=== PATIENT | female | born 1955 | race Two or more races ===

== ENCOUNTER 2024-06-25 09:08 | Inpatient (IN) | payer OTHER, MEDICAID ==
[~2024-06-25] VITALS: Ht 157.5 cm; Wt 42.2 kg
--- NOTE | 2024-06-25 09:42 | ED.PDOC ---
GI ASSESSMENT HPI Comments 69 year old female presents to the ED with chief complaint of diarrhea and blood in stool. Patient reports that she has been experiencing diarrhea with noted blood present in her stools and associated abdominal cramping for the past 5 days. Patient relays that she has been drinking 2 beers a day up until last week. Patient states she is currently on Baclofen for chronic body pains. Patient denies any N/V, hematemesis, fever, chills, dysuria, hematuria, or dizziness. Chief Complaint: Diarrhea Time Seen by MD: 09:39 Reviewed Notes: Nurses Notes, Medications, Allergies Allergies: Coded Allergies: NO KNOWN ALLERGIES (Unverified , 06/25/24) Information Source: Patient Mode of Arrival: Ambulatory Timing: Days Duration: Since onset Prehospital treatment: None Quality: Cramping Vomitus: None Stool: Blood Streaked, Loose Severity: Moderate Recent: None Recent Hx of: None Pain Location: Periumbilical Modifying Factors: Nothing Associated sign and symptoms: Diarrhea, Abdominal Pain, Blood in Stool Past Medical History PAST MEDICAL HISTORY: Arthritis, PUD, Seizures Surgical History: Denies all surgeries 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: 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 all 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 Hx Family History Family History: Reviewed,noncontributory to illness Social History Smoker: Non-Smoker Alcohol: Heavy Drugs: Marijuana Lives In: Home Constitutional: denies: chills, diaphoresis, fatigue, fever, malaise, sweats, weakness, others EENTM: denies: blurred vision, double vision, ear bleeding, ear discharge, ear drainage, ear pain, ear ringing, eye pain, eye redness, hearing loss, mouth pain, mouth swelling, nasal discharge, nose bleeding, nose congestion, nose pain, photophobia, tearing, throat pain, throat swelling, voice changes, others Respiratory: denies: cough, hemoptysis, orthopnea, SOB at rest, shortness of breath, SOB with excertion, stridor, wheezing, others Cardiovascular: denies: chest pain, dizzy spells, diaphoresis, Dyspnea on exertion, edema, irregular heart beat, left arm pain, lightheadedness, palpitations, PND, syncope, others Gastrointestinal: reports: abdominal pain, blood streaked bowels, diarrhea; denies: abdomen distended, constipated, dysphagia, difficulty swallowing, hematemesis, melena, nausea, poor appetite, poor fluid intake, rectal bleeding, rectal pain, vomiting, others Genitourinary: denies: abnormal vagina bleeding, burning, dyspareunia, dysuria, flank pain, frequency, hematuria, incontinence, pain, , vagina discharge, urgency, others Neurological: denies: dizziness, fainting, headache, left sided numbness, left sided weakness, numbness, paresthesia, pre-existing deficit, right sided numbness, right sided weakness, seizure, speech problems, tingling, tremors, weakness, others Musculoskeletal: denies: back pain, gout, joint pain, joint swelling, muscle pain, muscle stiffness, neck pain, others Integumetry: denies: bruises, change in color, change in hair/nails, dryness, laceration, lesions, lumps, rash, wounds, others Allergic/Immunocompromised: denies: Difficulty Healing, Frequent Infections, Hives, Itching, others Hematologic/Lymphatic: denies: anemia, blood clots, easy bleeding, easy bruising, swollen glands, others Endocrine: denies: excessive hunger, excessive sweating, excessive thirst, excessive urination, flushing, intolerance to cold, intolerance to heat, unexplained weight gain, unexplained weight loss, others Psychiatric: denies: anxiety, bipolar disorder, depression, hopeless, panic disorder, schizophrenia, sleepless, suicidal, others All Other Systems: Reviewed and Negative Physical Exam General Appearance: No Apparent Distress, Normal HEENT: Normal ENT Inspection, PERRL/EOMI Neck: Full Range of Motion, Non-Tender, Normal, Normal Inspection Respiratory: Chest Non-Tender, Lungs Clear, No Accessory Muscle Use, No Respiratory Distress, Normal Breath Sounds Cardiovascular: No Edema, No JVD, No Murmur, No Gallop, Normal Peripheral Pulses, Regular Rate/Rhythm Breast Exam: Deferred Gastrointestinal: No Organomegaly, No Pulsatile Mass, Normal Bowel Sounds, Soft, Tenderness, Other (Diarrhea for five days with a bleeding) Genitalia: Deferred Pelvic: Deferred Rectal: Deferred Extremities: No calf tenderness, Normal capillary refill, Normal inspection, Normal range of motion, Non-tender, No pedal edema Musculoskeletal : Apperance: Normal Neurologic: Alert, international controller II-XII nml as Tested, No Motor Deficits, Normal Affect, Normal Mood, No Sensory Deficits Cerebellar Function: Normal Reflexes: Normal Skin: Dry, Normal Color, Warm Peripheral Pulses: 1+ carotid (R), 1+ carotid (L) Lymphatic: No Adenopathy Was a procedure done? Was a procedure done?: No GI differential Dx Differential Diagnosis: Diverticular disease, Gastritis/PUD, Gastroenteritis, GI hemorrhage, Inflammatory BD, UTI, Dehydration, Diabetes/ DKA, Drug toxicity, Electrolyte Imbalance, Food Poisoning, Hypovolemia, Ischemic Bowel, Mass, Anemia X-Ray, Labs, Meds, VS Vital Signs Date Time Temp Pulse Resp B/P (MAP) Pulse Ox O2 Delivery O2 Flow Rate FiO2 06/25/24 10:09 97.8 96 18 139/92 (108) 98 97.8 06/25/24 10:09 96 18 98 Room Air 06/25/24 09:27 98.2 117 18 154/116 (129) 96 98.2 Lab Test 06/25/24 09:45 06/25/24 09:37 Range/Units White Blood Count 10.1 4.4-10.8 10^3/uL Red Blood Count 4.65 4.0-5.20 10^6/uL Hemoglobin 14.4 12.2-16.2 g/dL Hematocrit 43.4 36.0-46.0 % Mean Corpuscular Volume 93.4 80.0-100.0 fL Mean Corpuscular Hemoglobin 31.0 28.0-32.0 pg Mean Corpuscular Hemoglobin Concent 33.3 32.0-36.0 g/dL Red Cell Distribution Width 14.0 11.8-14.3 % Platelet Count 255 140-450 10^3/uL Mean Platelet Volume 9.6 6.9-10.8 fL Neutrophils (%) (Auto) 72.1 37.0-80.0 % Lymphocytes (%) (Auto) 20.6 10.0-50.0 % Monocytes (%) (Auto) 5.0 0.0-12.0 % Eosinophils (%) (Auto) 1.8 0.0-7.0 % Basophils (%) (Auto) 0.5 0.0-2.0 % Neutrophils # (Auto) 7.3 1.6-8.6 10 ^3/uL Lymphocytes # (Auto) 2.1 0.4-5.4 10 ^3/uL Monocytes # (Auto) 0.5 0-1.3 10 ^3/uL Eosinophils # (Auto) 0.2 0-0.8 10 ^3/uL Basophils # (Auto) 0 0-0.2 10 ^3/uL Nucleated Red Blood Cells 0.0 % Prothrombin Time 10.3 9.3-11.8 sec Prothrombin Time INR 0.97 0.9-1.15 Activated Partial Thromboplast Time 25.3 24.5-34.5 SEC Sodium Level 145 136-145 mmol/L Potassium Level 5.0 3.5-5.1 mmol/L Chloride Level 110 H 98-107 mmol/L Carbon Dioxide Level 26 20-31 mmol/L Anion Gap 9 5-15 Blood Urea Nitrogen 18 9-23 mg/dL Creatinine 0.80 0.550-1.02 mg/dL Glomerular Filtration Rate Calc 80 >90 mL/min BUN/Creatinine Ratio 22.5 H 10.0-20.0 Serum Glucose 111 H 74-106 mg/dL Calcium Level 10.3 8.7-10.4 mg/dL Magnesium Level 1.8 1.6-2.6 mg/dL Total Bilirubin 0.5 0.2-1.0 mg/dL Aspartate Amino Transferase (AST) 22 13-40 U/L Alanine Aminotransferase (ALT) 20 7-40 U/L Alkaline Phosphatase 77 46-116 U/L Total Protein 7.7 5.7-8.2 g/dL Albumin 4.9 H 3.2-4.8 g/dL Lipase 56 H 12-53 U/L Urine Color Yellow Yellow Urine Clarity Clear Clear Urine pH 5.5 5.0-9.0 Urine Specific [place] 1.023 1.001-1.035 Urine Protein Trace H Negative Urine Ketones Negative Negative Urine Blood Negative Negative /uL Urine Nitrite Negative Negative Urine Bilirubin Negative Negative Urine Urobilinogen Normal Negative mg/dL Urine Leukocyte Esterase Negative Negative /uL Urine RBC 1 0 - 4 /hpf Urine Microscopic WBC 2 0-5 /HPF Urine Squamous Epithelial Cells Few <5 /hpf Urine Bacteria None seen None Seen /hpf Urine Mucus Few None Seen Urine Glucose Normal Normal mg/dL Current Medications Medications (Trade) Dose Ordered Sig/Sean Route Start Time Stop Time Status Last Admin Sodium Chloride 1,000 ml @ 1,000 mls/hr Q1H ONCE IVB 06/25/24 09:45 06/25/24 10:44 DC 06/25/24 10:20 CT Abd/Pel: FINDINGS: The lung bases demonstrate atelectasis. Right adrenal gland unremarkable. Left adrenal gland and left kidney are removed. Small, pancreas unremarkable. No enhancing hepatic lesion. Cholecystectomy. Right kidney demonstrates no hydronephrosis. Stomach is partially distended. There is a large mass in the ascending colon measuring 7.7 x 4.3 cm which results in luminal narrowing. There also may be a segment of small bowel intussusception into this segment of the colonic mass. Normal appendix. Abdominal aortic atherosclerotic disease. Bladder partially distended. Large heterogeneously enhancing mass in the uterus measuring 8.5 x 6.8 cm. No free pelvic fluid. Bladder partially distended. No inguinal lymphadenopathy. No aggressive osseous process. IMPRESSION: 1. Large colonic mass within the ascending colon measuring 7.7 x 4.3 cm with luminal narrowing, most consistent with colonic neoplasm. Recommend GI and oncology consultation. 2. There may be a segment of the terminal ileum intussusception into the colonic mass/neoplasm 3. Large heterogeneously enhancing mass in the uterus measuring 8.5 x 6.8 cm, possible uterine leiomyoma but other etiologies including leiomyosarcoma can not be excluded. 4. Left nephrectomy/ adrenalectomy. 5. Other findings as described. X-Ray, Labs, Meds, VS Comment Course in the emergency department eventful patient came in complaining of persistent diarrhea bloody Chest x-ray shows COPD CBC normal Urine negative INR 0.97 CMP normal Lipase [address] of the abdomen and pelvis shows a large mass in the ascending colon with the terminal ileum into Ceftin into the colonic mass This also large mass in the uterus Patient has no pain except for the cramps from the diarrhea Patient will be admitted for further care Time of 1ST Reevaluation: 10:39 Reevaluation 1ST: Unchanged Time of 2ND Reevaluation: 12:23 Reevaluation 2ND: Unchanged Patient Education/Counseling: Diagnosis, Treatment, Prognosis Family Education/Counseling: Diagnosis, Treatment, Prognosis, No Family Present Departure 1 Departure Time of Disposition: 12:19 Impression: Primary Impression: Gastroenteritis Additional Impressions: Colonic neoplasm Uterine mass Rectal bleeding History of nephrectomy COPD (chronic obstructive pulmonary disease) Disposition: ADMITTED INPATIENT Admit to: Tele Condition: Guarded Critical Care Note Critical Care Time?: No Stability Stability form required: Yes Unstable for transfer: Telemetry monitoring (Telemetry monitoring required), Requires medication (Requires Med for stabilization) Heart Score Heart Score: Heart Score Response (Comments) Value History Slightly Suspicious 0 EKG N/A 0 Age >65 2 Risk Factors 1 or 2 risk factors 1 Troponin N/A 0 Total 3 I personally scribed for RUTH KUHN MD ([email or web address]) on 06/25/24 at 09:42. Electronically submitted by Phill Alexander ([email or web address]). I personally scribed for RUTH KUHN MD ([email or web address]) on 06/25/24 at 11:38. Electronically submitted by Phill Alexander ([email or web address]). RUTH KUHN MD Jun 25, 2024 09:42
[2024-06-25 09:57] LABS: Urine Bacteria None Seen /hpf (None Seen)
[2024-06-25 10:12] LABS: Basophils # (auto) 0 10 ^3/uL (0-0.2); Basophils % (auto) 0.5 % (0.0-2.0); Eosinophils # (auto) 0.2 10 ^3/uL (0-0.8); Eosinophils % (auto) 1.8 % (0.0-7.0); Hematocrit 43.4 % (36.0-46.0); Hemoglobin 14.4 g/dL (12.2-16.2); Lymphocytes # (auto) 2.1 10 ^3/uL (0.4-5.4); Lymphocytes % (auto) 20.6 % (10.0-50.0); Mean Corpuscular Hgb Conc. 33.3 g/dL (32.0-36.0); Mean Corpuscular Volume 93.4 fL (80.0-100.0); Monocytes # (auto) 0.5 10 ^3/uL (0-1.3); Neutrophils # (auto) 7.3 10 ^3/uL (1.6-8.6); Neutrophils % (auto) 72.1 % (37.0-80.0); Platelet Count (auto) 255 10^3/uL (140-450); Red Blood Cells 4.65 10^6/uL (4.0-5.20); White Blood Cell 10.1 10^3/uL (4.4-10.8)
[2024-06-25 10:16] LABS: Urine Blood Negative /uL (Negative); Urine Clarity Clear (Clear); Urine Color Yellow (Yellow); Urine Mucus FEW (None Seen); Urine Protein, UAD TRACE (Negative); Urine Specific Gravity 1.023 (1.001-1.035); Urine Squamous Epithelial Cell FEW /hpf (<5); Urine Urobilinogen Normal (Negative); Urine WBC 2 /HPF (0-5); Urine pH 5.5 (5.0-9.0)
[2024-06-25] MEDS: SODIUM CHLORIDE 0.9% 1,000 ML IVB ONE (10:20)
[2024-06-25 10:23] LABS: Alanine Aminotransferase 20 U/L (7-40); Alkaline Phosphatase 77 U/L (46-116); Anion Gap 9 (5-15); Aspartate Aminotransferase 22 U/L (13-40); BUN/Creatinine Ratio 22.5 (10.0-20.0); Bilirubin, Total 0.5 mg/dL (0.2-1.0); Blood Urea Nitrogen 18 mg/dL (9-23); Calcium 10.3 mg/dL (8.7-10.4); Carbon Dioxide 26 mmol/L (20-31); Magnesium 1.8 mg/dL (1.6-2.6); Sodium 145 mmol/L (136-145); Total Protein 7.7 g/dL (5.7-8.2)
[2024-06-25 10:25] LABS: Albumin 4.9 g/dL (3.2-4.8); Chloride 110 mmol/L (98-107); Glucose 111 mg/dL (74-106); Lipase 56 U/L (12-53)
[2024-06-25 10:29] LABS: INR 0.97 (0.9-1.15); Partial Thromboplastin Time 25.3 SEC (24.5-34.5); Prothrombin Time 10.3 sec (9.3-11.8)
[2024-06-25] MEDS: IOHEXOL 300 MG/ML 100ML BOTTLE IJ ONE (10:49)
--- NOTE | 2024-06-25 11:32 | DVH ---
Indication: Abdominal pain rectal bleeding diarrhea Technique: CT axial images of the abdomen and pelvis are obtained with intravenous contrast. Coronal and sagittal reformats were obtained. Radiation Dose Information: CTDI volume is 5.07 mGy. Dose-length product is 215.53 mGy*cm Comparison: None FINDINGS: The lung bases demonstrate atelectasis. Right adrenal gland unremarkable. Left adrenal gland and left kidney are removed. Small, pancreas unremarkable. No enhancing hepatic lesion. Cholecystectomy. Right kidney demonstrates no hydronephrosis. Stomach is partially distended. There is a large mass in the ascending colon measuring 7.7 x 4.3 cm which results in luminal narrowin g. There also may be a segment of small bowel intussusception into this segment of the colonic mass. Normal appendix. Abdominal aortic atherosclerotic disease. Bladder partially distended. Large heterogeneously enhancing mass in the uterus measuring 8.5 x 6.8 cm. No free pelvic fluid. Danie dder partially distended. No inguinal lymphadenopathy. No aggressive osseous process. IMPRESSION: 1. Large colonic mass within the ascending colon measuring 7.7 x 4.3 cm with luminal narrowing, most consistent with colonic neoplasm. Recommend GI and oncology consultation. 2. There may be a segment of the terminal ileum intussusception into the colonic mass/neoplasm 3. Large heterogeneously enhancing mass in the uterus measuring 8.5 x 6.8 cm, possible uterine leiomy rajan but other etiologies including leiomyosarcoma can not be excluded. 4. Left nephrectomy/ adrenalectomy. 5. Other findings as described.
--- NOTE | 2024-06-25 11:50 | DVH ---
Procedure: XY CHEST TWO VIEWS ROUTINE 06/25/2024 10:35 AM Indication: COPD Comparison: None TECHNIQUE: XY CHEST TWO VIEWS ROUTINE FINDINGS: Medical devices: None. Cardiomediastinal: The heart is normal in size. Pulmonary vasculature is within normal limits. Athero sclerotic calcification of the aortic arch noted. Lungs: Hyperaerated lungs. No focal pulmonary opacity is seen. The costophrenic angles are clear. N o pneumothorax. Bones/soft tissues: No acute abnormality is noted. IMPRESSION: 1. No acute cardiopulmonary disease. Changes of COPD.
[2024-06-25] MEDS ORDERED: ACETAMINOPHEN 325 MG TAB PO PRN (12:45)
[2024-06-25 13:00] VITALS: PULSE 80; RESP 14; O2SAT 98
[2024-06-25] MEDS ORDERED: DULO1CAP5 PO (13:12)
[2024-06-25] MEDS ORDERED: GABA800T97 PO (13:12)
[2024-06-25] MEDS ORDERED: LEVE500T3 PO (13:12)
[2024-06-25] MEDS: SODIUM CHLORIDE 0.9% 1,000 ML IV SCH (13:30)
--- NOTE | 2024-06-25 13:35 | DVHHP2 ---
History of Present Illness Reason for Visit: Bloody diarrhea History of Present Illness QuigleyNoris alvarez is a 69-year-old female with past medical history of arthritis, PUD, epilepsy, and left nephrectomy who presents to the ED with bloody diarrhea and cramps with the abdominal pain x5 days. Patient reports that she has been h olding this off for some time but she knows that she gets bloody diarrhea constantly because of her peptic ulcer disease. Patient states that the pain is 5/10 intermittent and crampy like. Patient denies any chest pain, shortness of breath, fever, chills, recent trauma or injury, recent ingestion of spoiled food, recent sick contacts, lightheadedness, weakness, dizziness, nausea, or vomiting. Upon examination when given information about the CT abdominal pelvis results patient became very emotional and is unaware of any abnormalities or other diagnoses. MAILROOM PERSONNEL: Other (Epilepsy) Past Medical History Peptic ulcer disease Arthritis Past Surgical History: Other (Left nephrectomy) Family History: None, Other (Both ) Smoke: Quit ALCOHOL: heavy Drugs: Marijuana Lives: with Family Domestic Violence: Neg Review of Systems Gastrointestinal: Abdominal Pain, Diarrhea, Hematochezia Allergies: Coded Allergies: NO KNOWN ALLERGIES (Unverified , 06/25/24) Medications Current Medications Medications Dose Ordered Sig/Sean Route Start Time Stop Time Status Last Admin Dose Admin Sodium Chloride 1,000 ml @ 70 mls/hr [id number] IV 06/25/24 12:45 UNV Acetaminophen/ Hydrocodone Bitart 1 tab Q4HP PRN PO 06/25/24 12:45 UNV Ondansetron HCl 4 mg Q4HP PRN IV 06/25/24 12:45 UNV Acetaminophen 650 mg Q6HP PRN PO 06/25/24 12:45 UNV Morphine Sulfate 2 mg Q4HPRN PRN IV 06/25/24 12:45 UNV Duloxetine HCl 30 mg BID PO 06/25/24 22:00 UNV Levetiracetam 500 mg BID PO 06/25/24 22:00 UNV Patient Own Medication 1 tab TID PO 06/25/24 14:00 UNV Exam Vital Signs Vital Signs Date Time Temp Pulse Resp B/P (MAP) Pulse Ox O2 Delivery O2 Flow Rate FiO2 06/25/24 12:16 98.0 82 16 157/98 (117) 98 98.0 06/25/24 10:09 Room Air General Appearance: Alert, Oriented X3, Cooperative, No acute distress HEENT: Atraumatic, PERRLA, EOMI, Mucous membr. moist/pink Respiratory: Normal air movement Cardiovascular: Normal S1, Normal S2, No murmurs Abdominal: Soft Extremities: No clubbing, No cyanosis, No edema, Normal pulses, No tenderness/swelling Skin: No significant lesion Neuro: Normal speech, Normal tone, Sensation intact Psych/Mental Status: Mental status NL Labs/Xrays Labs Test 06/25/24 09:45 06/25/24 09:37 Range/Units White Blood Count 10.1 4.4-10.8 10^3/uL Red Blood Count 4.65 4.0-5.20 10^6/uL Hemoglobin 14.4 12.2-16.2 g/dL Hematocrit 43.4 36.0-46.0 % Mean Corpuscular Volume 93.4 80.0-100.0 fL Mean Corpuscular Hemoglobin 31.0 28.0-32.0 pg Mean Corpuscular Hemoglobin Concent 33.3 32.0-36.0 g/dL Red Cell Distribution Width 14.0 11.8-14.3 % Platelet Count 255 140-450 10^3/uL Mean Platelet Volume 9.6 6.9-10.8 fL Neutrophils (%) (Auto) 72.1 37.0-80.0 % Lymphocytes (%) (Auto) 20.6 10.0-50.0 % Monocytes (%) (Auto) 5.0 0.0-12.0 % Eosinophils (%) (Auto) 1.8 0.0-7.0 % Basophils (%) (Auto) 0.5 0.0-2.0 % Neutrophils # (Auto) 7.3 1.6-8.6 10 ^3/uL Lymphocytes # (Auto) 2.1 0.4-5.4 10 ^3/uL Monocytes # (Auto) 0.5 0-1.3 10 ^3/uL Eosinophils # (Auto) 0.2 0-0.8 10 ^3/uL Basophils # (Auto) 0 0-0.2 10 ^3/uL Nucleated Red Blood Cells 0.0 % Prothrombin Time 10.3 9.3-11.8 sec Prothrombin Time INR 0.97 0.9-1.15 Activated Partial Thromboplast Time 25.3 24.5-34.5 SEC Sodium Level 145 136-145 mmol/L Potassium Level 5.0 3.5-5.1 mmol/L Chloride Level 110 H 98-107 mmol/L Carbon Dioxide Level 26 20-31 mmol/L Anion Gap 9 5-15 Blood Urea Nitrogen 18 9-23 mg/dL Creatinine 0.80 0.550-1.02 mg/dL Glomerular Filtration Rate Calc 80 >90 mL/min BUN/Creatinine Ratio 22.5 H 10.0-20.0 Serum Glucose 111 H 74-106 mg/dL Calcium Level 10.3 8.7-10.4 mg/dL Magnesium Level 1.8 1.6-2.6 mg/dL Total Bilirubin 0.5 0.2-1.0 mg/dL Aspartate Amino Transferase (AST) 22 13-40 U/L Alanine Aminotransferase (ALT) 20 7-40 U/L Alkaline Phosphatase 77 46-116 U/L Total Protein 7.7 5.7-8.2 g/dL Albumin 4.9 H 3.2-4.8 g/dL Lipase 56 H 12-53 U/L Urine Color Yellow Yellow Urine Clarity Clear Clear Urine pH 5.5 5.0-9.0 Urine Specific [place] 1.023 1.001-1.035 Urine Protein Trace H Negative Urine Ketones Negative Negative Urine Blood Negative Negative /uL Urine Nitrite Negative Negative Urine Bilirubin Negative Negative Urine Urobilinogen Normal Negative mg/dL Urine Leukocyte Esterase Negative Negative /uL Urine RBC 1 0 - 4 /hpf Urine Microscopic WBC 2 0-5 /HPF Urine Squamous Epithelial Cells Few <5 /hpf Urine Bacteria None seen None Seen /hpf Urine Mucus Few None Seen Urine Glucose Normal Normal mg/dL ORDERING PHYSICIAN: RUTH KUHN MD PROCEDURE(s): CXR2 - CHEST TWO VIEWS ROUTINE REASON: COPD ORDER NUMBER(s): [id number], ACCESSION NUMBER(s): [id number] Procedure: XY CHEST TWO VIEWS ROUTINE 06/25/2024 10:35 AM Indication: COPD Comparison: None TECHNIQUE: XY CHEST TWO VIEWS ROUTINE FINDINGS: Medical devices: None. Cardiomediastinal: The heart is normal in size. Pulmonary vasculature is within normal limits. Atherosclerotic calcification of the aortic arch noted. Lungs: Hyperaerated lungs. No focal pulmonary opacity is seen. The costophrenic angles are clear. No pneumothorax. Bones/soft tissues: No acute abnormality is noted. IMPRESSION: 1. No acute cardiopulmonary disease. Changes of COPD. Indication: Abdominal pain rectal bleeding diarrhea Technique: CT axial images of the abdomen and pelvis are obtained with intr avenous contrast. Coronal and sagittal reformats were obtained. Radiation Dose Information: CTDI volume is 5.07 mGy. Dose-length product is 215.53 mGy*cm Comparison: None FINDINGS: The lung bases demonstrate atelectasis. Right adrenal gland unremarkable. Left adrenal gland and left kidney are removed. Small, pancreas unremarkable. No enhancing hepatic lesion. Cholecystectomy. Right kidney demonstrates no hydronephrosis. Stomach is partially distended. There is a large mass in the ascending colon measuring 7.7 x 4.3 cm which results in luminal narrowing. There also may be a segment of small bowel intussusception into this segment of the colonic mass. Normal appendix. Abdominal aortic atherosclerotic disease. Bladder partially distended. Large heterogeneously enhancing mass in the uterus measuring 8.5 x 6.8 cm. No free pelvic fluid. Bladder partially distended. No inguinal lymphadenopathy. No aggressive osseous process. IMPRESSION: 1. Large colonic mass within the ascending colon measuring 7.7 x 4.3 cm with luminal narrowing, most consistent with colonic neoplasm. Recommend GI and oncology consultation. 2. There may be a segment of the terminal ileum intussusception into the colonic mass/neoplasm 3. Large heterogeneously enhancing mass in the uterus measuring 8.5 x 6.8 cm, possible uterine leiomyoma but other etiologies including leiomyosarcoma can not be excluded. 4. Left nephrectomy/ adrenalectomy. 5. Other findings as described. Assessment/Plan Assessment/Plan Assessment Intractable abdominal pain rule out GI bleed Large colonic mass within the ascending colon measuring 7.7 x 4.3 cm with luminal narrowing, most consistent with colonic neoplasm Possible terminal ileum intussusception into the colonic mass/neoplasm ETOH abuse Marijuana use History of arthritis History of epilepsy History of PUD History of left nephrectomy Plan Admit to med surge UA NS 1 L Chest x-ray Mag level PT/PTT CT abdomen and pelvis UA Lipase IV fluids NPO PPIs SCDs Stool occult GI consult Oncology consult General surgery consult Home medications reconciled Discussed plan of care with patient and nurse DVT prophylaxis-SCDs PUD prophylaxis-PPIs Counseled patient on cessation of marijuana use Counseled patient on cessation of EtOH abuse Plan discussed with: Patient My Orders Orders - NIDA BELL Procedure Category Date Status Time * Surgical Consult CONS 06/25/24 Transmitted *Consult Dr. Liz Loco CONS 06/25/24 Transmitted 12:45 Admit ADMIT 06/25/24 Transmitted 12:45 Allergies SAM 06/25/24 In Process 12:45 Code Status CODE 06/25/24 Transmitted 12:45 Sodium Chloride 0.9% PHA 06/25/24 Logged 12:45 Hydrocodone-Acet PHA 06/25/24 Logged 5/325mg Tab ([place] 12:45 Ondansetron Hcl PHA 06/25/24 Logged (Zofran) 12:45 Complete Blood Count LAB 06/26/24 Verified 04:00 Comprehensive LAB 06/26/24 Verified Metabolic Panel 04:00 Npo (Nothing By DIET 06/25/24 Transmitted Mouth) Diet Lunch Acetaminophen Tablet PHA 06/25/24 Logged (Tylenol Tablet) 12:45 Morphine Sulfate PHA 06/25/24 Logged Injection 12:45 * Gi [facility] Business Support Administrator CONS 06/25/24 Transmitted 12:45 Sequential SAM 06/25/24 In Process Compression Device 12:45 Duloxetine Hcl PHA 06/25/24 Logged Capsule (Cymbalta 22:00 Levetiracetam Tablet PHA 06/25/24 Logged (Keppra Tablet) 22:00 (Nf) Gabapentin PHA 06/25/24 Logged 14:00 Pantoprazole PHA 06/25/24 Verified (Protonix) 13:15 Date of Service: Jun 25, 2024 Billing Provider: NIDA BELL Common Visit Codes: [id number] INP/OBS CARE (HIGH) NIDA BELL Jun 25, 2024 13:35
[2024-06-25] MEDS: PANTOPRAZOLE 40 MG/10 ML VIAL INJ IV SCH (14:39)
[2024-06-25 17:36] VITALS: BP 148/78; PULSE 82; PULSE 92; RESP 18; TEMP 98.6; O2SAT 97; O2SAT 98
[2024-06-25] MEDS ORDERED: MONT10TA23 PO (18:31)
--- NOTE | 2024-06-25 18:53 | DVHINCON2 ---
Date of service: Jun 25, 2024 Referring Physician Jaiden Foster Reason for Consultation Rectal bleeding and colonic mass History of Present Illness QuigleyNoris is a 69-year-old female with past medical history of arthritis, PUD, epilepsy, and left nephrectomy who presents to the ED with bloody diarrhea and cramps with the abdominal pain 5/10 x5 days. Patient has been having ongoing symptoms for some time but attributed her bloody diarrhea to her history of peptic ulcer disease. Patient reports that she has been holding this off for some time but she knows that she gets bloody diarrhea constantly because of her peptic ulcer disease. 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) Past Medical History Peptic ulcer disease Arthritis Past Surgical History Past Surgical History: Other (Left nephrectomy) Family History: Diabetes mellitus G8 FATHER, Onset:40 - Hypertension G8 MOTHER, Onset:40 - G8 FATHER, Onset: Allergies: Coded Allergies: NO KNOWN ALLERGIES (Unverified , 06/25/24) Home Meds Reported Medications Montelukast Sodium (Singulair) 10 Mg Tab, 10 MG PO DAILY for Asthma for 90 Days, #90 TAB 06/25/24 Levetiracetam (Levetiracetam) 500 Mg Tab, 1 TAB PO BID 06/25/24 Gabapentin (Gabapentin) 800 Mg Tab, 1 TAB PO TID 06/25/24 Duloxetine HCl (Duloxetine HCl) 30 Mg Cap, 1 CAP PO BID 06/25/24 Current Medications Current Medications Medications (Trade) Dose Ordered Sig/Sean Route PRN Reason Start Time Stop Time Status Last Admin Sodium Chloride 1,000 ml @ 70 mls/hr [id number] IV 06/25/24 12:45 06/25/24 13:30 Acetaminophen/ Hydrocodone Bitart ([place] 5/325MG Tab) 1 tab Q4HP PRN PO MODERATE PAIN (4-6 PAIN SCALE) 06/25/24 12:45 Ondansetron HCl (Zofran) 4 mg Q4HP PRN IV NAUSEA / VOMITING 06/25/24 12:45 Acetaminophen (Tylenol Tablet) 650 mg Q6HP PRN PO PAIN SCALE 1-3 OR TEMP>100.4 06/25/24 12:45 Morphine Sulfate 2 mg Q4HPRN PRN IV SEVERE PAIN (7-10 PAIN SCALE) 06/25/24 12:45 Duloxetine HCl (Cymbalta Capsule) 30 mg BID PO 06/25/24 22:00 Levetiracetam (Keppra Tablet) 500 mg BID PO 06/25/24 22:00 Gabapentin (Neurontin Capsule) 800 mg BID PO 06/25/24 22:00 Pantoprazole Sodium (Protonix) 40 mg BID IV 06/25/24 13:15 06/25/24 14:39 Vital Signs Vital Signs Date Time Temp Pulse Resp B/P (MAP) Pulse Ox O2 Delivery O2 Flow Rate FiO2 06/25/24 17:36 98.6 92 18 148/78 (101) 97 98.6 06/25/24 17:36 Room Air* 0 21 Physical Exam Hemodynamically stable Full examination deferred Labs/Diagnostic Data Labs Test 06/25/24 09:45 06/25/24 09:37 Range/Units White Blood Count 10.1 4.4-10.8 10^3/uL Red Blood Count 4.65 4.0-5.20 10^6/uL Hemoglobin 14.4 12.2-16.2 g/dL Hematocrit 43.4 36.0-46.0 % Mean Corpuscular Volume 93.4 80.0-100.0 fL Mean Corpuscular Hemoglobin 31.0 28.0-32.0 pg Mean Corpuscular Hemoglobin Concent 33.3 32.0-36.0 g/dL Red Cell Distribution Width 14.0 11.8-14.3 % Platelet Count 255 140-450 10^3/uL Mean Platelet Volume 9.6 6.9-10.8 fL Neutrophils (%) (Auto) 72.1 37.0-80.0 % Lymphocytes (%) (Auto) 20.6 10.0-50.0 % Monocytes (%) (Auto) 5.0 0.0-12.0 % Eosinophils (%) (Auto) 1.8 0.0-7.0 % Basophils (%) (Auto) 0.5 0.0-2.0 % Neutrophils # (Auto) 7.3 1.6-8.6 10 ^3/uL Lymphocytes # (Auto) 2.1 0.4-5.4 10 ^3/uL Monocytes # (Auto) 0.5 0-1.3 10 ^3/uL Eosinophils # (Auto) 0.2 0-0.8 10 ^3/uL Basophils # (Auto) 0 0-0.2 10 ^3/uL Nucleated Red Blood Cells 0.0 % Prothrombin Time 10.3 9.3-11.8 sec Prothrombin Time INR 0.97 0.9-1.15 Activated Partial Thromboplast Time 25.3 24.5-34.5 SEC Sodium Level 145 136-145 mmol/L Potassium Level 5.0 3.5-5.1 mmol/L Chloride Level 110 H 98-107 mmol/L Carbon Dioxide Level 26 20-31 mmol/L Anion Gap 9 5-15 Blood Urea Nitrogen 18 9-23 mg/dL Creatinine 0.80 0.550-1.02 mg/dL Glomerular Filtration Rate Calc 80 >90 mL/min BUN/Creatinine Ratio 22.5 H 10.0-20.0 Serum Glucose 111 H 74-106 mg/dL Calcium Level 10.3 8.7-10.4 mg/dL Magnesium Level 1.8 1.6-2.6 mg/dL Total Bilirubin 0.5 0.2-1.0 mg/dL Aspartate Amino Transferase (AST) 22 13-40 U/L Alanine Aminotransferase (ALT) 20 7-40 U/L Alkaline Phosphatase 77 46-116 U/L Total Protein 7.7 5.7-8.2 g/dL Albumin 4.9 H 3.2-4.8 g/dL Lipase 56 H 12-53 U/L Urine Color Yellow Yellow Urine Clarity Clear Clear Urine pH 5.5 5.0-9.0 Urine Specific [place] 1.023 1.001-1.035 Urine Protein Trace H Negative Urine Ketones Negative Negative Urine Blood Negative Negative /uL Urine Nitrite Negative Negative Urine Bilirubin Negative Negative Urine Urobilinogen Normal Negative mg/dL Urine Leukocyte Esterase Negative Negative /uL Urine RBC 1 0 - 4 /hpf Urine Microscopic WBC 2 0-5 /HPF Urine Squamous Epithelial Cells Few <5 /hpf Urine Bacteria None seen None Seen /hpf Urine Mucus Few None Seen Urine Glucose Normal Normal mg/dL CT SCAN ABD PELVIS IMPRESSION: 1. Large colonic mass within the ascending colon measuring 7.7 x 4.3 cm with luminal narrowing, most consistent with colonic neoplasm. Recommend GI and oncology consultation. 2. There may be a segment of the terminal ileum intussusception into the colonic mass/neoplasm 3. Large heterogeneously enhancing mass in the uterus measuring 8.5 x 6.8 cm, possible uterine leiomyoma but other etiologies including leiomyosarcoma can not be excluded. 4. Left nephrectomy/ adrenalectomy. 5. Other findings as described. Problems(with codes): (1) Uterine mass (2) Colonic neoplasm (3) Rectal bleeding Plan/Recommendation Plan Ice chips and clear liquids IV fluid hydration IV antibiotics Check CEA level Surgical consult to decide if a preop colonoscopy is required I will arrange colonoscopy once the patient has been stabilized in the next 48- 72 hours if she is able to tolerate a bowel prep Plan discussed with: Other (Dr Nancy David) JAKOB DAVID MD Jun 25, 2024 18:53
[2024-06-25 20:00] VITALS: RESP 18
[2024-06-25 20:43] VITALS: BP 153/96; PULSE 85; RESP 16; TEMP 98.2; O2SAT 96
--- NOTE | 2024-06-25 21:12 | DVHINCON2 ---
Date of service: Jun 25, 2024 Family History: Diabetes mellitus G8 FATHER, Onset:40s - Hypertension G8 MOTHER, Onset:40s - 50 G8 FATHER, Onset:40s - 50 Allergies: Coded Allergies: NO KNOWN ALLERGIES (Unverified , 06/25/24) Home Meds Reported Medications Montelukast Sodium (Singulair) 10 Mg Tab, 10 MG PO DAILY for Asthma for 90 Days, #90 TAB 06/25/24 Levetiracetam (Levetiracetam) 500 Mg Tab, 1 TAB PO BID 06/25/24 Gabapentin (Gabapentin) 800 Mg Tab, 1 TAB PO TID 06/25/24 Duloxetine HCl (Duloxetine HCl) 30 Mg Cap, 1 CAP PO BID 06/25/24 Current Medications Current Medications Medications (Trade) Dose Ordered Sig/Sean Route PRN Reason Start Time Stop Time Status Last Admin Sodium Chloride 1,000 ml @ 70 mls/hr [id number] IV 06/25/24 12:45 06/25/24 13:30 Acetaminophen/ Hydrocodone Bitart ([place] 5/325MG Tab) 1 tab Q4HP PRN PO MODERATE PAIN (4-6 PAIN SCALE) 06/25/24 12:45 Ondansetron HCl (Zofran) 4 mg Q4HP PRN IV NAUSEA / VOMITING 06/25/24 12:45 Acetaminophen (Tylenol Tablet) 650 mg Q6HP PRN PO PAIN SCALE 1-3 OR TEMP>100.4 06/25/24 12:45 Morphine Sulfate 2 mg Q4HPRN PRN IV SEVERE PAIN (7-10 PAIN SCALE) 06/25/24 12:45 Duloxetine HCl (Cymbalta Capsule) 30 mg BID PO 06/25/24 22:00 Levetiracetam (Keppra Tablet) 500 mg BID PO 06/25/24 22:00 Gabapentin (Neurontin Capsule) 800 mg BID PO 06/25/24 22:00 Pantoprazole Sodium (Protonix) 40 mg BID IV 06/25/24 13:15 06/25/24 14:39 Vital Signs Vital Signs Date Time Temp Pulse Resp B/P (MAP) Pulse Ox O2 Delivery O2 Flow Rate FiO2 06/25/24 20:43 98.2 85 16 153/96 (115) 96 98.2 06/25/24 17:36 Room Air* 0 21 Labs/Diagnostic Data Labs Test 06/25/24 09:45 06/25/24 09:37 Range/Units White Blood Count 10.1 4.4-10.8 10^3/uL Red Blood Count 4.65 4.0-5.20 10^6/uL Hemoglobin 14.4 12.2-16.2 g/dL Hematocrit 43.4 36.0-46.0 % Mean Corpuscular Volume 93.4 80.0-100.0 fL Mean Corpuscular Hemoglobin 31.0 28.0-32.0 pg Mean Corpuscular Hemoglobin Concent 33.3 32.0-36.0 g/dL Red Cell Distribution Width 14.0 11.8-14.3 % Platelet Count 255 140-450 10^3/uL Mean Platelet Volume 9.6 6.9-10.8 fL Neutrophils (%) (Auto) 72.1 37.0-80.0 % Lymphocytes (%) (Auto) 20.6 10.0-50.0 % Monocytes (%) (Auto) 5.0 0.0-12.0 % Eosinophils (%) (Auto) 1.8 0.0-7.0 % Basophils (%) (Auto) 0.5 0.0-2.0 % Neutrophils # (Auto) 7.3 1.6-8.6 10 ^3/uL Lymphocytes # (Auto) 2.1 0.4-5.4 10 ^3/uL Monocytes # (Auto) 0.5 0-1.3 10 ^3/uL Eosinophils # (Auto) 0.2 0-0.8 10 ^3/uL Basophils # (Auto) 0 0-0.2 10 ^3/uL Nucleated Red Blood Cells 0.0 % Prothrombin Time 10.3 9.3-11.8 sec Prothrombin Time INR 0.97 0.9-1.15 Activated Partial Thromboplast Time 25.3 24.5-34.5 SEC Sodium Level 145 136-145 mmol/L Potassium Level 5.0 3.5-5.1 mmol/L Chloride Level 110 H 98-107 mmol/L Carbon Dioxide Level 26 20-31 mmol/L Anion Gap 9 5-15 Blood Urea Nitrogen 18 9-23 mg/dL Creatinine 0.80 0.550-1.02 mg/dL Glomerular Filtration Rate Calc 80 >90 mL/min BUN/Creatinine Ratio 22.5 H 10.0-20.0 Serum Glucose 111 H 74-106 mg/dL Calcium Level 10.3 8.7-10.4 mg/dL Magnesium Level 1.8 1.6-2.6 mg/dL Total Bilirubin 0.5 0.2-1.0 mg/dL Aspartate Amino Transferase (AST) 22 13-40 U/L Alanine Aminotransferase (ALT) 20 7-40 U/L Alkaline Phosphatase 77 46-116 U/L Total Protein 7.7 5.7-8.2 g/dL Albumin 4.9 H 3.2-4.8 g/dL Lipase 56 H 12-53 U/L Urine Color Yellow Yellow Urine Clarity Clear Clear Urine pH 5.5 5.0-9.0 Urine Specific [place] 1.023 1.001-1.035 Urine Protein Trace H Negative Urine Ketones Negative Negative Urine Blood Negative Negative /uL Urine Nitrite Negative Negative Urine Bilirubin Negative Negative Urine Urobilinogen Normal Negative mg/dL Urine Leukocyte Esterase Negative Negative /uL Urine RBC 1 0 - 4 /hpf Urine Microscopic WBC 2 0-5 /HPF Urine Squamous Epithelial Cells Few <5 /hpf Urine Bacteria None seen None Seen /hpf Urine Mucus Few None Seen Urine Glucose Normal Normal mg/dL Assessment [id number] LOWER GI BLEED AFEBRILE VSS ABD SOFT MILD TENDER LOWER ABD CT SCAN R COLON MASS GI EVAL ONGOING AWAIT ONCOLOGY EVAL CONSIDER EMERGENT SURGERY BASED ON ONGOING EVAL Plan discussed with: Patient VILMA STRANGE MD Jun 25, 2024 21:12
--- NOTE | 2024-06-25 21:22 | DVHINCON2 ---
DATE OF CONSULTATION: 06/25/2024 HISTORY OF PRESENT ILLNESS: This patient is 69 years old, coming in with mild abdominal pain and bloody diarrhea with cramps as well for about 5 to 10 days, some nausea, but no vomiting. No hematemesis, melena. No bleeding. She did have a bleed as I mentioned from her rectum and sometimes it is dark blood, sometimes it is fresh blood and she thinks it is related to peptic ulcer disease. PAST MEDICAL HISTORY: Peptic ulcer disease. PAST SURGICAL HISTORY: Left nephrectomy, details of that are not clear. PHYSICAL EXAMINATION: VITAL SIGNS: She is afebrile with stable signs. HEENT: No evidence of pallor, cyanosis, or jaundice. NECK: Supple, nontender with no thyromegaly, lymphadenopathy. CHEST AND LUNGS: Clear. HEART: Within normal limits. ABDOMEN: Soft. She is tender in the lower abdomen. No rebound. EXTREMITIES: Unremarkable. NEUROLOGIC: She is intact. DIAGNOSTIC DATA: White cell count is 10.1. Hemoglobin is 14.4. Liver enzymes are within normal limits. Lipase is 56, is mildly high. The CT scan is suggesting a large mass in the ascending colon. Rule out colonic neoplasm. PLAN: Will be to consider a GI evaluation, is ongoing with oncology consultation as well and then the plan will be to consider surgery based upon ongoing evaluation. MD JENAE Meza/PAULINO TID: [id number] RECEIPT: [id number] cc: Tika Foster
[2024-06-25] MEDS: GABAPENTIN 400 MG CAP PO SCH (22:19)
[2024-06-25] MEDS: levETIRAcetam 500 MG TAB PO SCH (22:19)
[2024-06-25] MEDS: HYDROcodone-ACET 5/325MG TAB PO PRN (22:20)
[2024-06-25] MEDS: DULoxetine HCL 30 MG CAP PO SCH (22:20)
[2024-06-26] VITALS (9 sets, daily range): BP systolic 131–182; BP diastolic 77–105; PULSE 71–81; RESP 17–18; TEMP 97.4–98.2; O2SAT 95–98
[2024-06-26] MEDS: cloNIDine HCL 0.1 MG TAB PO ONE (03:35)
[2024-06-26 06:08] LABS: Basophils # (auto) 0 10 ^3/uL (0-0.2); Basophils % (auto) 0.5 % (0.0-2.0); Eosinophils # (auto) 0.2 10 ^3/uL (0-0.8); Eosinophils % (auto) 2.6 % (0.0-7.0); Hematocrit 38.5 % (36.0-46.0); Hemoglobin 13.4 g/dL (12.2-16.2); Lymphocytes % (auto) 21.1 % (10.0-50.0); Mean Corpuscular Hemoglobin 31.6 pg (28.0-32.0); Mean Corpuscular Hgb Conc. 34.8 g/dL (32.0-36.0); Mean Corpuscular Volume 90.8 fL (80.0-100.0); Monocytes # (auto) 0.6 10 ^3/uL (0-1.3); Monocytes % (auto) 6.1 % (0.0-12.0); Neutrophils # (auto) 6.6 10 ^3/uL (1.6-8.6); Neutrophils % (auto) 69.7 % (37.0-80.0); Nucleated Red Blood Cells % 0.1 %; Platelet Count (auto) 201 10^3/uL (140-450); Red Blood Cells 4.24 10^6/uL (4.0-5.20); Red Cell Distribution Width 13.4 % (11.8-14.3); White Blood Cell 9.4 10^3/uL (4.4-10.8)
[2024-06-26 06:17] LABS: Alanine Aminotransferase 19 U/L (7-40); Alkaline Phosphatase 68 U/L (46-116); Anion Gap 9 (5-15); Aspartate Aminotransferase 20 U/L (13-40); Blood Urea Nitrogen 11 mg/dL (9-23); Calcium 9.6 mg/dL (8.7-10.4); Carbon Dioxide 23 mmol/L (20-31); Glucose 96 mg/dL (74-106); Sodium 140 mmol/L (136-145)
[2024-06-26 06:18] LABS: Albumin 4.3 g/dL (3.2-4.8); Bilirubin, Total 0.8 mg/dL (0.2-1.0)
[2024-06-26 06:43] LABS: Chloride 108 mmol/L (98-107)
--- NOTE | 2024-06-26 11:52 | DVHPN2 ---
Reviewed: Care Plan, H&P, Labs, Medications, Previous Orders, Radiology Changes from previous H/P or p: No Changes Gastrointestinal: Abdominal Pain, Diarrhea, Hematochezia Objective Vitals Vital Signs Date Time Temp Pulse Resp B/P (MAP) Pulse Ox O2 Delivery O2 Flow Rate FiO2 06/26/24 09:00 97.4 71 17 143/92 (109) 98 97.4 06/26/24 08:00 Room Air* 0 21 Intake/Output Intake and Output 06/26/24 07:00 Intake Total 0 ml Balance 0 ml Intake Oral 0 ml # Voids 3 Medications Current Medications Medications Dose Ordered Sig/Sean Route Start Time Stop Time Status Last Admin Dose Admin Sodium Chloride 1,000 ml @ 70 mls/hr [id number] IV 06/25/24 12:45 06/25/24 13:30 70 MLS/HR Acetaminophen/ Hydrocodone Bitart 1 tab Q4HP PRN PO 06/25/24 12:45 06/26/24 09:10 1 TAB Ondansetron HCl 4 mg Q4HP PRN IV 06/25/24 12:45 Acetaminophen 650 mg Q6HP PRN PO 06/25/24 12:45 Morphine Sulfate 2 mg Q4HPRN PRN IV 06/25/24 12:45 Duloxetine HCl 30 mg BID PO 06/25/24 22:00 06/26/24 09:10 30 MG Levetiracetam 500 mg BID PO 06/25/24 22:00 06/26/24 09:11 500 MG Gabapentin 800 mg BID PO 06/25/24 22:00 06/25/24 22:19 800 MG Pantoprazole Sodium 40 mg BID IV 06/25/24 13:15 06/26/24 09:12 40 MG Lorazepam 0.25 mg Q6HP PRN IV 06/25/24 22:15 Laboratory Results Laboratory Tests 06/26/24 05:06 Chemistry Test 06/26/24 05:06 Albumin 4.3 g/dL (3.2-4.8) Calcium Level 9.6 mg/dL (8.7-10.4) Total Protein 7.0 g/dL (5.7-8.2) LFT Test 06/26/24 05:06 Alanine Aminotransferase (ALT) 19 U/L (7-40) Alkaline Phosphatase 68 U/L (46-116) Aspartate Amino Transferase (AST) 20 U/L (13-40) Total Bilirubin 0.8 mg/dL (0.2-1.0) Urinalysis Test 06/25/24 09:37 Urine Color Yellow (Yellow) Urine Clarity Clear (Clear) Urine pH 5.5 (5.0-9.0) Urine Specific [place] 1.023 (1.001-1.035) Urine Protein Trace (Negative) H Urine Ketones Negative (Negative) Urine Blood Negative /uL (Negative) Urine Nitrite Negative (Negative) Urine Bilirubin Negative (Negative) Urine Urobilinogen Normal mg/dL (Negative) Urine Leukocyte Esterase Negative /uL (Negative) Urine RBC 1 /hpf (0 - 4) Urine Microscopic WBC 2 /HPF (0-5) Urine Squamous Epithelial Cells Few /hpf (<5) Urine Bacteria None seen /hpf (None Seen) Urine Mucus Few (None Seen) Urine Glucose Normal mg/dL (Normal) Labs and/or images reviewed: Labs reviewed by me, Image(s) reviewed by me Assessment/Plan Assessment/Plan Rectal bleeding 7.7 x 4.3 large ascending colon mass consistent with neoplasm consult for Dr. Loco, GI consult by Dr. Carla David appreciated, surgical consult by Dr. Nancy David appreciated. Surgeon planning for surgery Uterine mass Peptic ulcer disease History of epilepsy History of left nephrectomy Plan discussed with: Patient Date of Service: Jun 26, 2024 Billing Provider: ADA WADE MD Common Visit Codes: [id number] INP/OBS CARE(HIGH) ADA WADE MD Jun 26, 2024 11:52
[2024-06-26] MEDS: D5W/SOD CHL 0.45% 1,000 ML IV SCH (12:39)
--- NOTE | 2024-06-26 13:54 | DVHINCON2 ---
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 Family History: Diabetes mellitus G8 FATHER, Onset:40's - 50 Hypertension G8 MOTHER, Onset:40s - 50 G8 FATHER, Onset:40 - Allergies: Coded Allergies: NO KNOWN ALLERGIES (Unverified , 06/25/24) Home Meds Reported Medications Montelukast Sodium (Singulair) 10 Mg Tab, 10 MG PO DAILY for Asthma for 90 Days, #90 TAB 06/25/24 Levetiracetam (Levetiracetam) 500 Mg Tab, 1 TAB PO BID 06/25/24 Gabapentin (Gabapentin) 800 Mg Tab, 1 TAB PO TID 06/25/24 Duloxetine HCl (Duloxetine HCl) 30 Mg Cap, 1 CAP PO BID 06/25/24 Current Medications Current Medications Medications (Trade) Dose Ordered Sig/Sean Route PRN Reason Start Time Stop Time Status Last Admin Duloxetine HCl (Cymbalta Capsule) 30 mg BID PO 06/25/24 22:00 06/26/24 09:10 Levetiracetam (Keppra Tablet) 500 mg BID PO 06/25/24 22:00 06/26/24 09:11 Gabapentin (Neurontin Capsule) 800 mg BID PO 06/25/24 22:00 06/25/24 22:19 Lorazepam (Ativan Inj) 0.25 mg Q6HP PRN IV ANXIETY 06/25/24 22:15 Dextrose/Sodium Chloride 1,000 ml @ 150 mls/hr Q6H40M IV 06/26/24 12:30 06/26/24 12:39 Review of Systems Constitutional: no fever, chill, weight loss HEENT: no eye pain, no hearing loss, no oral lesion, no scleral icterus Heart: no chest pain, no chest pressure Lung: no cough, no dyspnea with exertion Abdomen: see HPI : no pain with urination, normal appearing urine Musculoskeletal: no joint pain, no muscle pain Neurological: no seizure, no loss of sensation, no weakness in extremities Pysch: no depression, no anxiety Derm: no rash, no jaundice Vital Signs Vital Signs Date Time Temp Pulse Resp B/P (MAP) Pulse Ox O2 Delivery O2 Flow Rate FiO2 06/26/24 09:00 97.4 71 17 143/92 (109) 98 97.4 06/26/24 08:00 Room Air* 0 21 Physical Exam SKIN: [PALE HEENT: NL NECK: [NL CARDIAC: RRR PULMONARY: CTA ABDOMEN: SOFT,NT PELVIC- NO VAG BLEEDING,CX GROSSLY NL ,UTERUS 8WKS SIZZE,NT ,NO ADENXAL TENDERNESS Labs/Diagnostic Data Labs Test 06/26/24 05:06 06/25/24 09:45 06/25/24 09:37 Range/Units White Blood Count 9.4 4.4-10.8 10^3/uL Red Blood Count 4.24 4.0-5.20 10^6/uL Hemoglobin 13.4 12.2-16.2 g/dL Hematocrit 38.5 # 36.0-46.0 % Mean Corpuscular Volume 90.8 80.0-100.0 fL Mean Corpuscular Hemoglobin 31.6 28.0-32.0 pg Mean Corpuscular Hemoglobin Concent 34.8 32.0-36.0 g/dL Red Cell Distribution Width 13.4 11.8-14.3 % Platelet Count 201 140-450 10^3/uL Mean Platelet Volume 9.7 6.9-10.8 fL Neutrophils (%) (Auto) 69.7 37.0-80.0 % Lymphocytes (%) (Auto) 21.1 10.0-50.0 % Monocytes (%) (Auto) 6.1 0.0-12.0 % Eosinophils (%) (Auto) 2.6 0.0-7.0 % Basophils (%) (Auto) 0.5 0.0-2.0 % Neutrophils # (Auto) 6.6 1.6-8.6 10 ^3/uL Lymphocytes # (Auto) 2.0 0.4-5.4 10 ^3/uL Monocytes # (Auto) 0.6 0-1.3 10 ^3/uL Eosinophils # (Auto) 0.2 0-0.8 10 ^3/uL Basophils # (Auto) 0 0-0.2 10 ^3/uL Nucleated Red Blood Cells 0.1 % Sodium Level 140 # 136-145 mmol/L Potassium Level 4.0 3.5-5.1 mmol/L Chloride Level 108 H 98-107 mmol/L Carbon Dioxide Level 23 20-31 mmol/L Anion Gap 9 5-15 Blood Urea Nitrogen 11 9-23 mg/dL Creatinine 0.61 0.550-1.02 mg/dL Glomerular Filtration Rate Calc 97 >90 mL/min BUN/Creatinine Ratio 18.0 10.0-20.0 Serum Glucose 96 74-106 mg/dL Calcium Level 9.6 8.7-10.4 mg/dL Total Bilirubin 0.8 0.2-1.0 mg/dL Aspartate Amino Transferase (AST) 20 13-40 U/L Alanine Aminotransferase (ALT) 19 7-40 U/L Alkaline Phosphatase 68 46-116 U/L Total Protein 7.0 5.7-8.2 g/dL Albumin 4.3 3.2-4.8 g/dL Prothrombin Time 10.3 9.3-11.8 sec Prothrombin Time INR 0.97 0.9-1.15 Activated Partial Thromboplast Time 25.3 24.5-34.5 SEC Magnesium Level 1.8 1.6-2.6 mg/dL Lipase 56 H 12-53 U/L Urine Color Yellow Yellow Urine Clarity Clear Clear Urine pH 5.5 5.0-9.0 Urine Specific [place] 1.023 1.001-1.035 Urine Protein Trace H Negative Urine Ketones Negative Negative Urine Blood Negative Negative /uL Urine Nitrite Negative Negative Urine Bilirubin Negative Negative Urine Urobilinogen Normal Negative mg/dL Urine Leukocyte Esterase Negative Negative /uL Urine RBC 1 0 - 4 /hpf Urine Microscopic WBC 2 0-5 /HPF Urine Squamous Epithelial Cells Few <5 /hpf Urine Bacteria None seen None Seen /hpf Urine Mucus Few None Seen Urine Glucose Normal Normal mg/dL Primary Diagnosis GI BLEED UTERINE MASS SUSPECT FIBROID UTERUS POSTMENOPAUSL /ATROPHIC VAGINITIS 2' Diagnosis/Comorbidities ARTHRITIS,COPD Plan PELVIC US NEEDS TO FU OUTPT FOR PAP Plan discussed with: Patient Visit Coding OBGYN Date of Service: Jun 26, 2024 Billing Provider: MARILIN SNIDER DO 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
[2024-06-26] MEDS: ONDANSETRON HCL 4 MG/2 ML VIAL IV PRN (14:24)
--- NOTE | 2024-06-26 14:47 | DVHPN2 ---
Progress Note - Dictate Date Seen: Jun 26, 2024 Medical Necessity Reason Pt with a Central, PICC or Fol: No Subjective Patient is complaining of nausea She appears to have underlying anxiety she has not had any prior colonoscopy Patient is moving her bowels vital signs Vital Sign Date Time Temp Pulse Resp B/P (MAP) Pulse Ox O2 Delivery O2 Flow Rate FiO2 06/26/24 13:00 97.7 81 17 132/88 (103) 97 97.7 06/26/24 08:00 Room Air* 0 21 Total Intake and Output 06/25/24 06/25/24 06/26/24 15:00 23:00 07:00 Intake Total 0 ml Balance 0 ml medications Current Medications Medications Dose Ordered Sig/Sean Route Start Time Stop Time Status Last Admin Dose Admin Acetaminophen/ Hydrocodone Bitart 1 tab Q4HP PRN PO 06/25/24 12:45 06/26/24 09:10 1 TAB Ondansetron HCl 4 mg Q4HP PRN IV 06/25/24 12:45 06/26/24 14:24 4 MG Acetaminophen 650 mg Q6HP PRN PO 06/25/24 12:45 Morphine Sulfate 2 mg Q4HPRN PRN IV 06/25/24 12:45 Duloxetine HCl 30 mg BID PO 06/25/24 22:00 06/26/24 09:10 30 MG Levetiracetam 500 mg BID PO 06/25/24 22:00 06/26/24 09:11 500 MG Gabapentin 800 mg BID PO 06/25/24 22:00 06/25/24 22:19 800 MG Pantoprazole Sodium 40 mg BID IV 06/25/24 13:15 06/26/24 09:12 40 MG Lorazepam 0.25 mg Q6HP PRN IV 06/25/24 22:15 Dextrose/Sodium Chloride 1,000 ml @ 150 mls/hr Q6H40M IV 06/26/24 12:30 06/26/24 12:39 150 MLS/HR objective General Appearance: Alert, Oriented X3, Cooperative, No acute distress HEENT: Atraumatic, PERRLA, EOMI, Mucous membr. moist/pink Respiratory: Normal air movement Cardiovascular: Normal S1, Normal S2, No murmurs Abdominal: Soft Extremities: No clubbing, No cyanosis, No edema, Normal pulses, No tenderness/swelling Skin: No significant lesion Neuro: Normal speech, Normal tone, Sensation intact Psych/Mental Status: Mental status NL laboratory and microbiology Laboratory Tests 06/26/24 05:06 Test 06/26/24 05:06 Range/Units Serum Glucose 96 74-106 mg/dL Problems(with codes): (1) Uterine mass (2) Colonic neoplasm (3) Rectal bleeding (4) COPD (chronic obstructive pulmonary disease) (5) Anxiety (6) Nausea (7) History of nephrectomy Prognosis Plan Zofran 4 mg IV Q 4 hours as needed for nausea Protonix 40 mg IV daily Clear liquid diet If the patient is able to tolerate a clear liquid diet then I will give her a bowel prep and then subsequently scheduled for a colonoscopy in 1-2 days Monitor labs and check CEA level awaiting oncology consult Plan discussed with: Patient, Other (Nurse) JAKOB STRANGE MD Jun 26, 2024 14:47
--- NOTE | 2024-06-26 15:00 | DVH ---
INDICATION: R/O Uterine fibroids TECHNIQUE: Multiple real-time grayscale transabdominal sonographic images along with color and duplex Doppler of the uterus and ovaries were obtained. COMPARISON: None FINDINGS: The uterus measures 11.6 x 6.7 x 5.8 cm. cm. The endometrial stripe measures not visualized . cm. There is a heterogeneous intramural mass measuring 4.5 3.7 x 3.8 cm suggesting a fibroid. The right ovary nonvisualized. The left ovary nonvisualized IMPRESSION: 1. Uterus appears enlarged and contains a heterogeneous hypoechoic fibroid in the body of the uterus. 2. Right and left ovaries not visible. HS:Y
--- NOTE | 2024-06-26 19:55 | DVHPN2 ---
Progress Note Date Seen: Jun 26, 2024 Medical Necessity Reason Pt with a Central, PICC or Fol: No Objective vital signs Vital Sign Date Time Temp Pulse Resp B/P (MAP) Pulse Ox O2 Delivery O2 Flow Rate FiO2 06/26/24 17:00 97.5 78 17 139/77 (97) 96 97.5 06/26/24 08:00 Room Air* 0 21 Total Intake and Output 06/25/24 06/25/24 06/26/24 15:00 23:00 07:00 Intake Total 0 ml Balance 0 ml medications Current Medications Medications Dose Ordered Sig/Sean Route Start Time Stop Time Status Last Admin Dose Admin Acetaminophen/ Hydrocodone Bitart 1 tab Q4HP PRN PO 06/25/24 12:45 06/26/24 09:10 1 TAB Ondansetron HCl 4 mg Q4HP PRN IV 06/25/24 12:45 06/26/24 14:24 4 MG Acetaminophen 650 mg Q6HP PRN PO 06/25/24 12:45 Morphine Sulfate 2 mg Q4HPRN PRN IV 06/25/24 12:45 Duloxetine HCl 30 mg BID PO 06/25/24 22:00 06/26/24 09:10 30 MG Levetiracetam 500 mg BID PO 06/25/24 22:00 06/26/24 09:11 500 MG Pantoprazole Sodium 40 mg BID IV 06/25/24 13:15 06/26/24 09:12 40 MG Lorazepam 0.25 mg Q6HP PRN IV 06/25/24 22:15 Dextrose/Sodium Chloride 1,000 ml @ 150 mls/hr Q6H40M IV 06/26/24 12:30 06/26/24 12:39 150 MLS/HR Gabapentin 300 mg TID PO 06/26/24 22:00 laboratory and microbiology Laboratory Tests 06/26/24 05:06 Test 06/26/24 05:06 Range/Units Serum Glucose 96 74-106 mg/dL Problem List/Assessment/Plan Problem List/Assessment/Plan AFEBRILE VSS ABD SOFT BM + ONGOING GI AND ONCOLOGY EVAL CONSIDER SURGERY BASED ON ONGOING EVAL Plan discussed with: Other VILMA STRANGE MD Jun 26, 2024 19:55
[2024-06-26] MEDS: GABAPENTIN 300 MG CAP PO SCH (21:23)
[2024-06-27 05:00] VITALS: BP 152/88; PULSE 67; RESP 17; TEMP 98.1; O2SAT 96
[2024-06-27 09:00] VITALS: BP 146/91; PULSE 70; RESP 16; TEMP 98.6; O2SAT 94
[2024-06-27 13:00] VITALS: BP 132/89; PULSE 83; RESP 15; TEMP 98.2; O2SAT 93
--- NOTE | 2024-06-27 14:54 | DVHPN2 ---
Subjective Continues to report having bloody stools. Reviewed: Care Plan, H&P, Labs, Medications, Previous Orders, Radiology Changes from previous H/P or p: No Changes General: Per HPI Gastrointestinal: Abdominal Pain, Diarrhea, Hematochezia Objective Vitals Vital Signs Date Time Temp Pulse Resp B/P (MAP) Pulse Ox O2 Delivery O2 Flow Rate FiO2 06/27/24 13:00 98.2 83 15 132/89 (103) 93 98.2 06/27/24 08:00 Room Air* 0 21 Intake/Output Intake and Output 06/27/24 07:00 Intake Total 1450 ml Balance 1450 ml Intake Oral 450 ml IV Total 1000 ml # Voids 6 # Bowel Movements 2 General Appearance: Alert, Oriented X3, Cooperative, No acute distress HEENT: Atraumatic, PERRLA Lungs: Clear to auscultation, Normal air movement Cardiovascular: Normal S1, Normal S2 Abdomen: Normal bowel sounds, Soft, No tenderness, No hepatospenomegaly, No masses Genitourinary: No Apparent Abnormalities Musculoskeletal: Normal sensory function, Normal motor function Skin: Dry, Intact Psych/Mental Status: Mental status NL, Mood NL Medications Current Medications Medications Dose Ordered Sig/Sean Route Start Time Stop Time Status Last Admin Dose Admin Acetaminophen/ Hydrocodone Bitart 1 tab Q4HP PRN PO 06/25/24 12:45 06/27/24 10:16 1 TAB Ondansetron HCl 4 mg Q4HP PRN IV 06/25/24 12:45 06/26/24 14:24 4 MG Acetaminophen 650 mg Q6HP PRN PO 06/25/24 12:45 Morphine Sulfate 2 mg Q4HPRN PRN IV 06/25/24 12:45 Duloxetine HCl 30 mg BID PO 06/25/24 22:00 06/27/24 10:12 30 MG Levetiracetam 500 mg BID PO 06/25/24 22:00 06/27/24 10:12 500 MG Pantoprazole Sodium 40 mg BID IV 06/25/24 13:15 06/27/24 10:11 40 MG Lorazepam 0.25 mg Q6HP PRN IV 06/25/24 22:15 Dextrose/Sodium Chloride 1,000 ml @ 150 mls/hr Q6H40M IV 06/26/24 12:30 06/27/24 10:14 150 MLS/HR Gabapentin 300 mg TID PO 06/26/24 22:00 06/27/24 13:47 300 MG Laboratory Results Laboratory Tests 06/26/24 05:06 Urinalysis Test 06/25/24 09:37 Urine Color Yellow (Yellow) Urine Clarity Clear (Clear) Urine pH 5.5 (5.0-9.0) Urine Specific [place] 1.023 (1.001-1.035) Urine Protein Trace (Negative) H Urine Ketones Negative (Negative) Urine Blood Negative /uL (Negative) Urine Nitrite Negative (Negative) Urine Bilirubin Negative (Negative) Urine Urobilinogen Normal mg/dL (Negative) Urine Leukocyte Esterase Negative /uL (Negative) Urine RBC 1 /hpf (0 - 4) Urine Microscopic WBC 2 /HPF (0-5) Urine Squamous Epithelial Cells Few /hpf (<5) Urine Bacteria None seen /hpf (None Seen) Urine Mucus Few (None Seen) Urine Glucose Normal mg/dL (Normal) Labs and/or images reviewed: Labs reviewed by me, Image(s) reviewed by me Assessment/Plan Assessment/Plan Impression: -ascending colon mass -cachexia -peptic ulcer disease -history of nephrectomy -epilepsy -uterine fibroids Plan: -GI consultation: Plans for colonoscopy -continue clear liquid diet -PPI -pain management -surgical consultation -CEA: Within normal limits -check CA 125 Total time spent with patient discussing and formulating plan of care: 35 minutes. This medical document was created using an electronic medical record system with [employer] dictation system. Although this document has been carefully reviewed, there may still be some phonetic and typographical errors. These areas are purely typographical due to imperfections of the software programs, and do not reflect any compromise in the patient's medical care. Plan discussed with: Patient, Other (RN) My Orders Orders - BOBO JONES NP Procedure Category Date Status Time Ca 125 (Serial) LAB 06/27/24 Logged 12:46 Date of Service: Jun 27, 2024 Billing Provider: BOBO JONES NP Common Visit Codes: [id number] INP/OBS CARE(HIGH) BOBO JONES NP Jun 27, 2024 14:54
[2024-06-27 17:00] VITALS: BP 133/83; PULSE 79; RESP 16; TEMP 98.2; O2SAT 95
[2024-06-27 20:00] VITALS: RESP 18
[2024-06-27 21:00] VITALS: BP 145/87; PULSE 75; RESP 20; TEMP 97.8; O2SAT 99
--- NOTE | 2024-06-27 21:49 | DVHPN2 ---
Progress Note - Dictate Date Seen: Jun 27, 2024 Medical Necessity Reason Pt with a Central, PICC or Fol: No Subjective No new complaints Patient is moving her bowels CEA level is normal vital signs Vital Sign Date Time Temp Pulse Resp B/P (MAP) Pulse Ox O2 Delivery O2 Flow Rate FiO2 06/27/24 21:00 97.8 75 20 145/87 (106) 99 97.8 06/27/24 08:00 Room Air* 0 21 Total Intake and Output 06/26/24 06/26/24 06/27/24 15:00 23:00 07:00 Intake Total 1000 ml 50 ml 400 ml Balance 1000 ml 50 ml 400 ml medications Current Medications Medications Dose Ordered Sig/Sean Route Start Time Stop Time Status Last Admin Dose Admin Acetaminophen/ Hydrocodone Bitart 1 tab Q4HP PRN PO 06/25/24 12:45 06/27/24 19:37 1 TAB Ondansetron HCl 4 mg Q4HP PRN IV 06/25/24 12:45 06/26/24 14:24 4 MG Acetaminophen 650 mg Q6HP PRN PO 06/25/24 12:45 Morphine Sulfate 2 mg Q4HPRN PRN IV 06/25/24 12:45 Duloxetine HCl 30 mg BID PO 06/25/24 22:00 06/27/24 10:12 30 MG Levetiracetam 500 mg BID PO 06/25/24 22:00 06/27/24 10:12 500 MG Pantoprazole Sodium 40 mg BID IV 06/25/24 13:15 06/27/24 10:11 40 MG Lorazepam 0.25 mg Q6HP PRN IV 06/25/24 22:15 Dextrose/Sodium Chloride 1,000 ml @ 150 mls/hr Q6H40M IV 06/26/24 12:30 06/27/24 15:20 150 MLS/HR Gabapentin 300 mg TID PO 06/26/24 22:00 06/27/24 13:47 300 MG objective General Appearance: Alert, Oriented X3, Cooperative, No acute distress HEENT: Atraumatic, PERRLA, EOMI, Mucous membr. moist/pink Respiratory: Normal air movement Cardiovascular: Normal S1, Normal S2, No murmurs Abdominal: Soft Extremities: No clubbing, No cyanosis, No edema, Normal pulses, No tenderness/swelling Skin: No significant lesion Neuro: Normal speech, Normal tone, Sensation intact Psych/Mental Status: Mental status NL laboratory and microbiology Laboratory Tests 06/26/24 05:06 Test 06/26/24 05:06 Range/Units Serum Glucose 96 74-106 mg/dL Problems(with codes): (1) Nausea (2) Anxiety (3) Uterine mass (4) Colonic neoplasm (5) Rectal bleeding Prognosis Plan I will start the bowel prep regimen tonight If the patient is able to get cleaned out by tomorrow I will schedule colonoscopy on 06/28/2024 afternoon If the patient continues to drink more bowel prep then I will scheduled for 06/29/2024 I will follow up patient with you Dietary Evaluation Review Comments: Supplement with Ensure Clear TID when on clear liquid diet. Supplement with Ensure high proterin TID when pt can have a full liquid diet or texture as tolerated regular diet.. Expected Outcomes/Goals: gradual wt gain. avoid wt loss Plan discussed with: Patient JAKOB STRANGE MD Jun 27, 2024 21:49
[2024-06-27] MEDS: GOLYTELY 4L KIT PO ONE (22:49)
[2024-06-28 05:00] VITALS: BP 171/92; PULSE 70; RESP 18; TEMP 97.6; O2SAT 97
[2024-06-28 05:47] LABS: Basophils # (auto) 0 10 ^3/uL (0-0.2); Basophils % (auto) 0.4 % (0.0-2.0); Eosinophils # (auto) 0.3 10 ^3/uL (0-0.8); Eosinophils % (auto) 2.6 % (0.0-7.0); Hematocrit 41.6 % (36.0-46.0); Hemoglobin 14.1 g/dL (12.2-16.2); Lymphocytes # (auto) 2.2 10 ^3/uL (0.4-5.4); Mean Corpuscular Hemoglobin 30.8 pg (28.0-32.0); Mean Corpuscular Hgb Conc. 33.9 g/dL (32.0-36.0); Mean Corpuscular Volume 90.8 fL (80.0-100.0); Monocytes # (auto) 0.7 10 ^3/uL (0-1.3); Monocytes % (auto) 7.5 % (0.0-12.0); Neutrophils # (auto) 6.7 10 ^3/uL (1.6-8.6); Neutrophils % (auto) 67.5 % (37.0-80.0); Nucleated Red Blood Cells % 0.1 %; Platelet Count (auto) 218 10^3/uL (140-450); Red Blood Cells 4.58 10^6/uL (4.0-5.20); Red Cell Distribution Width 13.2 % (11.8-14.3); White Blood Cell 9.9 10^3/uL (4.4-10.8)
[2024-06-28 05:57] LABS: INR 1.03 (0.9-1.15); Partial Thromboplastin Time 25.6 SEC (24.5-34.5); Prothrombin Time 10.9 sec (9.3-11.8)
[2024-06-28] MEDS: GOLYTELY 4L KIT PO ONE (06:00)
[2024-06-28 06:01] LABS: Alanine Aminotransferase 19 U/L (7-40); Albumin 4.4 g/dL (3.2-4.8); Alkaline Phosphatase 74 U/L (46-116); Anion Gap 5 (5-15); Aspartate Aminotransferase 19 U/L (13-40); BUN/Creatinine Ratio 7.1 (10.0-20.0); Blood Urea Nitrogen 5 mg/dL (9-23); Calcium 9.5 mg/dL (8.7-10.4); Carbon Dioxide 29 mmol/L (20-31); Chloride 105 mmol/L (98-107); Glucose 153 mg/dL (74-106); Potassium 3.8 mmol/L (3.5-5.1); Sodium 139 mmol/L (136-145); Total Protein 7.1 g/dL (5.7-8.2)
[2024-06-28 06:02] LABS: Bilirubin, Total 0.8 mg/dL (0.2-1.0)
[2024-06-28] MEDS: MAGNESIUM CITRATE SOLUTION 300 ML BTL PO ONE ×2 (06:43→16:51)
--- NOTE | 2024-06-28 07:58 | ECG ---
[facility] Test Date: 2024-06-28 Test Time: 04:31:26 Pat Name: DAMIAN EDEN Department: Respiratoy Room: 0217 B Gender: F Unitizer: ariadne : [id number] Requested By: BOBO JONES Order Number: [id number] Reading MD: Lon Kurtz Measurements Intervals [place] Rate: 68 P: 67 MA: 141 QRS: 12 QRSD: 90 T: 38 QT: 429 QTc: 457 Interpretive Statements Sinus rhythm Consider left ventricular hypertrophy Anterior ST elevation, probably due to LVH Electronically Signed On 06-29-2024 20:59:16 PDT by oLn Kurtz Please click the below link to view image of tracing.
[2024-06-28] MEDS: LORazepam 2MG/ML-1ML VIAL IV PRN (08:11)
[2024-06-28 09:00] VITALS: BP 204/98; PULSE 65; RESP 20; TEMP 97.8; O2SAT 96
--- NOTE | 2024-06-28 11:03 | DVHPN2 ---
Subjective Denies any symptoms. Reviewed: Care Plan, H&P, Labs, Medications, Previous Orders, Radiology Changes from previous H/P or p: Changes General: Per HPI Gastrointestinal: Abdominal Pain, Diarrhea, Hematochezia Objective Vitals Vital Signs Date Time Temp Pulse Resp B/P (MAP) Pulse Ox O2 Delivery O2 Flow Rate FiO2 06/28/24 09:00 97.8 65 20 204/98 (133) 96 97.8 06/28/24 08:00 Room Air* 0 21 Intake/Output Intake and Output 06/28/24 07:00 Intake Total 3800 ml Balance 3800 ml Intake Oral 2150 ml IV Total 1650 ml # Voids 7 # Bowel Movements 1 General Appearance: Alert, Oriented X3, Cooperative, No acute distress HEENT: Atraumatic, PERRLA Lungs: Clear to auscultation, Normal air movement Cardiovascular: Normal S1, Normal S2 Abdomen: Normal bowel sounds, Soft, No tenderness, No hepatospenomegaly, No masses Genitourinary: No Apparent Abnormalities Musculoskeletal: Normal sensory function, Normal motor function Skin: Dry, Intact Psych/Mental Status: Mental status NL, Mood NL (Withdrawn) Medications Current Medications Medications Dose Ordered Sig/Sean Route Start Time Stop Time Status Last Admin Dose Admin Acetaminophen/ Hydrocodone Bitart 1 tab Q4HP PRN PO 06/25/24 12:45 06/27/24 19:37 1 TAB Ondansetron HCl 4 mg Q4HP PRN IV 06/25/24 12:45 06/28/24 08:00 4 MG Acetaminophen 650 mg Q6HP PRN PO 06/25/24 12:45 Morphine Sulfate 2 mg Q4HPRN PRN IV 06/25/24 12:45 Duloxetine HCl 30 mg BID PO 06/25/24 22:00 06/28/24 09:40 30 MG Levetiracetam 500 mg BID PO 06/25/24 22:00 06/28/24 09:40 500 MG Pantoprazole Sodium 40 mg BID IV 06/25/24 13:15 06/28/24 09:40 40 MG Lorazepam 0.25 mg Q6HP PRN IV 06/25/24 22:15 06/28/24 08:11 0.25 MG Dextrose/Sodium Chloride 1,000 ml @ 150 mls/hr Q6H40M IV 06/26/24 12:30 06/28/24 06:04 150 MLS/HR Gabapentin 300 mg TID PO 06/26/24 22:00 06/28/24 06:16 300 MG Labetalol HCl 10 mg Q2HPRN PRN IV 06/28/24 08:30 Laboratory Results Laboratory Tests 06/28/24 05:15 Chemistry Test 06/28/24 05:15 Albumin 4.4 g/dL (3.2-4.8) Calcium Level 9.5 mg/dL (8.7-10.4) Total Protein 7.1 g/dL (5.7-8.2) Coagulation Test 06/28/24 05:15 Prothrombin Time 10.9 sec (9.3-11.8) Prothrombin Time INR 1.03 (0.9-1.15) Activated Partial Thromboplast Time 25.6 SEC (24.5-34.5) LFT Test 06/28/24 05:15 Alanine Aminotransferase (ALT) 19 U/L (7-40) Alkaline Phosphatase 74 U/L (46-116) Aspartate Amino Transferase (AST) 19 U/L (13-40) Total Bilirubin 0.8 mg/dL (0.2-1.0) Urinalysis Test 06/25/24 09:37 Urine Color Yellow (Yellow) Urine Clarity Clear (Clear) Urine pH 5.5 (5.0-9.0) Urine Specific [place] 1.023 (1.001-1.035) Urine Protein Trace (Negative) H Urine Ketones Negative (Negative) Urine Blood Negative /uL (Negative) Urine Nitrite Negative (Negative) Urine Bilirubin Negative (Negative) Urine Urobilinogen Normal mg/dL (Negative) Urine Leukocyte Esterase Negative /uL (Negative) Urine RBC 1 /hpf (0 - 4) Urine Microscopic WBC 2 /HPF (0-5) Urine Squamous Epithelial Cells Few /hpf (<5) Urine Bacteria None seen /hpf (None Seen) Urine Mucus Few (None Seen) Urine Glucose Normal mg/dL (Normal) Labs and/or images reviewed: Labs reviewed by me, Image(s) reviewed by me Assessment/Plan Assessment/Plan Impression: -ascending colon mass -cachexia -peptic ulcer disease -history of nephrectomy -epilepsy -uterine fibroids Plan: Events: Discussion made with the patient for the need to few weeks performed bowel prep. Apparently refusing to drink GoLYTELY. -GI consultation: Plans for colonoscopy -NPO until after colonoscopy -PPI -pain management -surgical consultation -CA 125 pending -repeat labs in a.m. Total time spent with patient discussing and formulating plan of care: 35 minutes. This medical document was created using an electronic medical record system with [employer] dictation system. Although this document has been carefully reviewed, there may still be some phonetic and typographical errors. These areas are purely typographical due to imperfections of the software programs, and do not reflect any compromise in the patient's medical care. Plan discussed with: Patient, Other (RN) My Orders Orders - BOBO JONES NP Procedure Category Date Status Time Ca 125 (Serial) LAB 06/27/24 In Process 14:42 Type And Screen BBK 06/28/24 In Process 03:59 Labetalol Hcl PHA 06/28/24 In Process (Labetalol Hcl) 08:30 Antibody BBK 06/28/24 In Process Identification 05:15 Date of Service: Jun 28, 2024 Billing Provider: BOBO JONES NP Common Visit Codes: [id number] INP/OBS CARE(HIGH) BOBO JONES NP Jun 28, 2024 11:03
[2024-06-28 13:00] VITALS: BP 113/88; PULSE 90; RESP 20; TEMP 97.9; O2SAT 99
[2024-06-28 17:00] VITALS: BP 168/92; PULSE 84; RESP 20; TEMP 97.5; O2SAT 98
[2024-06-28] MEDS: LABETALOL HCL 20 MG/4 ML VL IV PRN (18:09)
--- NOTE | 2024-06-28 18:14 | DVHPN2 ---
Progress Note - Dictate Date Seen: Jun 28, 2024 Medical Necessity Reason Pt with a Central, PICC or Fol: No Subjective Patient was not able to drink her GoLYTELY She is moving her bowels and she describes them as watery Patient was able to tolerate Mag citrate CEA level is normal vital signs Vital Sign Date Time Temp Pulse Resp B/P (MAP) Pulse Ox O2 Delivery O2 Flow Rate FiO2 06/28/24 18:09 84 168/92 06/28/24 17:00 97.5 20 98 97.5 06/28/24 08:00 Room Air* 0 21 Total Intake and Output 06/27/24 06/27/24 06/28/24 15:00 23:00 07:00 Intake Total 2200 ml 1600 ml Balance 2200 ml 1600 ml medications Current Medications Medications Dose Ordered Sig/Sean Route Start Time Stop Time Status Last Admin Dose Admin Acetaminophen/ Hydrocodone Bitart 1 tab Q4HP PRN PO 06/25/24 12:45 06/28/24 16:27 1 TAB Ondansetron HCl 4 mg Q4HP PRN IV 06/25/24 12:45 06/28/24 08:00 4 MG Acetaminophen 650 mg Q6HP PRN PO 06/25/24 12:45 Morphine Sulfate 2 mg Q4HPRN PRN IV 06/25/24 12:45 Duloxetine HCl 30 mg BID PO 06/25/24 22:00 06/28/24 09:40 30 MG Levetiracetam 500 mg BID PO 06/25/24 22:00 06/28/24 09:40 500 MG Pantoprazole Sodium 40 mg BID IV 06/25/24 13:15 06/28/24 09:40 40 MG Lorazepam 0.25 mg Q6HP PRN IV 06/25/24 22:15 06/28/24 08:11 0.25 MG Dextrose/Sodium Chloride 1,000 ml @ 150 mls/hr Q6H40M IV 06/26/24 12:30 06/28/24 11:10 150 MLS/HR Gabapentin 300 mg TID PO 06/26/24 22:00 06/28/24 16:26 300 MG Labetalol HCl 10 mg Q2HPRN PRN IV 06/28/24 08:30 06/28/24 18:09 10 MG objective General Appearance: Alert, Oriented X3, Cooperative, No acute distress HEENT: Atraumatic, PERRLA, EOMI, Mucous membr. moist/pink Respiratory: Normal air movement Cardiovascular: Normal S1, Normal S2, No murmurs Abdominal: Soft Extremities: No clubbing, No cyanosis, No edema, Normal pulses, No tenderness/swelling Skin: No significant lesion Neuro: Normal speech, Normal tone, Sensation intact Psych/Mental Status: Mental status NL laboratory and microbiology Laboratory Tests 06/28/24 05:15 Test 06/28/24 05:15 Range/Units Serum Glucose 153 H 74-106 mg/dL Problems(with codes): (1) Nausea (2) Uterine mass (3) Colonic neoplasm (4) Rectal bleeding Prognosis Plan Continue clear liquid diet today Patient will be given extra bottle of magnesium citrate Tap water enema in the morning Scheduled for colonoscopy on 06/29/2024 Dietary Evaluation Review Comments: Supplement with Ensure Clear TID when on clear liquid diet. Supplement with Ensure high proterin TID when pt can have a full liquid diet or texture as tolerated regular diet.. Expected Outcomes/Goals: gradual wt gain. avoid wt loss Plan discussed with: Patient, Other (Nurse Sunny and tito díaz) JAKOB STRANGE MD Jun 28, 2024 18:14
[2024-06-28 20:00] VITALS: PULSE 82; RESP 18; O2SAT 98
[2024-06-28 21:00] VITALS: BP 163/96; PULSE 82; RESP 18; TEMP 98.4; O2SAT 98
[2024-06-29] VITALS (11 sets, daily range): BP systolic 127–153; BP diastolic 73–90; PULSE 75–85; RESP 10–20; TEMP 97.3–98.1; O2SAT 90–100
[2024-06-29] MEDS: MAGNESIUM CITRATE SOLUTION 300 ML BTL PO ONE (05:09)
[2024-06-29 08:07] LABS: Cancer Antigen (CA) 125 8.2 U/mL (0.0-38.1)
--- NOTE | 2024-06-29 10:37 | DVHPN2 ---
Subjective Denies any symptoms. Reviewed: Care Plan, H&P, Labs, Medications, Previous Orders, Radiology Changes from previous H/P or p: No Changes General: Per HPI Gastrointestinal: Abdominal Pain, Diarrhea, Hematochezia Objective Vitals Vital Signs Date Time Temp Pulse Resp B/P (MAP) Pulse Ox O2 Delivery O2 Flow Rate FiO2 06/29/24 09:00 97.7 78 16 135/83 (100) 97 97.7 06/29/24 07:55 Room Air* 0 21 Intake/Output Intake and Output 06/29/24 06:59 Intake Total 1160 ml Balance 1160 ml Intake Oral 560 ml IV Total 600 ml # Voids 7 # Bowel Movements 5 General Appearance: Alert, Oriented X3, Cooperative, No acute distress HEENT: Atraumatic, PERRLA Lungs: Clear to auscultation, Normal air movement Cardiovascular: Normal S1, Normal S2 Abdomen: Normal bowel sounds, Soft, No tenderness, No hepatospenomegaly, No masses Genitourinary: No Apparent Abnormalities Musculoskeletal: Normal sensory function, Normal motor function Skin: Dry, Intact Psych/Mental Status: Mental status NL, Mood NL (Withdrawn) Medications Current Medications Medications Dose Ordered Sig/Sean Route Start Time Stop Time Status Last Admin Dose Admin Acetaminophen/ Hydrocodone Bitart 1 tab Q4HP PRN PO 06/25/24 12:45 06/28/24 16:27 1 TAB Ondansetron HCl 4 mg Q4HP PRN IV 06/25/24 12:45 06/28/24 08:00 4 MG Acetaminophen 650 mg Q6HP PRN PO 06/25/24 12:45 Morphine Sulfate 2 mg Q4HPRN PRN IV 06/25/24 12:45 Duloxetine HCl 30 mg BID PO 06/25/24 22:00 06/28/24 21:51 30 MG Levetiracetam 500 mg BID PO 06/25/24 22:00 06/28/24 21:51 500 MG Pantoprazole Sodium 40 mg BID IV 06/25/24 13:15 06/28/24 21:51 40 MG Lorazepam 0.25 mg Q6HP PRN IV 06/25/24 22:15 06/28/24 08:11 0.25 MG Dextrose/Sodium Chloride 1,000 ml @ 150 mls/hr Q6H40M IV 06/26/24 12:30 06/28/24 11:10 150 MLS/HR Gabapentin 300 mg TID PO 06/26/24 22:00 06/28/24 21:51 300 MG Labetalol HCl 10 mg Q2HPRN PRN IV 06/28/24 08:30 06/28/24 18:09 10 MG Laboratory Results Laboratory Tests 06/28/24 05:15 Urinalysis Test 06/25/24 09:37 Urine Color Yellow (Yellow) Urine Clarity Clear (Clear) Urine pH 5.5 (5.0-9.0) Urine Specific [place] 1.023 (1.001-1.035) Urine Protein Trace (Negative) H Urine Ketones Negative (Negative) Urine Blood Negative /uL (Negative) Urine Nitrite Negative (Negative) Urine Bilirubin Negative (Negative) Urine Urobilinogen Normal mg/dL (Negative) Urine Leukocyte Esterase Negative /uL (Negative) Urine RBC 1 /hpf (0 - 4) Urine Microscopic WBC 2 /HPF (0-5) Urine Squamous Epithelial Cells Few /hpf (<5) Urine Bacteria None seen /hpf (None Seen) Urine Mucus Few (None Seen) Urine Glucose Normal mg/dL (Normal) Labs and/or images reviewed: Labs reviewed by me, Image(s) reviewed by me Assessment/Plan Assessment/Plan Impression: -ascending colon mass -cachexia -peptic ulcer disease -history of nephrectomy -epilepsy -uterine fibroids Plan: Events: No events overnight. Still pending colonoscopy for today -GI consultation: Recommendations reviewed -NPO until after colonoscopy -PPI -pain management -surgical consultation -CA 125 pending -repeat labs in a.m. Total time spent with patient discussing and formulating plan of care: 35 minutes. This medical document was created using an electronic medical record system with [employer] dictation system. Although this document has been carefully reviewed, there may still be some phonetic and typographical errors. These areas are purely typographical due to imperfections of the software programs, and do not reflect any compromise in the patient's medical care. Plan discussed with: Patient, Other (RN) Date of Service: Jun 29, 2024 Billing Provider: BOBO JONES NP Common Visit Codes: [id number] INP/OBS CARE(HIGH) BOBO JONES NP Jun 29, 2024 10:37
[2024-06-29] MEDS: D5W/SOD CHL 0.45% 1,000 ML IV SCH (11:31)
[2024-06-29] MEDS ORDERED: LIDOCAINE 1% INJ PF 5ML AMP ONE (12:56)
[2024-06-29] MEDS ORDERED: PROPOFOL 10 MG/ML 20 ML IV ONE ×2 (12:56→13:44)
--- NOTE | 2024-06-29 13:58 | DVHOP2 ---
Operative Report DATE OF OPERATION: 06/29/24 PROCEDURE: Colonoscopy with biopsy. PREOPERATIVE INDICATION: The patient is a 69 -year-old female undergoing colonoscopy for evaluation of abnormal finding GI tract imaging suspicious for ascending colon cancer in history of diarrhea POSTOPERATIVE DIAGNOSES: 1. Patient had a large mass seen in the proximal ascending colon just beyond the hepatic flexure beyond which the colonoscope could not be advanced. 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 Moderate oozing was noted from biopsy sites and also within the large tumor 2. Moderate sigmoid diverticular disease with mild tortuosity of the colon 3. Trace to 1+ internal hemorrhoids otherwise grossly normal examination up to the site of the ascending colon mass PROCEDURE PERFORMED BY: Jakob David M.D. SCOPE: Olympus videocolonoscope. ASA CLASS: 2. PREOPERATIVE MEDICATIONS: Mac Fortino bailey PROCEDURE IN DETAIL: After obtaining an informed consent, the patient was placed on left lateral decubitus position. She was then sedated with the above medications. A rectal examination was performed that was normal. The colonoscope was then passed through the anus into the rectosigmoid and through the descending, transverse, up to and beyond the hepatic flexure. Patient had a large mass seen in the proximal ascending colon that was mobile. The colonoscope could not be advanced beyond this tumor area. Multiple biopsies were obtained Increase oozing was noted from biopsy sites and also within the tumor mass. The distal margin was marked with Molly ink. The colonoscope was then withdrawn. No other polyps or masses were seen. Patient had mild tortuosity of the colon. In the sigmoid colon there was moderate sigmoid diverticular disease. On retroflexion she had trace to 1+ internal hemorrhoids The patient tolerated the procedure well without difficulty. WITHDRAWAL TIME: Not applicable QUALITY OF THE PREP: [place] Bowel Prep score: Not applicable, visualized portion of the colon was well prepped COMPLICATIONS : None SPECIMENS: Ascending colon mass biopsies DISPOSITION: Transfer back to the floor Stable PLAN: 1. Ice chips and clear liquid diet for now, NPO after midnight 2. Discussed with surgical consult, there is a plan for tentative right hemicolectomy on 06/30/2024 3. Start Clinimix and then start TPN 4. Discussed with surgical consult JAKOB Arroyo MD Jun 29, 2024 13:58
--- NOTE | 2024-06-29 14:10 | DVHPN2 ---
Progress Note Date Seen: Jun 29, 2024 Medical Necessity Reason Pt with a Central, PICC or Fol: No Objective vital signs Vital Sign Date Time Temp Pulse Resp B/P (MAP) Pulse Ox O2 Delivery O2 Flow Rate FiO2 06/29/24 13:50 98.1 85 10 148/76 (100) 100 98.1 06/29/24 13:50 Mask 8.0 06/29/24 07:55 21 Total Intake and Output 06/28/24 06/28/24 06/29/24 15:00 23:00 07:00 Intake Total 1160 ml 0 ml Balance 1160 ml 0 ml medications Current Medications Medications Dose Ordered Sig/Sean Route Start Time Stop Time Status Last Admin Dose Admin Acetaminophen/ Hydrocodone Bitart 1 tab Q4HP PRN PO 06/25/24 12:45 06/28/24 16:27 1 TAB Ondansetron HCl 4 mg Q4HP PRN IV 06/25/24 12:45 06/28/24 08:00 4 MG Acetaminophen 650 mg Q6HP PRN PO 06/25/24 12:45 Morphine Sulfate 2 mg Q4HPRN PRN IV 06/25/24 12:45 Duloxetine HCl 30 mg BID PO 06/25/24 22:00 06/28/24 21:51 30 MG Levetiracetam 500 mg BID PO 06/25/24 22:00 06/29/24 11:26 500 MG Pantoprazole Sodium 40 mg BID IV 06/25/24 13:15 06/29/24 11:25 40 MG Lorazepam 0.25 mg Q6HP PRN IV 06/25/24 22:15 06/28/24 08:11 0.25 MG Gabapentin 300 mg TID PO 06/26/24 22:00 06/28/24 21:51 300 MG Labetalol HCl 10 mg Q2HPRN PRN IV 06/28/24 08:30 06/28/24 18:09 10 MG Dextrose/Sodium Chloride 1,000 ml @ 100 mls/hr Q10H IV 06/29/24 10:30 06/29/24 11:31 100 MLS/HR laboratory and microbiology Laboratory Tests 06/28/24 05:15 Test 06/28/24 05:15 Range/Units Serum Glucose 153 H 74-106 mg/dL Problem List/Assessment/Plan Problem List/Assessment/Plan AFEBRILE VSS ABD SOFT BM + ONGOING GI AND ONCOLOGY EVAL COLONOSCOPY R COLON MASS PROCEED WITH LAP/OPEN R COLON RESECTION POSSIBLE COLOSTOMY AM Plan discussed with: Other Dietary Evaluation Review Comments: Supplement with Ensure Clear TID when on clear liquid diet. Supplement with Ensure high proterin TID when pt can have a full liquid diet or texture as tolerated regular diet.. Expected Outcomes/Goals: gradual wt gain. avoid wt loss VILMA STRANGE MD Jun 29, 2024 14:10
[2024-06-29] MEDS ORDERED: CLINIMIX PER PHARMACY 0 ML IV SCH (16:45)
[2024-06-29] MEDS: NEOMYCIN SULFATE 500 MG TAB PO ONE ×3 (21:23→23:26)
[2024-06-29] MEDS ORDERED: DEXTROSE (50%) 50ML SYRG IV SCH (22:00)
[2024-06-29] MEDS: AMINO ACID INFUSION IN D5W 1,000 ML IV SCH (23:25)
[2024-06-30] VITALS (9 sets, daily range): BP systolic 133–182; BP diastolic 57–97; PULSE 73–89; RESP 16–18; TEMP 97.7–98.8; O2SAT 89–98
[2024-06-30] MEDS: InsuLIN REG 1unit/0.01ml Soln (100units/ml) SC SCH
[2024-06-30] MEDS: ACCU-CHEK COMFORT CURVE STRIP VI SCH
[2024-06-30] MEDS: METOCLOPRAMIDE HCL 5MG/ml INJ 2ml VIAL IV ONE (01:20)
[2024-06-30] MEDS: MORPHINE SULFATE INJ 2 MG/ml SYRG IV PRN (04:27)
[2024-06-30 06:40] LABS: Basophils # (auto) 0 10 ^3/uL (0-0.2); Basophils % (auto) 0.3 % (0.0-2.0); Eosinophils # (auto) 0 10 ^3/uL (0-0.8); Hematocrit 43.9 % (36.0-46.0); Hemoglobin 14.7 g/dL (12.2-16.2); Lymphocytes # (auto) 0.7 10 ^3/uL (0.4-5.4); Lymphocytes % (auto) 4.9 % (10.0-50.0); Mean Corpuscular Hemoglobin 30.4 pg (28.0-32.0); Mean Corpuscular Hgb Conc. 33.5 g/dL (32.0-36.0); Mean Corpuscular Volume 90.5 fL (80.0-100.0); Monocytes # (auto) 0.4 10 ^3/uL (0-1.3); Monocytes % (auto) 2.7 % (0.0-12.0); Neutrophils # (auto) 12.6 10 ^3/uL (1.6-8.6); Neutrophils % (auto) 92.1 % (37.0-80.0); Platelet Count (auto) 226 10^3/uL (140-450); Red Blood Cells 4.85 10^6/uL (4.0-5.20); White Blood Cell 13.7 10^3/uL (4.4-10.8)
[2024-06-30 06:51] LABS: Alanine Aminotransferase 21 U/L (7-40); Albumin 4.8 g/dL (3.2-4.8); Alkaline Phosphatase 89 U/L (46-116); Anion Gap 8 (5-15); Aspartate Aminotransferase 22 U/L (13-40); BUN/Creatinine Ratio 12.9 (10.0-20.0); Calcium 9.5 mg/dL (8.7-10.4); Carbon Dioxide 27 mmol/L (20-31); Chloride 99 mmol/L (98-107); Magnesium 1.7 mg/dL (1.6-2.6); Total Protein 7.6 g/dL (5.7-8.2)
[2024-06-30 06:52] LABS: Blood Urea Nitrogen 9 mg/dL (9-23); Glucose 150 mg/dL (74-106); Phosphorus 2.1 mg/dL (2.4-5.1); Potassium 2.8 mmol/L (3.5-5.1); Sodium 134 mmol/L (136-145)
[2024-06-30 06:54] LABS: Bilirubin, Total 0.9 mg/dL (0.2-1.0)
[2024-06-30] MEDS ORDERED: MIDAZOLAM HCL 2MG/2ML 2ml VIAL (1mg/ml) ONE (07:14)
[2024-06-30] MEDS ORDERED: LIDOCAINE HCL 2% TOP JELLY 5ML TOP ONE (07:14)
[2024-06-30] MEDS ORDERED: ONDANSETRON HCL 4 MG/2 ML VIAL ONE (07:14)
[2024-06-30] MEDS ORDERED: LIDOCAINE 1% INJ PF 5ML AMP ONE (07:14)
[2024-06-30] MEDS ORDERED: SODIUM CHLORIDE LOCK 50 ML ONE (07:14)
[2024-06-30] MEDS ORDERED: HYDROmorphone HCL 2 MG/ML VL/or syr ONE (07:14)
[2024-06-30] MEDS ORDERED: ETOMIDATE (2MG/ML) 20ML VIAL IV ONE (07:14)
[2024-06-30] MEDS ORDERED: fentaNYL CITRATE 100 MCG/2 ML VL ONE (07:14)
[2024-06-30] MEDS ORDERED: KETAMINE 50mg/ML 1ml syringe ONE (07:14)
[2024-06-30] MEDS ORDERED: DexAMETHasone SOD PHOS 10MG/1ML VIAL INJ ONE (07:14)
[2024-06-30] MEDS: BUPIVACAINE HCL 50 ML ONE (09:20)
[2024-06-30] MEDS: ROCURONIUM 10MG/ML 10ML VIAL IV ONE (09:20)
[2024-06-30] MEDS: ceFAZolin 2 GM/D5W100ml 100 ML IV ONE (09:20)
[2024-06-30] MEDS: DOXAPRAM HCL 20 MG/ML 20ML VIAL INJ IV ONE (09:20)
[2024-06-30] MEDS: ceFAZolin 1GM VL ONE ×2 (09:20→11:58)
[2024-06-30] MEDS: SUCCINYLCHOLINE CHLORIDE 20 MG/ML 10ML VIAL IV ONE (09:20)
[2024-06-30] MEDS ORDERED: D5W/ SOD CHL 0.9%/KCL 20MEQ 1,000 ML IV SCH (10:00)
--- NOTE | 2024-06-30 10:02 | DVHPN2 ---
Subjective Denies any symptoms. Reviewed: Care Plan, H&P, Labs, Medications, Previous Orders, Radiology Changes from previous H/P or p: No Changes General: Per HPI Gastrointestinal: Abdominal Pain, Diarrhea, Hematochezia Objective Vitals Vital Signs Date Time Temp Pulse Resp B/P (MAP) Pulse Ox O2 Delivery O2 Flow Rate FiO2 06/30/24 04:57 76 19 138/70 06/30/24 04:45 98.0 97 98.0 06/29/24 20:00 Room Air* 0 21 Intake/Output Intake and Output 06/30/24 07:00 Intake Total 1320 ml Output Total 400 ml Balance 920 ml Intake Oral 120 ml IV Total 1200 ml Output Urine Total 400 ml # Voids 9 # Bowel Movements 7 General Appearance: Alert, Oriented X3, Cooperative, No acute distress HEENT: Atraumatic, PERRLA Lungs: Clear to auscultation, Normal air movement Cardiovascular: Normal S1, Normal S2 Abdomen: Normal bowel sounds, Soft, No tenderness, No hepatospenomegaly, No masses Genitourinary: No Apparent Abnormalities Musculoskeletal: Normal sensory function, Normal motor function Skin: Dry, Intact Psych/Mental Status: Mental status NL, Mood NL (Withdrawn) Medications Current Medications Medications Dose Ordered Sig/Sean Route Start Time Stop Time Status Last Admin Dose Admin Ondansetron HCl 4 mg Q4HP PRN IV 06/25/24 12:45 06/30/24 04:15 4 MG Acetaminophen 650 mg Q6HP PRN PO 06/25/24 12:45 Morphine Sulfate 2 mg Q4HPRN PRN IV 06/25/24 12:45 06/30/24 04:27 2 MG Pantoprazole Sodium 40 mg BID IV 06/25/24 13:15 06/29/24 21:33 40 MG Lorazepam 0.25 mg Q6HP PRN IV 06/25/24 22:15 06/28/24 08:11 0.25 MG Gabapentin 300 mg TID PO 06/26/24 22:00 06/29/24 21:33 300 MG Labetalol HCl 10 mg Q2HPRN PRN IV 06/28/24 08:30 06/28/24 18:09 10 MG Amino Acids 0 ml @ 0 mls/hr PER PHARMACY IV 06/29/24 16:45 Amino Acids 1,000 ml @ 41 mls/hr DAILY@2200 IV 06/29/24 22:00 06/29/24 23:25 41 MLS/HR Diagnostic Test (Pha) 1 strip Q6HR 06/30/24 00:00 06/30/24 06:08 1 STRIP Insulin Human Regular FOLLOW SLIDING SCALE Q6HR SC 06/30/24 00:00 06/30/24 06:10 4 UNITS Dextrose 50 ml UD IV 06/29/24 22:00 Potassium Chloride 100 ml @ 50 mls/hr Q1HR IV 06/30/24 09:00 UNV Potassium Chloride/Dextrose/ Sod Cl 1,000 ml @ 100 mls/hr Q10H IV 06/30/24 10:00 UNV Levetiracetam 100 ml @ 400 mls/hr BID IV 06/30/24 10:00 UNV Laboratory Results Laboratory Tests 06/30/24 06:11 Chemistry Test 06/30/24 06:11 Albumin 4.8 g/dL (3.2-4.8) Calcium Level 9.5 mg/dL (8.7-10.4) Magnesium Level 1.7 mg/dL (1.6-2.6) Phosphorus Level 2.1 mg/dL (2.4-5.1) L Total Protein 7.6 g/dL (5.7-8.2) LFT Test 06/30/24 06:11 Alanine Aminotransferase (ALT) 21 U/L (7-40) Alkaline Phosphatase 89 U/L (46-116) Aspartate Amino Transferase (AST) 22 U/L (13-40) Total Bilirubin 0.9 mg/dL (0.2-1.0) Urinalysis Test 06/25/24 09:37 Urine Color Yellow (Yellow) Urine Clarity Clear (Clear) Urine pH 5.5 (5.0-9.0) Urine Specific [place] 1.023 (1.001-1.035) Urine Protein Trace (Negative) H Urine Ketones Negative (Negative) Urine Blood Negative /uL (Negative) Urine Nitrite Negative (Negative) Urine Bilirubin Negative (Negative) Urine Urobilinogen Normal mg/dL (Negative) Urine Leukocyte Esterase Negative /uL (Negative) Urine RBC 1 /hpf (0 - 4) Urine Microscopic WBC 2 /HPF (0-5) Urine Squamous Epithelial Cells Few /hpf (<5) Urine Bacteria None seen /hpf (None Seen) Urine Mucus Few (None Seen) Urine Glucose Normal mg/dL (Normal) Labs and/or images reviewed: Labs reviewed by me, Image(s) reviewed by me Assessment/Plan Assessment/Plan Impression: -ascending colon mass -cachexia -peptic ulcer disease -history of nephrectomy -epilepsy -uterine fibroids -hypokalemia Plan: Events: Patient to OR today for exploratory laparotomy with colectomy. -GI consultation: Recommendations reviewed -continue Clinimix -PPI -pain management -recommendations reviewed -potassium replacement -change IV fluids to D5 NS with 20 mEq potassium chloride -repeat labs in a.m. Total time spent with patient discussing and formulating plan of care: 35 minutes. This medical document was created using an electronic medical record system with [employer] dictation system. Although this document has been carefully reviewed, there may still be some phonetic and typographical errors. These areas are purely typographical due to imperfections of the software programs, and do not reflect any compromise in the patient's medical care. Plan discussed with: Patient, Other (RN) My Orders Orders - BOBO JONES NP Procedure Category Date Status Time D5w/ Sod Chl 0.9%/Kcl PHA 06/30/24 Logged 20meq 10:00 Levetiracetam 500 PHA 06/30/24 Logged Mg/100ml (Levetiraceta 10:00 Comprehensive LAB 07/01/24 Verified Metabolic Panel 04:00 Complete Blood Count LAB 07/01/24 Verified 04:00 Date of Service: Jun 30, 2024 Billing Provider: BOBO JONES NP Common Visit Codes: [id number] INP/OBS CARE(HIGH) BOBO JONES NP Jun 30, 2024 10:02
[2024-06-30] MEDS ORDERED: GLYCOPYRROLATE 0.2 MG/ML 1ML VIAL ONE (10:33)
[2024-06-30] MEDS ORDERED: NEOSTIGMINE 1 MG/ML INJ (10mg/10ML VIAL) ONE (10:33)
--- NOTE | 2024-06-30 11:07 | DVHOP2 ---
Operative Report [id number] R COLON MASS LAP TATO/ OPEN R COLON RESECTION WITH ANASTOMOSIS EBL 25 CC NO DRAINS NO COMPLICATIONS FINDINGS DISCUSSED WITH NURSING STAFF AND FAMILY VILMA STRANGE MD Jun 30, 2024 11:07
[2024-06-30] MEDS: D5W/SOD CHL 0.45% 1,000 ML IV SCH (11:15)
--- NOTE | 2024-06-30 11:22 | DVHOP ---
DATE OF SURGERY: 06/30/2024 PREOPERATIVE DIAGNOSIS: Right colon mass, with a bleed. POSTOPERATIVE DIAGNOSIS: Right colon mass, with a bleed. PROCEDURE: Laparoscopic lysis of adhesions, with open right colon resection, primary anastomosis. SURGEON: Billy David MD RESEARCH CHEMICAL ENGINEER: None. ANESTHESIA: General. BLOOD LOSS: Close to 25 mL. DRAINS: No drains were used. COMPLICATIONS: No complications were encountered. DESCRIPTION OF PROCEDURE: The patient was prepped and draped in the usual sterile fashion in the supine position and a supraumbilical incision was applied, was taken down to the fascia. The Veress needle was introduced and CO2 insufflation was started to a pressure of 15 mmHg. The needle was withdrawn, replaced by the 5 mm trocar and a telescope introduced and adhesions were noted. The bowel was significantly distended as well and some adhesions were taken down, but it was realized that the surgery should be done as an open method. The CO2 insufflation was stopped. The trocar site was withdrawn and an incision was applied in the midline infraumbilically going up to the symphysis pubis to the right of the umbilicus and connecting with the trocar site. The fascia was divided. The abdomen was entered. The CO2 was let out and the trocar was withdrawn and with suitable retraction, the Molly ink carli was noted in the transverse colon and it was divided distal to that using the FITZ stapling device and the mesenteric vessels were taken down using LigaSure device and the right colon was reflected off the paracolic gutter using Harmonic device. The ileocecal junction was identified. Presumably, it was intussuscepted in that location with the appendix also intussuscepted and then a suitable spot was selected in the small bowel close to the ileocecal junction and transected using the FITZ stapling device and the mesenteric vessels were taken down using the LigaSure device. With this being done, the mesenteric vessels also were suture ligated in the main vessel at ileocecal location. The specimen was then delivered out without any problems. The duodenum was kept out of harm's way and a [id number] stapled anastomosis was carried out with proper alignment with the small bowel and the transverse colon, sealing off the final opening with the FITZ stapling device as well. The anastomosis was reinforced with a 3-0 silk sutures at various locations and the mesenteric defect was brought together using Vicryl suture and irrigation was performed. Hemostasis was secured. The bowel was replaced back in its anatomic location. Sponge count, needle count was reported correct and the fascia was brought together using PDS suture in a continuous running fashion. Skin was brought together using a stapling device. Dressing was applied. The patient tolerated the procedure well and was taken back to the recovery room in a stable condition. MD JENAE Meza/YOBANY TID: [id number] RECEIPT: [id number] cc: Singh Larry NP
[2024-06-30] MEDS: POTASSIUM CHL 20MEQ/50ML 50 ML IV ONE (11:58)
[2024-06-30] MEDS: POTASSIUM CHL 20MEQ/50ML 100 ML IV ONE (11:58)
[2024-06-30] MEDS: levETIRAcetam 500 mg/100ml 100 ML IV SCH (12:19)
[2024-06-30] MEDS: POTASSIUM CHL 20MEQ/50ML 50 ML IV SCH (13:15)
[2024-06-30 15:00] LABS: Basophils # (auto) 0 10 ^3/uL (0-0.2); Basophils % (auto) 0.1 % (0.0-2.0); Eosinophils # (auto) 0 10 ^3/uL (0-0.8); Hematocrit 38.6 % (36.0-46.0); Hemoglobin 12.7 g/dL (12.2-16.2); Lymphocytes # (auto) 0.5 10 ^3/uL (0.4-5.4); Lymphocytes % (auto) 3.7 % (10.0-50.0); Mean Corpuscular Hemoglobin 30.1 pg (28.0-32.0); Mean Corpuscular Hgb Conc. 32.8 g/dL (32.0-36.0); Mean Corpuscular Volume 91.5 fL (80.0-100.0); Monocytes # (auto) 0.5 10 ^3/uL (0-1.3); Monocytes % (auto) 3.6 % (0.0-12.0); Neutrophils # (auto) 12.2 10 ^3/uL (1.6-8.6); Neutrophils % (auto) 92.6 % (37.0-80.0); Platelet Count (auto) 193 10^3/uL (140-450); Red Blood Cells 4.22 10^6/uL (4.0-5.20); Red Cell Distribution Width 13.1 % (11.8-14.3); White Blood Cell 13.2 10^3/uL (4.4-10.8)
[2024-06-30 15:17] LABS: Alanine Aminotransferase 23 U/L (7-40); Albumin 3.9 g/dL (3.2-4.8); Alkaline Phosphatase 73 U/L (46-116); Anion Gap 9 (5-15); Aspartate Aminotransferase 27 U/L (13-40); BUN/Creatinine Ratio 11.3 (10.0-20.0); Bilirubin, Total 0.5 mg/dL (0.2-1.0); Carbon Dioxide 23 mmol/L (20-31); Chloride 105 mmol/L (98-107); Potassium 3.5 mmol/L (3.5-5.1); Sodium 137 mmol/L (136-145); Total Protein 6.2 g/dL (5.7-8.2)
[2024-06-30 15:19] LABS: Blood Urea Nitrogen 7 mg/dL (9-23); Calcium 8.6 mg/dL (8.7-10.4); Glucose 200 mg/dL (74-106)
[2024-06-30] MEDS ORDERED: MORPHINE SULF INJ 10 MG/ML 10ML MDV IV ONE (16:20)
--- NOTE | 2024-06-30 17:14 | DVHPN2 ---
Progress Note - Dictate Date Seen: Jun 30, 2024 Medical Necessity Reason Pt with a Central, PICC or Fol: No Subjective Pt S/P open R hemicolectomy today vital signs Vital Sign Date Time Temp Pulse Resp B/P (MAP) Pulse Ox O2 Delivery O2 Flow Rate FiO2 06/30/24 12:50 97.7 79 16 159/74 (102) 94 97.7 06/30/24 11:02 Room Air 98 06/29/24 20:00 0 Total Intake and Output 06/29/24 06/29/24 06/30/24 15:00 23:00 07:00 Intake Total 100 ml 1120 ml 100 ml Output Total 250 ml 150 ml Balance -150 ml 970 ml 100 ml medications Current Medications Medications Dose Ordered Sig/Esan Route Start Time Stop Time Status Last Admin Dose Admin Ondansetron HCl 4 mg Q4HP PRN IV 06/25/24 12:45 06/30/24 04:15 4 MG Acetaminophen 650 mg Q6HP PRN PO 06/25/24 12:45 Morphine Sulfate 2 mg Q4HPRN PRN IV 06/25/24 12:45 06/30/24 04:27 2 MG Pantoprazole Sodium 40 mg BID IV 06/25/24 13:15 06/29/24 21:33 40 MG Lorazepam 0.25 mg Q6HP PRN IV 06/25/24 22:15 06/28/24 08:11 0.25 MG Gabapentin 300 mg TID PO 06/26/24 22:00 06/30/24 13:16 300 MG Labetalol HCl 10 mg Q2HPRN PRN IV 06/28/24 08:30 06/28/24 18:09 10 MG Amino Acids 0 ml @ 0 mls/hr PER PHARMACY IV 06/29/24 16:45 Amino Acids 1,000 ml @ 41 mls/hr DAILY@2200 IV 06/29/24 22:00 06/29/24 23:25 41 MLS/HR Diagnostic Test (Pha) 1 strip Q6HR 06/30/24 00:00 06/30/24 12:18 1 STRIP Insulin Human Regular FOLLOW SLIDING SCALE Q6HR SC 06/30/24 00:00 06/30/24 06:10 4 UNITS Dextrose 50 ml UD IV 06/29/24 22:00 Potassium Chloride 50 ml @ 25 mls/hr Q2H IV 06/30/24 11:15 06/30/24 17:14 06/30/24 15:41 25 MLS/HR Levetiracetam 100 ml @ 400 mls/hr BID IV 06/30/24 10:00 06/30/24 12:19 400 MLS/HR Dextrose/Sodium Chloride 1,000 ml @ 100 mls/hr Q10H IV 06/30/24 11:15 objective General Appearance: Alert, Oriented X3, Cooperative, No acute distress HEENT: Atraumatic, PERRLA, EOMI, Mucous membr. moist/pink Respiratory: Normal air movement Cardiovascular: Normal S1, Normal S2, No murmurs Abdominal: Soft Extremities: No clubbing, No cyanosis, No edema, Normal pulses, No tenderness/swelling Skin: No significant lesion Neuro: Normal speech, Normal tone, Sensation intact Psych/Mental Status: Mental status NL laboratory and microbiology Laboratory Tests 06/30/24 14:10 Test 06/30/24 14:10 Range/Units Serum Glucose 200 H 74-106 mg/dL Problems(with codes): (1) History of nephrectomy (2) Nausea (3) Uterine mass (4) Anxiety (5) Colonic neoplasm (6) Rectal bleeding Prognosis PLAN NPO IVF/IV TPN IV ABX Pain control I will follow Dietary Evaluation Review Comments: Supplement with Ensure Clear TID when on clear liquid diet. Supplement with Ensure high proterin TID when pt can have a full liquid diet or texture as tolerated regular diet.. Expected Outcomes/Goals: gradual wt gain. avoid wt loss Plan discussed with: Patient JAKOB STRANGE MD Jun 30, 2024 17:14
[2024-06-30] MEDS: LIDOCAINE 1% (LOCAL ANESTH.) PF 5ml SDV ID ONE (17:45)
[2024-06-30] MEDS: SODIUM PHOSPHATES 24 MEQ in SODIUM CHL 0.9% 100 ML IV ONE (18:17)
[2024-06-30] MEDS: SODIUM CHLOR 0.9% PF (SALINE LOCK) 10ML VIAL/SYR IV SCH (22:07)
[2024-07-01] VITALS (8 sets, daily range): BP systolic 78–182; BP diastolic 60–128; PULSE 68–93; RESP 16–18; TEMP 97.3–98.4; O2SAT 95–98
[2024-07-01 06:33] LABS: Basophils # (auto) 0.1 10 ^3/uL (0-0.2); Basophils % (auto) 0.6 % (0.0-2.0); Eosinophils # (auto) 0 10 ^3/uL (0-0.8); Hematocrit 33.3 % (36.0-46.0); Hemoglobin 11.3 g/dL (12.2-16.2); Lymphocytes # (auto) 0.8 10 ^3/uL (0.4-5.4); Lymphocytes % (auto) 5.2 % (10.0-50.0); Mean Corpuscular Hemoglobin 30.8 pg (28.0-32.0); Mean Corpuscular Hgb Conc. 33.9 g/dL (32.0-36.0); Mean Corpuscular Volume 90.8 fL (80.0-100.0); Monocytes # (auto) 0.9 10 ^3/uL (0-1.3); Monocytes % (auto) 6.4 % (0.0-12.0); Neutrophils # (auto) 12.6 10 ^3/uL (1.6-8.6); Neutrophils % (auto) 87.8 % (37.0-80.0); Platelet Count (auto) 193 10^3/uL (140-450); Red Blood Cells 3.67 10^6/uL (4.0-5.20); Red Cell Distribution Width 13.2 % (11.8-14.3); White Blood Cell 14.4 10^3/uL (4.4-10.8)
[2024-07-01 06:56] LABS: Alanine Aminotransferase 17 U/L (7-40); Albumin 3.7 g/dL (3.2-4.8); Alkaline Phosphatase 63 U/L (46-116); Anion Gap 8 (5-15); Aspartate Aminotransferase 16 U/L (13-40); BUN/Creatinine Ratio 17.2 (10.0-20.0); Bilirubin, Total 0.5 mg/dL (0.2-1.0); Blood Urea Nitrogen 11 mg/dL (9-23); Calcium 9.2 mg/dL (8.7-10.4); Carbon Dioxide 25 mmol/L (20-31); Chloride 107 mmol/L (98-107); Glucose 144 mg/dL (74-106); Magnesium 1.6 mg/dL (1.6-2.6); Phosphorus 2.9 mg/dL (2.4-5.1); Potassium 3.9 mmol/L (3.5-5.1); Sodium 140 mmol/L (136-145)
[2024-07-01] MEDS: HYDROmorphone HCL 2 MG/ML VL/or syr IV PRN (10:57)
[2024-07-01] MEDS: METOCLOPRAMIDE HCL 5MG/ml INJ 2ml VIAL IV ONE (10:57)
[2024-07-01] MEDS ORDERED: TPN PER PHARMACY 0 ML IV SCH (13:45)
--- NOTE | 2024-07-01 13:45 | DVHPN2 ---
Subjective Denies any symptoms. Reviewed: Care Plan, H&P, Labs, Medications, Previous Orders, Radiology Changes from previous H/P or p: No Changes General: Per HPI Gastrointestinal: Abdominal Pain, Diarrhea, Hematochezia Objective Vitals Vital Signs Date Time Temp Pulse Resp B/P (MAP) Pulse Ox O2 Delivery O2 Flow Rate FiO2 07/01/24 12:45 97.3 68 17 106/60 (75) 98 97.3 07/01/24 08:30 Room Air* 0 21 Intake/Output Intake and Output 07/01/24 07:00 Intake Total 1190 ml Output Total 2650 ml Balance -1460 ml Intake Oral 990 ml IV Total 200 ml Output Urine Total 2650 ml # Bowel Movements 1 General Appearance: Alert, Oriented X3, Cooperative, No acute distress HEENT: Atraumatic, PERRLA Lungs: Clear to auscultation, Normal air movement Cardiovascular: Normal S1, Normal S2 Abdomen: Normal bowel sounds, Soft, No tenderness, No hepatospenomegaly, No masses Genitourinary: No Apparent Abnormalities Musculoskeletal: Normal sensory function, Normal motor function Skin: Dry, Intact Psych/Mental Status: Mental status NL, Mood NL (Withdrawn) Medications Current Medications Medications Dose Ordered Sig/Sean Route Start Time Stop Time Status Last Admin Dose Admin Ondansetron HCl 4 mg Q4HP PRN IV 06/25/24 12:45 07/01/24 08:50 4 MG Acetaminophen 650 mg Q6HP PRN PO 06/25/24 12:45 Morphine Sulfate 2 mg Q4HPRN PRN IV 06/25/24 12:45 07/01/24 08:35 2 MG Pantoprazole Sodium 40 mg BID IV 06/25/24 13:15 07/01/24 08:34 40 MG Lorazepam 0.25 mg Q6HP PRN IV 06/25/24 22:15 06/28/24 08:11 0.25 MG Gabapentin 300 mg TID PO 06/26/24 22:00 07/01/24 05:55 300 MG Labetalol HCl 10 mg Q2HPRN PRN IV 06/28/24 08:30 07/01/24 08:36 10 MG Amino Acids 0 ml @ 0 mls/hr PER PHARMACY IV 06/29/24 16:45 Amino Acids 1,000 ml @ 41 mls/hr DAILY@2200 IV 06/29/24 22:00 06/30/24 22:19 41 MLS/HR Diagnostic Test (Pha) 1 strip Q6HR 06/30/24 00:00 07/01/24 11:46 1 STRIP Insulin Human Regular FOLLOW SLIDING SCALE Q6HR SC 06/30/24 00:00 07/01/24 11:56 8 UNITS Dextrose 50 ml UD IV 06/29/24 22:00 Levetiracetam 100 ml @ 400 mls/hr BID IV 06/30/24 10:00 07/01/24 11:05 400 MLS/HR Dextrose/Sodium Chloride 1,000 ml @ 100 mls/hr Q10H IV 06/30/24 11:15 06/30/24 18:28 100 MLS/HR Sodium Chloride 10 ml QSHIFT@10,22 IV 06/30/24 22:00 07/01/24 08:34 10 ML Hydromorphone HCl 0.5 mg Q4HPRN PRN IV 07/01/24 09:45 07/01/24 10:57 0.5 MG Laboratory Results Laboratory Tests 07/01/24 05:18 Chemistry Test 06/30/24 14:10 07/01/24 05:18 Albumin 3.9 g/dL (3.2-4.8) 3.7 g/dL (3.2-4.8) Calcium Level 8.6 mg/dL (8.7-10.4) L 9.2 mg/dL (8.7-10.4) Total Protein 6.2 g/dL (5.7-8.2) 6.0 g/dL (5.7-8.2) Magnesium Level 1.6 mg/dL (1.6-2.6) Phosphorus Level 2.9 mg/dL (2.4-5.1) LFT Test 06/30/24 14:10 07/01/24 05:18 Alanine Aminotransferase (ALT) 23 U/L (7-40) 17 U/L (7-40) Alkaline Phosphatase 73 U/L (46-116) 63 U/L (46-116) Aspartate Amino Transferase (AST) 27 U/L (13-40) 16 U/L (13-40) Total Bilirubin 0.5 mg/dL (0.2-1.0) 0.5 mg/dL (0.2-1.0) Urinalysis Test 06/25/24 09:37 Urine Color Yellow (Yellow) Urine Clarity Clear (Clear) Urine pH 5.5 (5.0-9.0) Urine Specific [place] 1.023 (1.001-1.035) Urine Protein Trace (Negative) H Urine Ketones Negative (Negative) Urine Blood Negative /uL (Negative) Urine Nitrite Negative (Negative) Urine Bilirubin Negative (Negative) Urine Urobilinogen Normal mg/dL (Negative) Urine Leukocyte Esterase Negative /uL (Negative) Urine RBC 1 /hpf (0 - 4) Urine Microscopic WBC 2 /HPF (0-5) Urine Squamous Epithelial Cells Few /hpf (<5) Urine Bacteria None seen /hpf (None Seen) Urine Mucus Few (None Seen) Urine Glucose Normal mg/dL (Normal) Labs and/or images reviewed: Labs reviewed by me, Image(s) reviewed by me Assessment/Plan Assessment/Plan Impression: -ascending colon mass -cachexia -peptic ulcer disease -history of nephrectomy -epilepsy -uterine fibroids -hypokalemia Plan: Events: Patient postop day one right hemicolectomy. Noted accelerated hypertension. Resolved. -GI consultation: Recommendations reviewed -transitioned from Clinimix to TPN -PPI -pain management -recommendations reviewed -potassium replacement -continue D5 normal saline -repeat labs in a.m. Total time spent with patient discussing and formulating plan of care: 35 minutes. This medical document was created using an electronic medical record system with [employer] dictation system. Although this document has been carefully reviewed, there may still be some phonetic and typographical errors. These areas are purely typographical due to imperfections of the software programs, and do not reflect any compromise in the patient's medical care. Plan discussed with: Patient, Other (RN) My Orders Orders - BOBO JONES DIV[employer] FIELD INSPECTOR Procedure Category Date Status Time Nursing Protocol Picc SAM 06/30/24 In Process 17:42 Change Dressing Prn SAM 06/30/24 In Process 17:42 PICC BD 06/30/24 Transmitted 17:42 Sodium Chloride Lock PHA 06/30/24 In Process (Saline Lock Ns) 22:00 Do Not Use Picc For SAM 06/30/24 In Process Blood Cult 17:42 May Draw Blood From SAM 06/30/24 In Process Picc 17:42 Ok To Use Picc SAM 06/30/24 In Process 17:42 Change Picc Dressing SAM 06/30/24 In Process Q7 Days 17:42 Hydromorphone PHA 07/01/24 In Process Injection (Dilaudid 09:45 Tpn Per Pharmacy [facility] 07/01/24 Verified 13:45 Date of Service: Jul 01, 2024 Billing Provider: BOBO JONES NP Common Visit Codes: [id number] INP/OBS CARE(HIGH) BOBO JONES NP Jul 01, 2024 13:45
--- NOTE | 2024-07-01 16:27 | DVHPN2 ---
Progress Note Date Seen: Jul 01, 2024 Medical Necessity Reason Pt with a Central, PICC or Fol: No Objective vital signs Vital Sign Date Time Temp Pulse Resp B/P (MAP) Pulse Ox O2 Delivery O2 Flow Rate FiO2 07/01/24 12:45 97.3 68 17 106/60 (75) 98 97.3 07/01/24 08:30 Room Air* 0 21 Total Intake and Output 06/30/24 06/30/24 07/01/24 15:00 23:00 07:00 Intake Total 100 ml 1090 ml 0 ml Output Total 1150 ml 1500 ml Balance 100 ml -60 ml -1500 ml medications Current Medications Medications Dose Ordered Sig/Sean Route Start Time Stop Time Status Last Admin Dose Admin Ondansetron HCl 4 mg Q4HP PRN IV 06/25/24 12:45 07/01/24 08:50 4 MG Acetaminophen 650 mg Q6HP PRN PO 06/25/24 12:45 Morphine Sulfate 2 mg Q4HPRN PRN IV 06/25/24 12:45 07/01/24 08:35 2 MG Pantoprazole Sodium 40 mg BID IV 06/25/24 13:15 07/01/24 08:34 40 MG Lorazepam 0.25 mg Q6HP PRN IV 06/25/24 22:15 06/28/24 08:11 0.25 MG Gabapentin 300 mg TID PO 06/26/24 22:00 07/01/24 05:55 300 MG Labetalol HCl 10 mg Q2HPRN PRN IV 06/28/24 08:30 07/01/24 08:36 10 MG Diagnostic Test (Pha) 1 strip Q6HR 06/30/24 00:00 07/01/24 11:46 1 STRIP Insulin Human Regular FOLLOW SLIDING SCALE Q6HR SC 06/30/24 00:00 07/01/24 11:56 8 UNITS Dextrose 50 ml UD IV 06/29/24 22:00 Levetiracetam 100 ml @ 400 mls/hr BID IV 06/30/24 10:00 07/01/24 11:05 400 MLS/HR Dextrose/Sodium Chloride 1,000 ml @ 100 mls/hr Q10H IV 06/30/24 11:15 06/30/24 18:28 100 MLS/HR Sodium Chloride 10 ml QSHIFT@10,22 IV 06/30/24 22:00 07/01/24 08:34 10 ML Hydromorphone HCl 0.5 mg Q4HPRN PRN IV 07/01/24 09:45 07/01/24 10:57 0.5 MG Amino Acids 0 ml @ 0 mls/hr PER PHARMACY IV 07/01/24 13:45 laboratory and microbiology Laboratory Tests 07/01/24 05:18 Test 07/01/24 05:18 Range/Units Serum Glucose 144 H 74-106 mg/dL Problem List/Assessment/Plan Problem List/Assessment/Plan AFEBRILE VSS ABD SOFT BM + S/P R COLON RESECTION WOUND DRESSING IN PLACE NO COMPLICATIONS KEEP NPO CLOSE OBSERVATION Plan discussed with: Patient Dietary Evaluation Review Comments: Supplement with Ensure Clear TID when on clear liquid diet. Supplement with Ensure high proterin TID when pt can have a full liquid diet or texture as tolerated regular diet.. Expected Outcomes/Goals: gradual wt gain. avoid wt loss VILMA STRANGE MD Jul 01, 2024 16:27
--- NOTE | 2024-07-01 16:51 | DVHPN2 ---
Progress Note - Dictate Date Seen: Jul 01, 2024 Medical Necessity Reason Pt with a Central, PICC or Fol: No Subjective POD # 1 Pt S/P open R hemicolectomy One BM reported vital signs Vital Sign Date Time Temp Pulse Resp B/P (MAP) Pulse Ox O2 Delivery O2 Flow Rate FiO2 07/01/24 12:45 97.3 68 17 106/60 (75) 98 97.3 07/01/24 08:30 Room Air* 0 21 Total Intake and Output 06/30/24 06/30/24 07/01/24 15:00 23:00 07:00 Intake Total 100 ml 1090 ml 0 ml Output Total 1150 ml 1500 ml Balance 100 ml -60 ml -1500 ml medications Current Medications Medications Dose Ordered Sig/Sean Route Start Time Stop Time Status Last Admin Dose Admin Ondansetron HCl 4 mg Q4HP PRN IV 06/25/24 12:45 07/01/24 08:50 4 MG Acetaminophen 650 mg Q6HP PRN PO 06/25/24 12:45 Morphine Sulfate 2 mg Q4HPRN PRN IV 06/25/24 12:45 07/01/24 08:35 2 MG Pantoprazole Sodium 40 mg BID IV 06/25/24 13:15 07/01/24 08:34 40 MG Lorazepam 0.25 mg Q6HP PRN IV 06/25/24 22:15 06/28/24 08:11 0.25 MG Gabapentin 300 mg TID PO 06/26/24 22:00 07/01/24 05:55 300 MG Labetalol HCl 10 mg Q2HPRN PRN IV 06/28/24 08:30 07/01/24 08:36 10 MG Diagnostic Test (Pha) 1 strip Q6HR 06/30/24 00:00 07/01/24 11:46 1 STRIP Insulin Human Regular FOLLOW SLIDING SCALE Q6HR SC 06/30/24 00:00 07/01/24 11:56 8 UNITS Dextrose 50 ml UD IV 06/29/24 22:00 Levetiracetam 100 ml @ 400 mls/hr BID IV 06/30/24 10:00 07/01/24 11:05 400 MLS/HR Dextrose/Sodium Chloride 1,000 ml @ 100 mls/hr Q10H IV 06/30/24 11:15 06/30/24 18:28 100 MLS/HR Sodium Chloride 10 ml QSHIFT@10,22 IV 06/30/24 22:00 07/01/24 08:34 10 ML Hydromorphone HCl 0.5 mg Q4HPRN PRN IV 07/01/24 09:45 07/01/24 10:57 0.5 MG Amino Acids 0 ml @ 0 mls/hr PER PHARMACY IV 07/01/24 13:45 objective General Appearance: Alert, Oriented X3, Cooperative, No acute distress HEENT: Atraumatic, PERRLA, EOMI, Mucous membr. moist/pink Respiratory: Normal air movement Cardiovascular: Normal S1, Normal S2, No murmurs Abdominal: Soft Extremities: No clubbing, No cyanosis, No edema, Normal pulses, No tenderness/swelling Skin: No significant lesion Neuro: Normal speech, Normal tone, Sensation intact Psych/Mental Status: Mental status NL laboratory and microbiology Laboratory Tests 07/01/24 05:18 Test 07/01/24 05:18 Range/Units Serum Glucose 144 H 74-106 mg/dL Problems(with codes): (1) Nausea (2) Anxiety (3) Uterine mass (4) Colonic neoplasm (5) Rectal bleeding Prognosis Plan NPO IV fluid hydration IV TPN IV antibiotics Supportive care and wound care Dressing change Dietary Evaluation Review Comments: Supplement with Ensure Clear TID when on clear liquid diet. Supplement with Ensure high proterin TID when pt can have a full liquid diet or texture as tolerated regular diet.. Expected Outcomes/Goals: gradual wt gain. avoid wt loss Plan discussed with: Patient JAKOB STRANGE MD Jul 01, 2024 16:51
[2024-07-01] MEDS: AMINO ACID INFUSION IN D10W 1,000 ML IV ONE (23:03)
[2024-07-02] VITALS (8 sets, daily range): BP systolic 100–163; BP diastolic 58–84; PULSE 43–90; RESP 15–18; TEMP 97.6–98.6; O2SAT 93–98
[2024-07-02 07:22] LABS: Alanine Aminotransferase 14 U/L (7-40); Albumin 3.5 g/dL (3.2-4.8); Alkaline Phosphatase 56 U/L (46-116); Anion Gap 7 (5-15); Aspartate Aminotransferase 13 U/L (13-40); BUN/Creatinine Ratio 17.6 (10.0-20.0); Bilirubin, Total 0.5 mg/dL (0.2-1.0); Blood Urea Nitrogen 12 mg/dL (9-23); Calcium 9.1 mg/dL (8.7-10.4); Carbon Dioxide 28 mmol/L (20-31); Chloride 106 mmol/L (98-107); Sodium 141 mmol/L (136-145); Triglycerides 106 mg/dL (< 150)
[2024-07-02 07:24] LABS: Glucose 127 mg/dL (74-106); Magnesium 1.4 mg/dL (1.6-2.6); Phosphorus 1.9 mg/dL (2.4-5.1); Potassium 3.5 mmol/L (3.5-5.1); Total Protein 5.6 g/dL (5.7-8.2)
--- NOTE | 2024-07-02 09:50 | DVHPN2 ---
Subjective Denies any symptoms. Reviewed: Care Plan, H&P, Labs, Medications, Previous Orders, Radiology Changes from previous H/P or p: No Changes General: Per HPI Gastrointestinal: Abdominal Pain, Diarrhea, Hematochezia Objective Vitals Vital Signs Date Time Temp Pulse Resp B/P (MAP) Pulse Ox O2 Delivery O2 Flow Rate FiO2 07/02/24 08:36 98.6 90 16 163/84 (110) 94 98.6 07/02/24 08:00 Room Air* 0 21 Intake/Output Intake and Output 07/02/24 07:00 Intake Total 892 ml Output Total 2900 ml Balance -2008 ml Intake Oral 0 ml IV Total 892 ml Output Urine Total 2900 ml General Appearance: Alert, Oriented X3, Cooperative, No acute distress HEENT: Atraumatic, PERRLA Lungs: Clear to auscultation, Normal air movement Cardiovascular: Normal S1, Normal S2 Abdomen: Normal bowel sounds, Soft, No tenderness, No hepatospenomegaly, No masses Genitourinary: No Apparent Abnormalities Musculoskeletal: Normal sensory function, Normal motor function Skin: Dry, Intact Psych/Mental Status: Mental status NL, Mood NL (Withdrawn) Medications Current Medications Medications Dose Ordered Sig/Sean Route Start Time Stop Time Status Last Admin Dose Admin Ondansetron HCl 4 mg Q4HP PRN IV 06/25/24 12:45 07/01/24 08:50 4 MG Acetaminophen 650 mg Q6HP PRN PO 06/25/24 12:45 Morphine Sulfate 2 mg Q4HPRN PRN IV 06/25/24 12:45 07/01/24 08:35 2 MG Lorazepam 0.25 mg Q6HP PRN IV 06/25/24 22:15 06/28/24 08:11 0.25 MG Gabapentin 300 mg TID PO 06/26/24 22:00 07/02/24 05:15 300 MG Labetalol HCl 10 mg Q2HPRN PRN IV 06/28/24 08:30 07/02/24 08:15 10 MG Diagnostic Test (Pha) 1 strip Q6HR 06/30/24 00:00 07/02/24 05:20 1 STRIP Insulin Human Regular FOLLOW SLIDING SCALE Q6HR SC 06/30/24 00:00 07/02/24 05:22 2 UNITS Dextrose 50 ml UD IV 06/29/24 22:00 Levetiracetam 100 ml @ 400 mls/hr BID IV 06/30/24 10:00 07/01/24 23:01 400 MLS/HR Dextrose/Sodium Chloride 1,000 ml @ 100 mls/hr Q10H IV 06/30/24 11:15 07/02/24 03:54 100 MLS/HR Sodium Chloride 10 ml QSHIFT@10,22 IV 06/30/24 22:00 07/01/24 23:02 10 ML Hydromorphone HCl 0.5 mg Q4HPRN PRN IV 07/01/24 09:45 07/01/24 20:35 0.5 MG Amino Acids 0 ml @ 0 mls/hr PER PHARMACY IV 07/01/24 13:45 Pantoprazole Sodium 40 mg DAILY IV 07/02/24 10:00 UNV Magnesium Sulfate/ Dextrose 100 ml @ 100 mls/hr Q1HR IV 07/02/24 10:00 07/02/24 11:59 UNV Enoxaparin Sodium 40 mg DAILY SC 07/02/24 10:00 UNV Laboratory Results Laboratory Tests 07/01/24 05:18 07/02/24 05:34 Chemistry Test 07/02/24 05:34 Albumin 3.5 g/dL (3.2-4.8) Calcium Level 9.1 mg/dL (8.7-10.4) Magnesium Level 1.4 mg/dL (1.6-2.6) L Phosphorus Level 1.9 mg/dL (2.4-5.1) L Total Protein 5.6 g/dL (5.7-8.2) L Lipid panel Test 07/02/24 05:34 Triglycerides Level 106 mg/dL (< 150) LFT Test 07/02/24 05:34 Alanine Aminotransferase (ALT) 14 U/L (7-40) Alkaline Phosphatase 56 U/L (46-116) Aspartate Amino Transferase (AST) 13 U/L (13-40) Total Bilirubin 0.5 mg/dL (0.2-1.0) Urinalysis Test 06/25/24 09:37 Urine Color Yellow (Yellow) Urine Clarity Clear (Clear) Urine pH 5.5 (5.0-9.0) Urine Specific [place] 1.023 (1.001-1.035) Urine Protein Trace (Negative) H Urine Ketones Negative (Negative) Urine Blood Negative /uL (Negative) Urine Nitrite Negative (Negative) Urine Bilirubin Negative (Negative) Urine Urobilinogen Normal mg/dL (Negative) Urine Leukocyte Esterase Negative /uL (Negative) Urine RBC 1 /hpf (0 - 4) Urine Microscopic WBC 2 /HPF (0-5) Urine Squamous Epithelial Cells Few /hpf (<5) Urine Bacteria None seen /hpf (None Seen) Urine Mucus Few (None Seen) Urine Glucose Normal mg/dL (Normal) Labs and/or images reviewed: Labs reviewed by me, Image(s) reviewed by me Assessment/Plan Assessment/Plan Impression: -ascending colon mass -cachexia -peptic ulcer disease -history of nephrectomy -epilepsy -uterine fibroids -hypokalemia Plan: Events: Postop day two. Still without bowel sounds. -K, Mag, phos replete -incentive spirometer -out of bed as tolerated. Physical therapy -GI consultation: Recommendations reviewed -continue TPN -PPI -pain management -recommendations reviewed -potassium replacement -continue D5 normal saline -repeat labs in a.m. Total time spent with patient discussing and formulating plan of care: 35 minutes. This medical document was created using an electronic medical record system with [employer] dictation system. Although this document has been carefully reviewed, there may still be some phonetic and typographical errors. These areas are purely typographical due to imperfections of the software programs, and do not reflect any compromise in the patient's medical care. Plan discussed with: Patient, Other (RN) My Orders Orders - BOBO JONES NP Procedure Category Date Status Time Tpn Per Pharmacy PHA 07/01/24 In Process 13:45 Amino Acid Infusion PHA 07/01/24 In Process In D10w ([facility] 4. 22:00 Tpn Per Pharmacy SAM 07/01/24 In Process 22:00 Complete Blood Count LAB 07/03/24 Verified 04:00 Comprehensive LAB 07/03/24 Verified Metabolic Panel 04:00 Pantoprazole PHA 07/02/24 Logged (Protonix) 10:00 Pt Request For Service PT 07/02/24 Logged 09:46 Magnesium Sulfate PHA 07/02/24 Logged 1gm/100ml 10:00 Potassium Phosphate PHA 07/02/24 Logged 10:00 Enoxaparin Sodium PHA 07/02/24 Logged (Lovenox) 10:00 Date of Service: Jul 02, 2024 Billing Provider: BOBO JONES NP Common Visit Codes: [id number] INP/OBS CARE(HIGH) BOBO JONES NP Jul 02, 2024 09:50
[2024-07-02] MEDS: PANTOPRAZOLE 40 MG/10 ML VIAL INJ IV SCH (10:16)
[2024-07-02] MEDS: MAGNESIUM SULFATE 1GM/100ML 100 ML IV SCH (10:25)
[2024-07-02] MEDS: ENOXAPARIN SOD 40 MG/0.4 ML SYRINGE SC SCH (10:25)
[2024-07-02] MEDS ORDERED: AMINO ACID INFUSION IN D10W 1,000 ML IV NR (12:30)
[2024-07-02] MEDS: POTASSIUM PHOSPHATE 22 MEQ in SODIUM CHL 0.9% 100 ML IV ONE (13:00)
--- NOTE | 2024-07-02 13:42 | DVHPN2 ---
Progress Note Date Seen: Jul 02, 2024 Medical Necessity Reason Pt with a Central, PICC or Fol: No Objective vital signs Vital Sign Date Time Temp Pulse Resp B/P (MAP) Pulse Ox O2 Delivery O2 Flow Rate FiO2 07/02/24 12:56 98.4 83 17 148/83 (104) 97 98.4 07/02/24 08:00 Room Air* 0 21 Total Intake and Output 07/01/24 07/01/24 07/02/24 15:00 23:00 07:00 Intake Total 100 ml 0 ml 792 ml Output Total 1650 ml 1250 ml Balance 100 ml -1650 ml -458 ml medications Current Medications Medications Dose Ordered Sig/Sean Route Start Time Stop Time Status Last Admin Dose Admin Ondansetron HCl 4 mg Q4HP PRN IV 06/25/24 12:45 07/01/24 08:50 4 MG Acetaminophen 650 mg Q6HP PRN PO 06/25/24 12:45 Morphine Sulfate 2 mg Q4HPRN PRN IV 06/25/24 12:45 07/02/24 09:52 2 MG Lorazepam 0.25 mg Q6HP PRN IV 06/25/24 22:15 06/28/24 08:11 0.25 MG Gabapentin 300 mg TID PO 06/26/24 22:00 07/02/24 13:13 300 MG Labetalol HCl 10 mg Q2HPRN PRN IV 06/28/24 08:30 07/02/24 08:15 10 MG Diagnostic Test (Pha) 1 strip Q6HR 06/30/24 00:00 07/02/24 11:08 1 STRIP Insulin Human Regular FOLLOW SLIDING SCALE Q6HR SC 06/30/24 00:00 07/02/24 12:06 2 UNITS Dextrose 50 ml UD IV 06/29/24 22:00 Levetiracetam 100 ml @ 400 mls/hr BID IV 06/30/24 10:00 07/02/24 09:48 400 MLS/HR Dextrose/Sodium Chloride 1,000 ml @ 100 mls/hr Q10H IV 06/30/24 11:15 07/02/24 03:54 100 MLS/HR Sodium Chloride 10 ml QSHIFT@10,22 IV 06/30/24 22:00 07/02/24 09:53 10 ML Hydromorphone HCl 0.5 mg Q4HPRN PRN IV 07/01/24 09:45 07/01/24 20:35 0.5 MG Amino Acids 0 ml @ 0 mls/hr PER PHARMACY IV 07/01/24 13:45 Pantoprazole Sodium 40 mg DAILY IV 07/02/24 10:00 07/02/24 10:16 40 MG Enoxaparin Sodium 40 mg DAILY SC 07/02/24 10:00 07/02/24 10:25 40 MG Fat Emulsion Intravenous 50 ml/ Potassium Phosphate 22 meq/ Magnesium Sulfate 8 meq/ Multivitamins 10 ml/Chromium/ Copper/Manganese/ Zinc 1 ml/Amino Acids/Dextrose/ Purified Water 1,068 ml @ 44 mls/hr [id number] IV 07/02/24 22:00 07/03/24 21:59 Amino Acids/ Electrolytes/ Dextrose 1,000 ml @ 41 mls/hr ONCE IV 07/02/24 12:30 07/02/24 21:59 laboratory and microbiology Laboratory Tests 07/02/24 05:34 07/01/24 05:18 Test 07/02/24 05:34 Range/Units Serum Glucose 127 H 74-106 mg/dL Problem List/Assessment/Plan Problem List/Assessment/Plan AFEBRILE VSS ABD SOFT BM + S/P R COLON RESECTION WOUND DRESSING IN PLACE NO COMPLICATIONS ALLOW SIPS OF WATER, CLEAR LIQUIDS CLOSE OBSERVATION Plan discussed with: Patient Dietary Evaluation Review Comments: Supplement with Ensure Clear TID when on clear liquid diet. Supplement with Ensure high proterin TID when pt can have a full liquid diet or texture as tolerated regular diet.. Expected Outcomes/Goals: gradual wt gain. avoid wt loss VILMA STRANGE MD Jul 02, 2024 13:42
[2024-07-02] MEDS: TPN PER PHARMACY IV NR (21:37)
[2024-07-03] VITALS (56 sets, daily range): BP systolic 91–249; BP diastolic 51–139; PULSE 59–115; RESP 8–21; TEMP 97.6–98.3; O2SAT 91–100
[2024-07-03 06:14] LABS: Basophils # (auto) 0 10 ^3/uL (0-0.2); Basophils % (auto) 0.3 % (0.0-2.0); Eosinophils # (auto) 0.4 10 ^3/uL (0-0.8); Eosinophils % (auto) 4.6 % (0.0-7.0); Hematocrit 32.5 % (36.0-46.0); Hemoglobin 10.9 g/dL (12.2-16.2); Lymphocytes # (auto) 2.1 10 ^3/uL (0.4-5.4); Lymphocytes % (auto) 23.5 % (10.0-50.0); Mean Corpuscular Hemoglobin 30.4 pg (28.0-32.0); Mean Corpuscular Hgb Conc. 33.6 g/dL (32.0-36.0); Mean Corpuscular Volume 90.4 fL (80.0-100.0); Monocytes # (auto) 0.6 10 ^3/uL (0-1.3); Monocytes % (auto) 6.9 % (0.0-12.0); Neutrophils # (auto) 5.8 10 ^3/uL (1.6-8.6); Neutrophils % (auto) 64.7 % (37.0-80.0); Nucleated Red Blood Cells % 0.1 %; Platelet Count (auto) 194 10^3/uL (140-450); Red Blood Cells 3.59 10^6/uL (4.0-5.20); Red Cell Distribution Width 13.1 % (11.8-14.3)
[2024-07-03 06:34] LABS: Albumin 3.5 g/dL (3.2-4.8); Alkaline Phosphatase 63 U/L (46-116); Anion Gap 9 (5-15); BUN/Creatinine Ratio 14.5 (10.0-20.0); Calcium 8.7 mg/dL (8.7-10.4); Carbon Dioxide 30 mmol/L (20-31); Chloride 104 mmol/L (98-107); Magnesium 1.7 mg/dL (1.6-2.6); Sodium 143 mmol/L (136-145)
[2024-07-03 06:35] LABS: Bilirubin, Total 0.5 mg/dL (0.2-1.0); Phosphorus 3.6 mg/dL (2.4-5.1)
[2024-07-03 06:39] LABS: Alanine Aminotransferase 59 U/L (7-40); Aspartate Aminotransferase 51 U/L (13-40); Blood Urea Nitrogen 8 mg/dL (9-23); Glucose 144 mg/dL (74-106); Total Protein 5.7 g/dL (5.7-8.2)
[2024-07-03] MEDS: SODIUM CHL 0.9% 100 ML IV ONE (09:45)
--- NOTE | 2024-07-03 10:03 | DVHPN2 ---
Subjective Patient reports having "impending doom." Reviewed: Care Plan, H&P, Labs, Medications, Previous Orders, Radiology Changes from previous H/P or p: No Changes General: Per HPI Gastrointestinal: Abdominal Pain, Diarrhea, Hematochezia Objective Vitals Vital Signs Date Time Temp Pulse Resp B/P (MAP) Pulse Ox O2 Delivery O2 Flow Rate FiO2 07/03/24 09:20 61 219/101 07/03/24 09:07 16 07/03/24 08:50 98.2 98 98.2 07/02/24 20:00 Room Air* 0 21 Intake/Output Intake and Output 07/03/24 07:00 Intake Total 1905 ml Output Total 3700 ml Balance -1795 ml Intake Oral 400 ml IV Total 1505 ml Output Urine Total 3700 ml # Bowel Movements 2 General Appearance: Alert, Oriented X3, Cooperative, No acute distress HEENT: Atraumatic, PERRLA Lungs: Clear to auscultation, Normal air movement Cardiovascular: Normal S1, Normal S2 Abdomen: Normal bowel sounds, Soft, No tenderness, No hepatospenomegaly, No masses Genitourinary: No Apparent Abnormalities Musculoskeletal: Normal sensory function, Normal motor function Neuro: Cranial nerves 3-12 NL Skin: Dry, Intact Psych/Mental Status: Mental status NL, Mood NL (Patient anxious) Medications Current Medications Medications Dose Ordered Sig/Sean Route Start Time Stop Time Status Last Admin Dose Admin Ondansetron HCl 4 mg Q4HP PRN IV 06/25/24 12:45 07/03/24 08:44 4 MG Acetaminophen 650 mg Q6HP PRN PO 06/25/24 12:45 Morphine Sulfate 2 mg Q4HPRN PRN IV 06/25/24 12:45 07/03/24 08:36 2 MG Lorazepam 0.25 mg Q6HP PRN IV 06/25/24 22:15 07/03/24 09:32 0.25 MG Gabapentin 300 mg TID PO 06/26/24 22:00 07/03/24 05:23 300 MG Labetalol HCl 10 mg Q2HPRN PRN IV 06/28/24 08:30 07/03/24 08:37 10 MG Diagnostic Test (Pha) 1 strip Q6HR 06/30/24 00:00 07/03/24 05:40 1 STRIP Insulin Human Regular FOLLOW SLIDING SCALE Q6HR SC 06/30/24 00:00 07/02/24 23:48 4 UNITS Dextrose 50 ml UD IV 06/29/24 22:00 Levetiracetam 100 ml @ 400 mls/hr BID IV 06/30/24 10:00 07/02/24 21:30 400 MLS/HR Dextrose/Sodium Chloride 1,000 ml @ 100 mls/hr Q10H IV 06/30/24 11:15 07/03/24 09:42 100 MLS/HR Sodium Chloride 10 ml QSHIFT@10,22 IV 06/30/24 22:00 07/02/24 21:47 10 ML Hydromorphone HCl 0.5 mg Q4HPRN PRN IV 07/01/24 09:45 07/01/24 20:35 0.5 MG Amino Acids 0 ml @ 0 mls/hr PER PHARMACY IV 07/01/24 13:45 Pantoprazole Sodium 40 mg DAILY IV 07/02/24 10:00 07/02/24 10:16 40 MG Enoxaparin Sodium 40 mg DAILY SC 07/02/24 10:00 07/02/24 10:25 40 MG Fat Emulsion Intravenous 50 ml/ Potassium Phosphate 22 meq/ Magnesium Sulfate 8 meq/ Multivitamins 10 ml/Chromium/ Copper/Manganese/ Zinc 1 ml/Amino Acids/Dextrose/ Purified Water 1,068 ml @ 44 mls/hr [id number] IV 07/02/24 22:00 07/03/24 21:59 07/02/24 21:37 44 MLS/HR Potassium Chloride 50 ml @ 25 mls/hr Q2H IV 07/03/24 09:45 07/03/24 13:44 Nitroglycerin 250 ml @ 1.5 mls/hr Q24H IV 07/03/24 09:30 Laboratory Results Laboratory Tests 07/03/24 05:17 Chemistry Test 07/03/24 05:17 Albumin 3.5 g/dL (3.2-4.8) Calcium Level 8.7 mg/dL (8.7-10.4) Magnesium Level 1.7 mg/dL (1.6-2.6) Phosphorus Level 3.6 mg/dL (2.4-5.1) Total Protein 5.7 g/dL (5.7-8.2) LFT Test 07/03/24 05:17 Alanine Aminotransferase (ALT) 59 U/L (7-40) H Alkaline Phosphatase 63 U/L (46-116) Aspartate Amino Transferase (AST) 51 U/L (13-40) H Total Bilirubin 0.5 mg/dL (0.2-1.0) Urinalysis Test 06/25/24 09:37 Urine Color Yellow (Yellow) Urine Clarity Clear (Clear) Urine pH 5.5 (5.0-9.0) Urine Specific [place] 1.023 (1.001-1.035) Urine Protein Trace (Negative) H Urine Ketones Negative (Negative) Urine Blood Negative /uL (Negative) Urine Nitrite Negative (Negative) Urine Bilirubin Negative (Negative) Urine Urobilinogen Normal mg/dL (Negative) Urine Leukocyte Esterase Negative /uL (Negative) Urine RBC 1 /hpf (0 - 4) Urine Microscopic WBC 2 /HPF (0-5) Urine Squamous Epithelial Cells Few /hpf (<5) Urine Bacteria None seen /hpf (None Seen) Urine Mucus Few (None Seen) Urine Glucose Normal mg/dL (Normal) Labs and/or images reviewed: Labs reviewed by me, Image(s) reviewed by me Assessment/Plan Assessment/Plan Impression: -ascending colon mass -cachexia -peptic ulcer disease -history of nephrectomy -epilepsy -uterine fibroids -hypokalemia Plan: Events: Postop day two. Still without bowel sounds. -K, Mag, phos replete -incentive spirometer -out of bed as tolerated. Physical therapy -GI consultation: Recommendations reviewed -continue TPN -PPI -pain management -recommendations reviewed -potassium replacement -continue D5 normal saline -repeat labs in a.m. Total time spent with patient discussing and formulating plan of care: 35 minutes. This medical document was created using an electronic medical record system with [employer] dictation system. Although this document has been carefully reviewed, there may still be some phonetic and typographical errors. These areas are purely typographical due to imperfections of the software programs, and do not reflect any compromise in the patient's medical care. Plan discussed with: Patient, Spouse My Orders Orders - BOBO JONES NP Procedure Category Date Status Time Amino Acid PHA 07/02/24 In Process Infusion... W/Fat 22:00 Tpn Per Pharmacy SAM 07/02/24 In Process 22:00 Potassium Chl PHA 07/03/24 In Process 20meq/50ml (Potassium 09:45 Comprehensive LAB 07/04/24 Verified Metabolic Panel 04:00 Complete Blood Count LAB 07/04/24 Verified 04:00 Transfer Orders XFER 07/03/24 Transmitted 09:29 Nitroglycerin PHA 07/03/24 In Process 50mg/250ml (Tridil) 09:30 Electrocardigram EKG 07/03/24 Logged 09:31 Sodium Chl 0.9% PHA 07/03/24 In Process (Sodium Chloride) 09:45 Date of Service: Jul 03, 2024 Billing Provider: BOBO JONES NP Common Visit Codes: [id number] CARE 30-74 MIN BOBO JONES NP Jul 03, 2024 10:03
--- NOTE | 2024-07-03 10:06 | DVHPN2 ---
Subjective Patient reports having "impending doom. Reviewed: Care Plan, H&P, Labs, Medications, Previous Orders, Radiology Changes from previous H/P or p: No Changes General: Per HPI Gastrointestinal: Abdominal Pain, Diarrhea, Hematochezia Objective Vitals Vital Signs Date Time Temp Pulse Resp B/P (MAP) Pulse Ox O2 Delivery O2 Flow Rate FiO2 07/03/24 09:20 61 219/101 07/03/24 09:07 16 07/03/24 08:50 98.2 98 98.2 07/02/24 20:00 Room Air* 0 21 Intake/Output Intake and Output 07/03/24 07:00 Intake Total 1905 ml Output Total 3700 ml Balance -1795 ml Intake Oral 400 ml IV Total 1505 ml Output Urine Total 3700 ml # Bowel Movements 2 General Appearance: Alert, Oriented X3, Cooperative, No acute distress HEENT: Atraumatic, PERRLA Lungs: Clear to auscultation, Normal air movement Cardiovascular: Normal S1, Normal S2 Abdomen: Normal bowel sounds, Soft, No tenderness, No hepatospenomegaly, No masses Genitourinary: No Apparent Abnormalities Musculoskeletal: Normal sensory function, Normal motor function Neuro: Cranial nerves 3-12 NL Skin: Dry, Intact Psych/Mental Status: Mental status NL, Mood NL (Patient anxious) Medications Current Medications Medications Dose Ordered Sig/Sean Route Start Time Stop Time Status Last Admin Dose Admin Ondansetron HCl 4 mg Q4HP PRN IV 06/25/24 12:45 07/03/24 08:44 4 MG Acetaminophen 650 mg Q6HP PRN PO 06/25/24 12:45 Morphine Sulfate 2 mg Q4HPRN PRN IV 06/25/24 12:45 07/03/24 08:36 2 MG Lorazepam 0.25 mg Q6HP PRN IV 06/25/24 22:15 07/03/24 09:32 0.25 MG Gabapentin 300 mg TID PO 06/26/24 22:00 07/03/24 05:23 300 MG Labetalol HCl 10 mg Q2HPRN PRN IV 06/28/24 08:30 07/03/24 08:37 10 MG Diagnostic Test (Pha) 1 strip Q6HR 06/30/24 00:00 07/03/24 05:40 1 STRIP Insulin Human Regular FOLLOW SLIDING SCALE Q6HR SC 06/30/24 00:00 07/02/24 23:48 4 UNITS Dextrose 50 ml UD IV 06/29/24 22:00 Levetiracetam 100 ml @ 400 mls/hr BID IV 06/30/24 10:00 07/02/24 21:30 400 MLS/HR Dextrose/Sodium Chloride 1,000 ml @ 100 mls/hr Q10H IV 06/30/24 11:15 07/03/24 09:42 100 MLS/HR Sodium Chloride 10 ml QSHIFT@10,22 IV 06/30/24 22:00 07/02/24 21:47 10 ML Hydromorphone HCl 0.5 mg Q4HPRN PRN IV 07/01/24 09:45 07/01/24 20:35 0.5 MG Amino Acids 0 ml @ 0 mls/hr PER PHARMACY IV 07/01/24 13:45 Pantoprazole Sodium 40 mg DAILY IV 07/02/24 10:00 07/02/24 10:16 40 MG Enoxaparin Sodium 40 mg DAILY SC 07/02/24 10:00 07/02/24 10:25 40 MG Fat Emulsion Intravenous 50 ml/ Potassium Phosphate 22 meq/ Magnesium Sulfate 8 meq/ Multivitamins 10 ml/Chromium/ Copper/Manganese/ Zinc 1 ml/Amino Acids/Dextrose/ Purified Water 1,068 ml @ 44 mls/hr [id number] IV 07/02/24 22:00 07/03/24 21:59 07/02/24 21:37 44 MLS/HR Potassium Chloride 50 ml @ 25 mls/hr Q2H IV 07/03/24 09:45 07/03/24 13:44 Nitroglycerin 250 ml @ 1.5 mls/hr Q24H IV 07/03/24 09:30 Laboratory Results Laboratory Tests 07/03/24 05:17 Chemistry Test 07/03/24 05:17 Albumin 3.5 g/dL (3.2-4.8) Calcium Level 8.7 mg/dL (8.7-10.4) Magnesium Level 1.7 mg/dL (1.6-2.6) Phosphorus Level 3.6 mg/dL (2.4-5.1) Total Protein 5.7 g/dL (5.7-8.2) LFT Test 07/03/24 05:17 Alanine Aminotransferase (ALT) 59 U/L (7-40) H Alkaline Phosphatase 63 U/L (46-116) Aspartate Amino Transferase (AST) 51 U/L (13-40) H Total Bilirubin 0.5 mg/dL (0.2-1.0) Urinalysis Test 06/25/24 09:37 Urine Color Yellow (Yellow) Urine Clarity Clear (Clear) Urine pH 5.5 (5.0-9.0) Urine Specific [place] 1.023 (1.001-1.035) Urine Protein Trace (Negative) H Urine Ketones Negative (Negative) Urine Blood Negative /uL (Negative) Urine Nitrite Negative (Negative) Urine Bilirubin Negative (Negative) Urine Urobilinogen Normal mg/dL (Negative) Urine Leukocyte Esterase Negative /uL (Negative) Urine RBC 1 /hpf (0 - 4) Urine Microscopic WBC 2 /HPF (0-5) Urine Squamous Epithelial Cells Few /hpf (<5) Urine Bacteria None seen /hpf (None Seen) Urine Mucus Few (None Seen) Urine Glucose Normal mg/dL (Normal) Labs and/or images reviewed: Labs reviewed by me, Image(s) reviewed by me Assessment/Plan Assessment/Plan Impression: -ascending colon mass -cachexia -peptic ulcer disease -history of nephrectomy -epilepsy -uterine fibroids -hypokalemia Plan: Events: Patient now reporting having impending doom. Extremely hypertensive that was refractory to several doses of IV labetalol. -check troponin level. Check VBG -transfer to ICU for Tridil drip -K replete -incentive spirometer -out of bed as tolerated. Physical therapy -GI consultation: Recommendations reviewed -continue TPN -PPI -pain management -recommendations reviewed -potassium replacement -continue D5 normal saline -repeat labs in a.m. Total time spent with patient discussing and formulating plan of care: 35 minutes. This medical document was created using an electronic medical record system with [employer] dictation system. Although this document has been carefully reviewed, there may still be some phonetic and typographical errors. These areas are purely typographical due to imperfections of the software programs, and do not reflect any compromise in the patient's medical care. Plan discussed with: Patient, Other (RN) My Orders Orders - BOBO JONES NP Procedure Category Date Status Time Amino Acid PHA 07/02/24 In Process Infusion... W/Fat 22:00 Tpn Per Pharmacy SAM 07/02/24 In Process 22:00 Potassium Chl PHA 07/03/24 In Process 20meq/50ml (Potassium 09:45 Comprehensive LAB 07/04/24 Verified Metabolic Panel 04:00 Complete Blood Count LAB 07/04/24 Verified 04:00 Transfer Orders XFER 07/03/24 Transmitted 09:29 Nitroglycerin PHA 07/03/24 In Process 50mg/250ml (Tridil) 09:30 Electrocardigram EKG 07/03/24 Logged 09:31 Sodium Chl 0.9% PHA 07/03/24 In Process (Sodium Chloride) 09:45 Date of Service: Jul 03, 2024 Billing Provider: BOBO JONES NP Common Visit Codes: [id number] CARE 30-74 MIN BOBO JONES NP Jul 03, 2024 10:06
[2024-07-03] MEDS: POTASSIUM CHL 20MEQ/50ML 50 ML IV SCH (11:08)
[2024-07-03] MEDS: NITROGLYCERIN 50MG/250ML 250 ML IV SCH (11:19)
[2024-07-03] MEDS: LORazepam 2MG/ML-1ML VIAL IV ONE (13:21)
--- NOTE | 2024-07-03 13:33 | DVHPN2 ---
Progress Note Date Seen: Jul 03, 2024 Medical Necessity Reason Pt with a Central, PICC or Fol: No Objective vital signs Vital Sign Date Time Temp Pulse Resp B/P (MAP) Pulse Ox O2 Delivery O2 Flow Rate FiO2 07/03/24 12:45 64 11 163/86 (111) 94 07/03/24 12:00 Room Air* 0 95 21 07/03/24 11:00 97.6 97.6 Total Intake and Output 07/02/24 07/02/24 07/03/24 15:00 23:00 07:00 Intake Total 300 ml 1205 ml 400 ml Output Total 1900 ml 1800 ml Balance 300 ml -695 ml -1400 ml medications Current Medications Medications Dose Ordered Sig/Sean Route Start Time Stop Time Status Last Admin Dose Admin Ondansetron HCl 4 mg Q4HP PRN IV 06/25/24 12:45 07/03/24 12:43 4 MG Acetaminophen 650 mg Q6HP PRN PO 06/25/24 12:45 Morphine Sulfate 2 mg Q4HPRN PRN IV 06/25/24 12:45 07/03/24 08:36 2 MG Lorazepam 0.25 mg Q6HP PRN IV 06/25/24 22:15 07/03/24 09:32 0.25 MG Gabapentin 300 mg TID PO 06/26/24 22:00 07/03/24 05:23 300 MG Labetalol HCl 10 mg Q2HPRN PRN IV 06/28/24 08:30 07/03/24 08:37 10 MG Diagnostic Test (Pha) 1 strip Q6HR 06/30/24 00:00 07/03/24 12:19 1 STRIP Insulin Human Regular FOLLOW SLIDING SCALE Q6HR SC 06/30/24 00:00 07/03/24 12:38 8 UNITS Dextrose 50 ml UD IV 06/29/24 22:00 Levetiracetam 100 ml @ 400 mls/hr BID IV 06/30/24 10:00 07/03/24 11:00 400 MLS/HR Dextrose/Sodium Chloride 1,000 ml @ 100 mls/hr Q10H IV 06/30/24 11:15 07/03/24 09:42 100 MLS/HR Sodium Chloride 10 ml QSHIFT@,22 IV 06/30/24 22:00 07/03/24 11:01 10 ML Hydromorphone HCl 0.5 mg Q4HPRN PRN IV 07/01/24 09:45 07/01/24 20:35 0.5 MG Amino Acids 0 ml @ 0 mls/hr PER PHARMACY IV 07/01/24 13:45 Pantoprazole Sodium 40 mg DAILY IV 07/02/24 10:00 07/03/24 11:00 40 MG Enoxaparin Sodium 40 mg DAILY SC 07/02/24 10:00 07/03/24 11:00 40 MG Fat Emulsion Intravenous 50 ml/ Potassium Phosphate 22 meq/ Magnesium Sulfate 8 meq/ Multivitamins 10 ml/Chromium/ Copper/Manganese/ Zinc 1 ml/Amino Acids/Dextrose/ Purified Water 1,068 ml @ 44 mls/hr [id number] IV 07/02/24 22:00 07/03/24 21:59 07/02/24 21:37 44 MLS/HR Potassium Chloride 50 ml @ 25 mls/hr Q2H IV 07/03/24 09:45 07/03/24 13:44 07/03/24 12:09 25 MLS/HR Nitroglycerin 250 ml @ 1.5 mls/hr Q24H IV 07/03/24 09:30 07/03/24 11:19 1.5 MLS/HR Fat Emulsion Intravenous 100 ml/Potassium Phosphate 22 meq/ Calcium Gluconate 2.3 meq/Magnesium Sulfate 16 meq/ Multivitamins 10 ml/Chromium/ Copper/Manganese/ Zinc 1 ml/Amino Acids/Dextrose 1,124.9462 ml @ 47 mls/hr [id number] IV 07/03/24 22:00 07/04/24 21:59 laboratory and microbiology Laboratory Tests 07/03/24 05:17 Test 07/03/24 05:17 Range/Units Serum Glucose 144 H 74-106 mg/dL Problem List/Assessment/Plan Problem List/Assessment/Plan AFEBRILE VSS HYPERTENSIVE ABD SOFT BM + S/P R COLON RESECTION WOUND DRESSING IN PLACE NO COMPLICATIONS ALLOW SIPS OF WATER, CLEAR LIQUIDS CLOSE OBSERVATION BEING TRANSFERRED TO ICU FOR BP CONTROL Plan discussed with: Patient My Orders My Orders Orders - VILMA STRANGE MD Procedure Category Date Status Time Npo (Nothing By DIET 07/03/24 Transmitted Mouth) Diet Lunch Dietary Evaluation Review Comments: Supplement with Ensure Clear TID when on clear liquid diet. Supplement with Ensure high proterin TID when pt can have a full liquid diet or texture as tolerated regular diet.. Expected Outcomes/Goals: gradual wt gain. avoid wt loss VILMA STRANGE MD Jul 03, 2024 13:33
--- NOTE | 2024-07-03 14:35 | ECG ---
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
[2024-07-03] MEDS: TPN PER PHARMACY IV NR (21:15)
[2024-07-04] VITALS (106 sets, daily range): BP systolic 0–204; BP diastolic 0–141; PULSE 0–171; RESP 0–31; TEMP 92.3–98.3; O2SAT 0–100
[2024-07-04 04:06] LABS: Alkaline Phosphatase 91 U/L (46-116); Anion Gap 10 (5-15); BUN/Creatinine Ratio 29.4 (10.0-20.0); Basophils # (auto) 0 10 ^3/uL (0-0.2); Basophils % (auto) 0.2 % (0.0-2.0); Bilirubin, Total 0.5 mg/dL (0.2-1.0); Blood Urea Nitrogen 20 mg/dL (9-23); Calcium 9.7 mg/dL (8.7-10.4); Eosinophils # (auto) 0.1 10 ^3/uL (0-0.8); Eosinophils % (auto) 0.9 % (0.0-7.0); Hematocrit 32.3 % (36.0-46.0); Hemoglobin 11.1 g/dL (12.2-16.2); Lymphocytes # (auto) 2.3 10 ^3/uL (0.4-5.4); Mean Corpuscular Hemoglobin 30.7 pg (28.0-32.0); Mean Corpuscular Hgb Conc. 34.5 g/dL (32.0-36.0); Monocytes % (auto) 6.3 % (0.0-12.0); Neutrophils # (auto) 12.7 10 ^3/uL (1.6-8.6); Neutrophils % (auto) 78.6 % (37.0-80.0); Phosphorus 3.8 mg/dL (2.4-5.1); Platelet Count (auto) 257 10^3/uL (140-450); Red Blood Cells 3.62 10^6/uL (4.0-5.20); Total Protein 6.7 g/dL (5.7-8.2); White Blood Cell 16.1 10^3/uL (4.4-10.8)
[2024-07-04 04:20] LABS: Alanine Aminotransferase 298 U/L (7-40); Aspartate Aminotransferase 247 U/L (13-40); Carbon Dioxide 32 mmol/L (20-31); Chloride 94 mmol/L (98-107); Glucose 123 mg/dL (74-106); Sodium 136 mmol/L (136-145)
[2024-07-04] MEDS ORDERED: POTASSIUM CHL 20MEQ/100ML 100 ML IV SCH (04:45)
[2024-07-04] MEDS: POTASSIUM CHL 20MEQ/50ML 50 ML IV SCH (08:02)
[2024-07-04] MEDS: cloNIDine 0.1 mg/24hr 7 DAY PATCH TD ONE (09:00)
--- NOTE | 2024-07-04 09:17 | DVHPN2 ---
Subjective Patient reports having "impending doom. Reviewed: Care Plan, H&P, Labs, Medications, Previous Orders, Radiology Changes from previous H/P or p: No Changes General: Per HPI Gastrointestinal: Abdominal Pain, Diarrhea, Hematochezia Objective Vitals Vital Signs Date Time Temp Pulse Resp B/P (MAP) Pulse Ox O2 Delivery O2 Flow Rate FiO2 07/04/24 08:49 122/70 07/04/24 08:15 89 18 94 07/04/24 08:00 Room Air* 0 21 07/04/24 08:00 98.3 98.3 Intake/Output Intake and Output 07/04/24 06:59 Intake Total 3269.0 ml Output Total 1350 ml Balance 1919.0 ml IV Total 3269.0 ml Output Urine Total 1350 ml # Bowel Movements 1 General Appearance: Alert, Oriented X3, Cooperative, No acute distress HEENT: Atraumatic, PERRLA Lungs: Clear to auscultation, Normal air movement Cardiovascular: Normal S1, Normal S2 Abdomen: Normal bowel sounds, Soft, No tenderness, No hepatospenomegaly, No masses Genitourinary: No Apparent Abnormalities Musculoskeletal: Normal sensory function, Normal motor function Neuro: Cranial nerves 3-12 NL Skin: Dry, Intact Psych/Mental Status: Mental status NL, Mood NL (Patient anxious) Medications Current Medications Medications Dose Ordered Sig/Sean Route Start Time Stop Time Status Last Admin Dose Admin Ondansetron HCl 4 mg Q4HP PRN IV 06/25/24 12:45 07/04/24 05:36 4 MG Acetaminophen 650 mg Q6HP PRN PO 06/25/24 12:45 Morphine Sulfate 2 mg Q4HPRN PRN IV 06/25/24 12:45 07/03/24 18:08 2 MG Lorazepam 0.25 mg Q6HP PRN IV 06/25/24 22:15 07/03/24 09:32 0.25 MG Gabapentin 300 mg TID PO 06/26/24 22:00 07/03/24 05:23 300 MG Labetalol HCl 10 mg Q2HPRN PRN IV 06/28/24 08:30 07/03/24 08:37 10 MG Diagnostic Test (Pha) 1 strip Q6HR 06/30/24 00:00 07/04/24 05:43 1 STRIP Insulin Human Regular FOLLOW SLIDING SCALE Q6HR SC 06/30/24 00:00 07/03/24 23:15 4 UNITS Dextrose 50 ml UD IV 06/29/24 22:00 Levetiracetam 100 ml @ 400 mls/hr BID IV 06/30/24 10:00 07/03/24 21:11 400 MLS/HR Sodium Chloride 10 ml QSHIFT@10,22 IV 06/30/24 22:00 07/03/24 21:10 10 ML Hydromorphone HCl 0.5 mg Q4HPRN PRN IV 07/01/24 09:45 07/03/24 21:07 0.5 MG Amino Acids 0 ml @ 0 mls/hr PER PHARMACY IV 07/01/24 13:45 Pantoprazole Sodium 40 mg DAILY IV 07/02/24 10:00 07/03/24 11:00 40 MG Enoxaparin Sodium 40 mg DAILY SC 07/02/24 10:00 07/03/24 11:00 40 MG Nitroglycerin 250 ml @ 1.5 mls/hr Q24H IV 07/03/24 09:30 07/03/24 11:19 1.5 MLS/HR Fat Emulsion Intravenous 100 ml/Potassium Phosphate 22 meq/ Calcium Gluconate 2.3 meq/Magnesium Sulfate 16 meq/ Multivitamins 10 ml/Chromium/ Copper/Manganese/ Zinc 1 ml/Amino Acids/Dextrose 1,124.9462 ml @ 47 mls/hr [id number] IV 07/03/24 22:00 07/04/24 21:59 07/03/24 21:15 47 MLS/HR Potassium Chloride 50 ml @ 25 mls/hr Q2H IV 07/04/24 08:00 07/04/24 15:59 07/04/24 09:01 25 MLS/HR Laboratory Results Laboratory Tests 07/04/24 03:15 Chemistry Test 07/04/24 03:15 Albumin 4.0 g/dL (3.2-4.8) Calcium Level 9.7 mg/dL (8.7-10.4) Magnesium Level 2.0 mg/dL (1.6-2.6) Phosphorus Level 3.8 mg/dL (2.4-5.1) Total Protein 6.7 g/dL (5.7-8.2) LFT Test 07/04/24 03:15 Alanine Aminotransferase (ALT) 298 U/L (7-40) H Alkaline Phosphatase 91 U/L (46-116) Aspartate Amino Transferase (AST) 247 U/L (13-40) H Total Bilirubin 0.5 mg/dL (0.2-1.0) Urinalysis Test 06/25/24 09:37 Urine Color Yellow (Yellow) Urine Clarity Clear (Clear) Urine pH 5.5 (5.0-9.0) Urine Specific [place] 1.023 (1.001-1.035) Urine Protein Trace (Negative) H Urine Ketones Negative (Negative) Urine Blood Negative /uL (Negative) Urine Nitrite Negative (Negative) Urine Bilirubin Negative (Negative) Urine Urobilinogen Normal mg/dL (Negative) Urine Leukocyte Esterase Negative /uL (Negative) Urine RBC 1 /hpf (0 - 4) Urine Microscopic WBC 2 /HPF (0-5) Urine Squamous Epithelial Cells Few /hpf (<5) Urine Bacteria None seen /hpf (None Seen) Urine Mucus Few (None Seen) Urine Glucose Normal mg/dL (Normal) Blood Gas Results Test 07/03/24 10:29 FiO2 % 21.0 Labs and/or images reviewed: Labs reviewed by me, Image(s) reviewed by me Assessment/Plan Assessment/Plan Impression: -ascending colon mass -cachexia -peptic ulcer disease -history of nephrectomy -epilepsy -uterine fibroids -hypokalemia Plan: Events: Patient denies any symptoms. Continues to be on Tridil drip. Troponins were negative x3 yesterday. VBG unremarkable -still not tolerating oral intake. We will add clonidine patch in addition to IV antihypertensives -transfer to ICU for Tridil drip -K3.0. Potassium replacement -incentive spirometer -out of bed as tolerated. Physical therapy -GI consultation: Recommendations reviewed -continue TPN -PPI -pain management -recommendations reviewed -potassium replacement -continue D5 normal saline -repeat labs in a.m. Total time spent with patient discussing and formulating plan of care: 35 minutes. This medical document was created using an electronic medical record system with [employer] system. Although this document has been carefully reviewed, there may still be some phonetic and typographical errors. These areas are purely typographical due to imperfections of the software programs, and do not reflect any compromise in the patient's medical care. Plan discussed with: Patient, Other (RN) My Orders Orders - BOBO JONES NP Procedure Category Date Status Time Transfer Orders XFER 07/03/24 Transmitted 09:29 Nitroglycerin PHA 07/03/24 In Process 50mg/250ml (Tridil) 09:30 Venous Blood Gas RT 07/03/24 Logged 09:51 Amino Acid PHA 07/03/24 In Process Infusion... W/Fat 22:00 Mrsa Screen LUPILLO 07/03/24 In Process 11:30 Complete Blood Count LAB 07/05/24 Verified 04:00 Comprehensive LAB 07/05/24 Verified Metabolic Panel 04:00 Potassium LAB 07/04/24 Logged 14:00 D/C Mendez SAM 07/04/24 In Process 08:55 Date of Service: Jul 04, 2024 Billing Provider: BOBO JONES NP Common Visit Codes: 16401-WCIVFRAM CARE 30-74 MIN BOBO JONES NP Jul 04, 2024 09:17
[2024-07-04] MEDS: D5W/ SOD CHL 0.9%/KCL 20MEQ 1,000 ML IV SCH (12:53)
[2024-07-04] MEDS: SODIUM CHLORIDE 0.9% 500 ML IV ONE ×3 (13:30→21:00)
[2024-07-04 14:01] LABS: Basophils # (auto) 0 10 ^3/uL (0-0.2); Basophils % (auto) 0.4 % (0.0-2.0); Eosinophils # (auto) 0.4 10 ^3/uL (0-0.8); Hematocrit 25.4 % (36.0-46.0); Hemoglobin 8.5 g/dL (12.2-16.2); Lymphocytes % (auto) 24.1 % (10.0-50.0); Mean Corpuscular Hemoglobin 30.6 pg (28.0-32.0); Mean Corpuscular Hgb Conc. 33.6 g/dL (32.0-36.0); Mean Corpuscular Volume 90.9 fL (80.0-100.0); Monocytes # (auto) 0.9 10 ^3/uL (0-1.3); Monocytes % (auto) 7.1 % (0.0-12.0); Neutrophils # (auto) 8.1 10 ^3/uL (1.6-8.6); Neutrophils % (auto) 65.4 % (37.0-80.0); Platelet Count (auto) 257 10^3/uL (140-450); Red Blood Cells 2.79 10^6/uL (4.0-5.20); Red Cell Distribution Width 12.8 % (11.8-14.3); White Blood Cell 12.3 10^3/uL (4.4-10.8)
[2024-07-04 14:21] LABS: Albumin 3.3 g/dL (3.2-4.8); Alkaline Phosphatase 105 U/L (46-116); Anion Gap 7 (5-15); BUN/Creatinine Ratio 25.3 (10.0-20.0); Bilirubin, Total 0.5 mg/dL (0.2-1.0); Blood Urea Nitrogen 20 mg/dL (9-23); Carbon Dioxide 26 mmol/L (20-31); Chloride 105 mmol/L (98-107); Magnesium 2.1 mg/dL (1.6-2.6); Potassium 3.7 mmol/L (3.5-5.1); Sodium 138 mmol/L (136-145)
[2024-07-04 14:22] LABS: Alanine Aminotransferase 385 U/L (7-40); Aspartate Aminotransferase 338 U/L (13-40); Calcium 8.6 mg/dL (8.7-10.4); Glucose 238 mg/dL (74-106); Total Protein 5.2 g/dL (5.7-8.2)
--- NOTE | 2024-07-04 14:44 | DVH ---
Exam: CT CT AB PEL WO CON-NO ORAL OR IV History: abd pain Comparison Study: None Technique: Multidetector spiral CT of the abdomen was performed from lung bases to pubic symphysis. I maging was performed without IV contrast. Axial, coronal and sagittal multiplanar reformats were obta ined from the axial data set by the technologist. Radiation Dose : 1. Abdomen/Pelvis: CTDIvol 5.22 mGy, DLP 270.14 mGy*cm. Findings: Evaluation of solid organs is limited due to lack of intravenous contrast use. Lung Bases: Left basilar subsegmental atelectasis or scarring. Liver: The liver is normal in size. No focal lesions. Gallbladder and Biliary Tree: Gallbladder is surgically absent. Spleen: Unremarkable Pancreas: The pancreas is grossly normal in appearance. Adrenal Glands: Unremarkable Kidneys: Kidneys are grossly normal without calculi or hydronephrosis. Bladder: Grossly unremarkable for degree of distention. Bowel: The stomach is grossly normal in appearance. Post resection of ascending colon mass with posts urgical changes in the right lower quadrant. Ascites: Small volume complex ascites. Lymphadenopathy: No mesenteric, retroperitoneal or periportal lymphadenopathy. Abdominal Wall and Mesentery: Small to moderate volume free intraperitoneal air. Vasculature: The visualized abdominal aorta is normal in size and caliber. Evaluation of abdominal a nd pelvic vessels is limited due to lack of intravenous contrast. Pelvic Organs: Enlarged heterogeneous uterus is unchanged likely representing fibroid uterus. Musculoskeletal: No aggressive focal bony lesions, acute fractures or dislocation. Degenerative le es of the spine. IMPRESSION: Post resection of ascending colonic mass. Postsurgical changes are present in the right lower quadra nt. Small volume complex ascites; nonspecific. Radiation optimization: All CT scans at this facility use at least one of these dose optimization janice hniques: automated exposure control mA and/or kV adjustment per patient size (includes targeted exam s where dose is matched to clinical indication) or iterative reconstruction.
[2024-07-04] MEDS ORDERED: NOREPINEPHRINE 8 MG/250ML KIT 250 ML IV SCH ×2 (14:45→15:15)
[2024-07-04] MEDS: ETOMIDATE (2MG/ML) 20ML VIAL IV ONE ×2 (14:59→15:02)
--- NOTE | 2024-07-04 14:59 | DVHPN2 ---
Progress Note Date Seen: Jul 04, 2024 Medical Necessity Reason Pt with a Central, PICC or Fol: No Objective vital signs Vital Sign Date Time Temp Pulse Resp B/P (MAP) Pulse Ox O2 Delivery O2 Flow Rate FiO2 07/04/24 12:00 13 95 Room Air* 0 21 07/04/24 11:30 97 123/71 (88) 07/04/24 08:00 98.3 98.3 Total Intake and Output 07/03/24 07/03/24 07/04/24 14:59 22:59 06:59 Intake Total 647.0 ml 1374.0 ml 1248 ml Output Total 700 ml 650 ml Balance 647.0 ml 674.0 ml 598 ml medications Current Medications Medications Dose Ordered Sig/Sean Route Start Time Stop Time Status Last Admin Dose Admin Ondansetron HCl 4 mg Q4HP PRN IV 06/25/24 12:45 07/04/24 12:51 4 MG Acetaminophen 650 mg Q6HP PRN PO 06/25/24 12:45 Hold Morphine Sulfate 2 mg Q4HPRN PRN IV 06/25/24 12:45 07/03/24 18:08 2 MG Lorazepam 0.25 mg Q6HP PRN IV 06/25/24 22:15 07/03/24 09:32 0.25 MG Gabapentin 300 mg TID PO 06/26/24 22:00 07/03/24 05:23 300 MG Labetalol HCl 10 mg Q2HPRN PRN IV 06/28/24 08:30 07/03/24 08:37 10 MG Diagnostic Test (Pha) 1 strip Q6HR 06/30/24 00:00 07/04/24 12:02 1 STRIP Insulin Human Regular FOLLOW SLIDING SCALE Q6HR SC 06/30/24 00:00 07/04/24 11:59 2 UNITS Dextrose 50 ml UD IV 06/29/24 22:00 Levetiracetam 100 ml @ 400 mls/hr BID IV 06/30/24 10:00 07/04/24 09:57 400 MLS/HR Sodium Chloride 10 ml QSHIFT@10,22 IV 06/30/24 22:00 07/04/24 09:57 10 ML Hydromorphone HCl 0.5 mg Q4HPRN PRN IV 07/01/24 09:45 07/03/24 21:07 0.5 MG Amino Acids 0 ml @ 0 mls/hr PER PHARMACY IV 07/01/24 13:45 Pantoprazole Sodium 40 mg DAILY IV 07/02/24 10:00 07/04/24 09:56 40 MG Enoxaparin Sodium 40 mg DAILY SC 07/02/24 10:00 07/04/24 09:57 40 MG Nitroglycerin 250 ml @ 1.5 mls/hr Q24H IV 07/03/24 09:30 07/03/24 11:19 1.5 MLS/HR Fat Emulsion Intravenous 100 ml/Potassium Phosphate 22 meq/ Calcium Gluconate 2.3 meq/Magnesium Sulfate 16 meq/ Multivitamins 10 ml/Chromium/ Copper/Manganese/ Zinc 1 ml/Amino Acids/Dextrose 1,124.9462 ml @ 47 mls/hr [id number] IV 07/03/24 22:00 07/04/24 21:59 07/03/24 21:15 47 MLS/HR Potassium Chloride 50 ml @ 25 mls/hr Q2H IV 07/04/24 08:00 07/04/24 15:59 07/04/24 09:01 25 MLS/HR Potassium Chloride/Dextrose/ Sod Cl 1,000 ml @ 75 mls/hr [id number] IV 07/04/24 09:15 07/04/24 22:34 07/04/24 12:53 75 MLS/HR Fat Emulsion Intravenous 100 ml/Sodium Chloride 60 meq/ Potassium Chloride 60 meq/ Magnesium Sulfate 8 meq/ Multivitamins 10 ml/Chromium/ Copper/Manganese/ Zinc 1 ml/Amino Acids/Dextrose 1,158 ml @ 48 mls/hr Q24H8M IV 07/04/24 22:00 07/05/24 21:59 Norepinephrine Bitartrate 250 ml @ 3.75 mls/hr Q24H IV 07/04/24 14:45 laboratory and microbiology Laboratory Tests 07/04/24 13:41 Test 07/04/24 13:41 Range/Units Serum Glucose 238 H 74-106 mg/dL Microbiology Date/Time Source Procedure Growth Status 07/03/24 11:30 Nose MRSA Screen - Final Complete Problem List/Assessment/Plan Problem List/Assessment/Plan AFEBRILE VSS ABD SOFT BM + S/P R COLON RESECTION WOUND DRESSING IN PLACE NO COMPLICATIONS KEEP NPO CLOSE OBSERVATION BEING TRANSFERRED TO ICU FOR BP CONTROL REPEAT CT SCAN ABD PELVIS DONE Plan discussed with: Other Dietary Evaluation Review Comments: Supplement with Ensure Clear TID when on clear liquid diet. Supplement with Ensure high proterin TID when pt can have a full liquid diet or texture as tolerated regular diet.. Expected Outcomes/Goals: gradual wt gain. avoid wt loss VILMA STRANGE MD Jul 04, 2024 14:59
[2024-07-04] MEDS: ROCURONIUM 10MG/ML 10ML VIAL IV ONE ×2 (15:03→18:57)
[2024-07-04] MEDS: MIDAZOLAM DRIP 50 mg/50mL 50 ML IV SCH (15:15)
[2024-07-04] MEDS: fentaNYL Drip 2500mCg/250mlNS 250 ML IV SCH (15:15)
[2024-07-04] MEDS ORDERED: PHENYLEPHRINE IV 250 ML IV SCH (15:15)
--- NOTE | 2024-07-04 15:16 | DVH ---
INDICATION: RESPIRATORY DISTRESS TECHNIQUE: Frontal view of the chest. COMPARISON: None FINDINGS: Right PICC tip in the SVC. The heart and mediastinal contours are grossly unremarkable. There is no evidence of pleural disease. The lungs are clear. The bony structures of the chest are intact with out fracture. IMPRESSION: 1. No evidence of acute disease.
[2024-07-04] MEDS: EPINEPHrine HCL 250 ML IV ONE (15:18)
[2024-07-04] MEDS: VASOPRESSIN 20 UNIT/ML ONE (15:18)
[2024-07-04] MEDS: PHENYLEPHRINE IV 250 ML IV ONE ×2 (15:18→17:12)
[2024-07-04] MEDS: EPINEPHrine HCL 250 ML IV SCH (15:24)
[2024-07-04] MEDS: VASOPRESSIN 20 UNITS in SODIUM CHL 0.9% 99 ML IV SCH (15:24)
--- NOTE | 2024-07-04 15:29 | DVH ---
CHEST RADIOGRAPH Indication: intubated Technique: Single frontal view of the chest was obtained COMPARISON: XY CHEST PORTABLE on DOS: 07/04/24 FINDINGS: Lines and Tubes: Endotracheal tube and right PICC in satisfactory position. Lungs: Clear Pleura: No effusion. No pneumothorax. Cardiomediastinal contours: Unremarkable Bones: Unremarkable IMPRESSION: Lines and tubes in satisfactory position.
--- NOTE | 2024-07-04 15:54 | DVHINCON2 ---
Date Seen: Jul 04, 2024 Referring Physician MD Marcel Reason for Consultation Sinus tachycardia History of Present Illness This is a 69-year-old female who presented to the emergency room with a chief complaint of abdominal pain for five days. The patient with abdominal pain was found with an ascending colon mass undergoing an initial colonoscopy with biopsy and subsequent laparoscopic lysis of adhesions with open right colon resection and primary anastomosis on 06/30/2024. Cardiology consulted given sudden hemodynamic deterioration requiring multiple vasopressors and with the patient found to be in a sinus tachycardia rhythm up to 140 bpm which improved to 90s bpm with LR IV bolus. A stat transthoracic echocardiogram was obtained at bedside revealing a preliminary optimal left ventricular ejection fraction. Prior to this event the patient underwent multiple 12 lead electrocardiograms x 4 revealing a normal sinus rhythm. Significant medical history includes peptic ulcer disease, arthritis, epilepsy, status post left nephrectomy, cannabinoid use, heavy alcohol use, and cachexia. Past Medical History Past medical history reviewed. No other significant than mentioned above. Past Surgical History Left nephrectomy Family History: Diabetes mellitus G8 FATHER, Onset:40's - 50 Hypertension G8 MOTHER, Onset:40's - 50 G8 FATHER, Onset:40's - 50 Family History Unable to obtain family history at this time. Social History Per records, heavy alcohol use and cannabinoid use. Allergies: Coded Allergies: NO KNOWN ALLERGIES (Unverified , 06/25/24) Home Meds Reported Medications Montelukast Sodium (Singulair) 10 Mg Tab, 10 MG PO DAILY for Asthma for 90 Days, #90 TAB 06/25/24 Levetiracetam (Levetiracetam) 500 Mg Tab, 1 TAB PO BID 06/25/24 Gabapentin (Gabapentin) 800 Mg Tab, 1 TAB PO TID 06/25/24 Duloxetine HCl (Duloxetine HCl) 30 Mg Cap, 1 CAP PO BID 06/25/24 Home Meds Home medications reviewed. Current Medications Current Medications Medications (Trade) Dose Ordered Sig/Sean Route PRN Reason Start Time Stop Time Status Last Admin Fat Emulsion Intravenous 100 ml/Potassium Phosphate 22 meq/ Calcium Gluconate 2.3 meq/Magnesium Sulfate 16 meq/ Multivitamins 10 ml/Chromium/ Copper/Manganese/ Zinc 1 ml/Amino Acids/Dextrose 1,124.9462 ml @ 47 mls/hr [id number] IV 07/03/24 22:00 07/04/24 21:59 07/03/24 21:15 Potassium Chloride 100 ml @ 50 mls/hr Q2H IV 07/04/24 04:45 07/04/24 07:42 DC Potassium Chloride 50 ml @ 25 mls/hr Q2H IV 07/04/24 08:00 07/04/24 15:59 07/04/24 09:01 Potassium Chloride/Dextrose/ Sod Cl 1,000 ml @ 75 mls/hr [id number] IV 07/04/24 09:15 07/04/24 22:34 07/04/24 12:53 Fat Emulsion Intravenous 100 ml/Sodium Chloride 60 meq/ Potassium Chloride 60 meq/ Magnesium Sulfate 8 meq/ Multivitamins 10 ml/Chromium/ Copper/Manganese/ Zinc 1 ml/Amino Acids/Dextrose 1,158 ml @ 48 mls/hr Q24H8M IV 07/04/24 22:00 07/05/24 21:59 Norepinephrine Bitartrate 250 ml @ 3.75 mls/hr Q24H IV 07/04/24 14:45 07/04/24 15:13 DC Epinephrine HCl 250 ml @ 7.5 mls/hr Q24H IV 07/04/24 15:15 Norepinephrine Bitartrate 250 ml @ 3.75 mls/hr Q24H IV 07/04/24 15:15 Phenylephrine HCl 250 ml @ 30 mls/hr Q8H20M IV 07/04/24 15:15 Vasopressin 20 units/Sodium Chloride 100 ml @ 9 mls/hr Q11H7M IV 07/04/24 15:15 Midazolam HCl 50 ml @ 1 mls/hr Q24H IV 07/04/24 15:15 Fentanyl Citrate 250 ml @ 2.5 mls/hr Q24H IV 07/04/24 15:15 Hydrocortisone Sodium Succinate (Solu-CORTEF INJECTION) 50 mg Q6HR IV 07/04/24 18:00 UNV Review of Systems Constitutional: No symptom reported Ears, Nose, & Throat: No symptom reported Eyes: No symptom reported Neurological: No symptoms reported Pulmonary/Respiratory: No symptom reported Cardiovascular: No symptom reported Gastrointestinal: Abdominal pain Genitourinary: No symptom reported Musculoskeletal: No symptom reported Skin: No symptom reported Psychiatric: No symptom reported Endocrine: No symptom reported Hemotologic/Lymphatic: No symptom reported Vital Signs Vital Signs Date Time Temp Pulse Resp B/P (MAP) Pulse Ox O2 Delivery O2 Flow Rate FiO2 07/04/24 15:30 126 16 100 07/04/24 12:00 95 Room Air* 0 07/04/24 08:00 98.3 98.3 Physical Exam General Appearance: Endotracheally intubated. Chemically sedated. On multiple vasopressors Head Exam: Normal inspection Neck Exam: Normal inspection. Normal alignment Pulmonary/Respiratory: Chest non-tender. Clear bilateral breath sounds. Endotracheally intubated Cardiovascular/Chest: Regular rate and rhythm. S1, S2. Sinus rhythm. No murmurs. No JVD. Peripheral Pulses: 2+ Radial (R). 2+ Radial (L). 2+ Pedal (R). 2+ Pedal (L) Abdominal Exam: Normal bowel sounds. Soft. Mid abdominal incision present Ankle Exam: Negative ankle edema Lower extremities: Negative lower extremity edema Neuro/Mental Status: Chemically sedated. Withdrawn Thoughts/Psych: Unable to assess at this time Appearance: Withdrawn Skin Exam: Normal inspection. Pale color. Cool to touch. Dry Labs/Diagnostic Data Labs Test 07/04/24 14:43 07/04/24 13:41 07/04/24 03:15 07/03/24 10:29 Range/Units POC Glucose 254 H 70-106 mg/dl White Blood Count 12.3 H 4.4-10.8 10^3/uL Red Blood Count 2.79 L 4.0-5.20 10^6/uL Hemoglobin 8.5 #L 12.2-16.2 g/dL Hematocrit 25.4 #L 36.0-46.0 % Mean Corpuscular Volume 90.9 80.0-100.0 fL Mean Corpuscular Hemoglobin 30.6 28.0-32.0 pg Mean Corpuscular Hemoglobin Concent 33.6 32.0-36.0 g/dL Red Cell Distribution Width 12.8 11.8-14.3 % Platelet Count 257 140-450 10^3/uL Mean Platelet Volume 9.6 6.9-10.8 fL Neutrophils (%) (Auto) 65.4 37.0-80.0 % Lymphocytes (%) (Auto) 24.1 10.0-50.0 % Monocytes (%) (Auto) 7.1 0.0-12.0 % Eosinophils (%) (Auto) 3.0 0.0-7.0 % Basophils (%) (Auto) 0.4 0.0-2.0 % Neutrophils # (Auto) 8.1 1.6-8.6 10 ^3/uL Lymphocytes # (Auto) 3.0 0.4-5.4 10 ^3/uL Monocytes # (Auto) 0.9 0-1.3 10 ^3/uL Eosinophils # (Auto) 0.4 0-0.8 10 ^3/uL Basophils # (Auto) 0 0-0.2 10 ^3/uL Nucleated Red Blood Cells 0.0 % Sodium Level 138 136-145 mmol/L Potassium Level 3.7 3.5-5.1 mmol/L Chloride Level 105 # 98-107 mmol/L Carbon Dioxide Level 26 20-31 mmol/L Anion Gap 7 5-15 Blood Urea Nitrogen 20 9-23 mg/dL Creatinine 0.79 0.550-1.02 mg/dL Glomerular Filtration Rate Calc 81 >90 mL/min BUN/Creatinine Ratio 25.3 H 10.0-20.0 Serum Glucose 238 H 74-106 mg/dL Calcium Level 8.6 L 8.7-10.4 mg/dL Magnesium Level 2.1 1.6-2.6 mg/dL Total Bilirubin 0.5 0.2-1.0 mg/dL Aspartate Amino Transferase (AST) 338 H 13-40 U/L Alanine Aminotransferase (ALT) 385 H 7-40 U/L Alkaline Phosphatase 105 46-116 U/L Total Protein 5.2 L 5.7-8.2 g/dL Albumin 3.3 3.2-4.8 g/dL Phosphorus Level 3.8 2.4-5.1 mg/dL Blood Gas Specimen Type Venous Blood Gas Sample Site Vbg - n/a Blood Gas Patient Temperature 37.0 Arterial Blood Date Drawn [id number] Charles Test N/a Venous Blood pH 7.399 7.320-7.430 Venous Blood pCO2 at Patient Temp 40.1 38.0-54.0 mmHg Venous Blood pO2 at Patient Temp < 36.5 23.0-48.0 mmHg Venous Blood HCO3 24.2 22.0-29.0 mmol/L Venous Blood Base Excess -0.5 -2.0-3.0 mmol/L Blood Gas Modality Room air FiO2 % 21.0 Specimen Drawn By estela yang rn Test 07/02/24 05:34 06/28/24 05:15 06/27/24 14:42 06/26/24 05:06 Range/Units Triglycerides Level 106 < 150 mg/dL Prothrombin Time 10.9 9.3-11.8 sec Prothrombin Time INR 1.03 0.9-1.15 Activated Partial Thromboplast Time 25.6 24.5-34.5 SEC CA 125 Antigen 8.2 0.0-38.1 U/mL Carcinoembryonic Antigen 1.38 <=5.0 ng/mL Test 06/25/24 09:45 06/25/24 09:37 Range/Units Lipase 56 H 12-53 U/L Urine Color Yellow Yellow Urine Clarity Clear Clear Urine pH 5.5 5.0-9.0 Urine Specific [place] 1.023 1.001-1.035 Urine Protein Trace H Negative Urine Ketones Negative Negative Urine Blood Negative Negative /uL Urine Nitrite Negative Negative Urine Bilirubin Negative Negative Urine Urobilinogen Normal Negative mg/dL Urine Leukocyte Esterase Negative Negative /uL Urine RBC 1 0 - 4 /hpf Urine Microscopic WBC 2 0-5 /HPF Urine Squamous Epithelial Cells Few <5 /hpf Urine Bacteria None seen None Seen /hpf Urine Mucus Few None Seen Urine Glucose Normal Normal mg/dL Microbiology Date/Time Source Procedure Growth Status 07/03/24 11:30 Nose MRSA Screen - Final Complete Assessment Sinus tachycardia in the setting of hypovolemic shock Rule out structural heart disease Ascending colon mass status post resection Hx of left-sided nephrectomy Cachexia Plan/Recommendation (Dr. Nix) Obtain a transthoracic echocardiogram to evaluate cardiac function. Sinus tachycardia in the setting of hypovolemic shock. Continue IV fluids bolus and maintenance as well as vasopressors for hemodynamic support. Infuse 1 unit of PRBCs given down trending H&H, highly suspected to have worsened at this time. Notify primary care team and GI consultants of patient's clinical deterioration/status. In the setting of an unremarkable echocardiogram, there is no further cardiac work-up indicated at this time. Thank you for allowing us to participate in this patient's care. Please call if you have any questions or concerns. Critical care time: 40 min. This medical document was created using an electronic medical record system with voice recognition software and computerized dictation system. Although this document has been carefully reviewed, there might still be some phonetic and typographical errors. Occasional wrong-word or ``sound-alike substitutions may have occurred due to the inherent limitations of voice recognition software. These areas are purely typographical due to imperfections of the software programs and do not reflect any compromise in the patient's medical care. Please read the chart carefully and recognize, using context, where these substitutions have occurred. Plan discussed with: Other NYHA Physical activity limitations: NA Date of Service: Jul 04, 2024 Billing Provider: TARIK LOCKE Cardiology Common Codes: 90045-ESHNIWRH CARE 30-74 MIN TARIK LOCKE Jul 04, 2024 15:54
[2024-07-04] MEDS: LACTATED RINGER'S 1,000 ML IV ONE (16:00)
[2024-07-04] MEDS: SODIUM BICARB 8.4% 50Meq/50ml SYR Vial IV ONE (16:00)
[2024-07-04 16:03] LABS: Base Excess -23.2 mmol/L (-2.0-3.0)
[2024-07-04] MEDS ORDERED: VANCOMYCIN PER PHARMACY 0 MG IV SCH (16:15)
--- NOTE | 2024-07-04 16:29 | DVHNC2 ---
Intubation Indication: Altered Mental Status, Airway Protection Prep: Preoxygenation Pretreated with: Sedation (etomidate) Medicated with: Other (uyen) Intubation Approach: Orotracheal Intubation size: cm (7.5) Informed consent obtained: Yes (emergent) Date of Service: Jul 04, 2024 Billing Provider: CHUCK JOSE MD Common Visit Codes: PROCEDURE ONLY Procedure Codes: [id number] CHUCK JOSE MD Jul 04, 2024 16:29
[2024-07-04] MEDS: SODIUM BICARB 50mEq/50ml Vial 150 ML in D5W 5% 1,000 ML IV SCH (16:30)
[2024-07-04] MEDS: HYDROCORTISONE SOD SUCC 100 MG/2ML INJ VIAL IV ONE (16:30)
[2024-07-04] MEDS: diphenhdrAMINE HCL 50 MG/1 ML VL ONE (17:47)
[2024-07-04] MEDS: methylPREDNISolone SOD SUCC 125 MG/2 ML VL ONE (17:47)
[2024-07-04] MEDS: FAMOTIDINE (10MG/ML) 2ML VL IV ONE ×2 (17:48→17:58)
[2024-07-04] MEDS ORDERED: IOHEXOL 350 MG/ML 100ML IJ ONE (17:54)
[2024-07-04] MEDS: methylPREDNISolone SOD SUCC 125 MG/2 ML VL IV ONE (17:58)
[2024-07-04] MEDS: HYDROCORTISONE SOD SUCC 100 MG/2ML INJ VIAL IV SCH (18:00)
[2024-07-04] MEDS: PHENYLEPHRINE INJ 80 MG in SODIUM CHL 0.9% 242 ML IV SCH (18:00)
[2024-07-04] MEDS: diphenhdrAMINE HCL 50 MG/1 ML VL IV ONE (18:02)
[2024-07-04] MEDS: MEROPENEM 500MG IVPB 50 ML IV ONE (18:30)
[2024-07-04] MEDS: NOREPINEPHRINE BITARTRATE 32 MG in SODIUM CHL 0.9% 218 ML IV SCH (18:55)
[2024-07-04] MEDS: NOREPINEPHRINE 8 MG/250ML KIT 250 ML IV ONE (18:58)
[2024-07-04] MEDS ORDERED: ATROPINE SULF 1 MG/10ml SYR ONE (19:56)
[2024-07-04] MEDS ORDERED: VANCOMYCIN 750MG KIT 100 ML IV SCH (20:00)
[2024-07-04] MEDS: InsuLIN REG 1unit/0.01ml Soln (100units/ml) SC ONE (20:13)
[2024-07-04] MEDS: DOPamine 1600MCG/ML D5W 250 ML IV SCH (20:15)
[2024-07-04] MEDS ORDERED: SODIUM BICARB 8.4% 50Meq/50ml SYR INJ ONE (20:51)
[2024-07-04 20:54] LABS: Hematocrit 18.6 % (36.0-46.0); Mean Corpuscular Hemoglobin 29.4 pg (28.0-32.0); Mean Corpuscular Hgb Conc. 27.4 g/dL (32.0-36.0); Mean Corpuscular Volume 107.3 fL (80.0-100.0); Red Blood Cells 1.74 10^6/uL (4.0-5.20); Red Cell Distribution Width 15.3 % (11.8-14.3); White Blood Cell 18.1 10^3/uL (4.4-10.8)
[2024-07-04 20:58] LABS: Chloride 105 mmol/L (98-107)
[2024-07-04 20:59] LABS: Anion Gap 31 (5-15)
[2024-07-04] MEDS ORDERED: SODIUM BICARB 8.4% 50Meq/50ml SYR Vial IV ONE (21:00)
[2024-07-04 21:04] LABS: BUN/Creatinine Ratio 16.8 (10.0-20.0); Blood Urea Nitrogen 19 mg/dL (9-23)
[2024-07-04 21:05] LABS: Magnesium 2.6 mg/dL (1.6-2.6)
[2024-07-04 21:18] LABS: Calcium 8.2 mg/dL (8.7-10.4); Carbon Dioxide 11 mmol/L (20-31); Potassium 5.2 mmol/L (3.5-5.1); Sodium 147 mmol/L (136-145)
[2024-07-04 21:19] LABS: Glucose 514 mg/dL (74-106)
--- NOTE | 2024-07-04 21:26 | DVHPN2 ---
Progress Note - Dictate Date Seen: Jul 04, 2024 Medical Necessity Reason Pt with a Central, PICC or Fol: No Subjective POD # 3 Pt S/P open R hemicolectomy Pt had sudden hemodynamic deterioration initially with bradycardia followed by tachycardia after being given atropine Patient was requiring multiple vasopressors and with the patient found to be in a sinus tachycardia rhythm up to 140 bpm which improved to 90s bpm with LR IV bolus. A stat transthoracic echocardiogram was obtained at bedside revealing a preliminary optimal left ventricular ejection fraction. Patient required to be intubated and sedated and is undergoing neuro workup Her repeat hemoglobin was low at 8.5 and patient received a unit of PRBC No active GI bleeding has been noted or reported vital signs Vital Sign Date Time Temp Pulse Resp B/P (MAP) Pulse Ox O2 Delivery O2 Flow Rate FiO2 07/04/24 20:18 121 24 100 07/04/24 18:45 92.8 199.0 07/04/24 18:00 0 Mechanical Ventilator+ 07/04/24 14:30 2 Total Intake and Output 07/03/24 07/03/24 07/04/24 15:00 23:00 07:00 Intake Total 797.0 ml 1380.0 ml 1248 ml Output Total 700 ml 650 ml Balance 797.0 ml 680.0 ml 598 ml medications Current Medications Medications Dose Ordered Sig/Sean Route Start Time Stop Time Status Last Admin Dose Admin Ondansetron HCl 4 mg Q4HP PRN IV 06/25/24 12:45 07/04/24 12:51 4 MG Acetaminophen 650 mg Q6HP PRN PO 06/25/24 12:45 Hold Lorazepam 0.25 mg Q6HP PRN IV 06/25/24 22:15 07/04/24 13:12 0.25 MG Gabapentin 300 mg TID PO 06/26/24 22:00 07/03/24 05:23 300 MG Labetalol HCl 10 mg Q2HPRN PRN IV 06/28/24 08:30 07/03/24 08:37 10 MG Diagnostic Test (Pha) 1 strip Q6HR 06/30/24 00:00 07/04/24 18:00 1 STRIP Insulin Human Regular FOLLOW SLIDING SCALE Q6HR SC 06/30/24 00:00 07/04/24 11:59 2 UNITS Dextrose 50 ml UD IV 06/29/24 22:00 Levetiracetam 100 ml @ 400 mls/hr BID IV 06/30/24 10:00 07/04/24 09:57 400 MLS/HR Sodium Chloride 10 ml QSHIFT@10,22 IV 06/30/24 22:00 07/04/24 09:57 10 ML Hydromorphone HCl 0.5 mg Q4HPRN PRN IV 07/01/24 09:45 07/03/24 21:07 0.5 MG Amino Acids 0 ml @ 0 mls/hr PER PHARMACY IV 07/01/24 13:45 Pantoprazole Sodium 40 mg DAILY IV 07/02/24 10:00 07/04/24 09:56 40 MG Enoxaparin Sodium 40 mg DAILY SC 07/02/24 10:00 07/04/24 09:57 40 MG Nitroglycerin 250 ml @ 1.5 mls/hr Q24H IV 07/03/24 09:30 07/03/24 11:19 1.5 MLS/HR Fat Emulsion Intravenous 100 ml/Potassium Phosphate 22 meq/ Calcium Gluconate 2.3 meq/Magnesium Sulfate 16 meq/ Multivitamins 10 ml/Chromium/ Copper/Manganese/ Zinc 1 ml/Amino Acids/Dextrose 1,124.9462 ml @ 47 mls/hr [id number] IV 07/03/24 22:00 07/04/24 21:59 07/03/24 21:15 47 MLS/HR Potassium Chloride/Dextrose/ Sod Cl 1,000 ml @ 75 mls/hr [id number] IV 07/04/24 09:15 07/04/24 22:34 07/04/24 12:53 75 MLS/HR Fat Emulsion Intravenous 100 ml/Sodium Chloride 60 meq/ Potassium Chloride 60 meq/ Magnesium Sulfate 8 meq/ Multivitamins 10 ml/Chromium/ Copper/Manganese/ Zinc 1 ml/Amino Acids/Dextrose 1,158 ml @ 48 mls/hr Q24H8M IV 07/04/24 22:00 07/05/24 21:59 Epinephrine HCl 250 ml @ 7.5 mls/hr Q24H IV 07/04/24 15:15 07/04/24 15:24 37.5 MLS/HR Vasopressin 20 units/Sodium Chloride 100 ml @ 9 mls/hr Q11H7M IV 07/04/24 15:15 07/04/24 15:24 9 MLS/HR Midazolam HCl 50 ml @ 1 mls/hr Q24H IV 07/04/24 15:15 Fentanyl Citrate 250 ml @ 2.5 mls/hr Q24H IV 07/04/24 15:15 Hydrocortisone Sodium Succinate 50 mg Q6HR IV 07/04/24 18:00 Phenylephrine HCl 80 mg/Sodium Chloride 250 ml @ 7.5 mls/hr Q24H IV 07/04/24 16:00 07/04/24 18:00 33.75 MLS/HR Norepinephrine Bitartrate 32 mg/ Sodium Chloride 250 ml @ 0.938 mls/ hr Q24H IV 07/04/24 16:00 07/04/24 18:55 14.063 MLS/HR Sodium Bicarbonate 150 ml/Dextrose 1,150 ml @ 100 mls/hr [id number] IV 07/04/24 16:00 07/04/24 16:30 100 MLS/HR Vancomycin HCl 0 ml @ 0 mls/hr UD IV 07/04/24 16:15 Meropenem 50 ml @ 17 mls/hr Q12HR IV 07/04/24 22:00 Vancomycin HCl 100 ml @ 100 mls/hr Q12H IV 07/04/24 20:00 Dopamine HCl/ Dextrose 250 ml @ 7.913 mls/ hr Q24H IV 07/04/24 20:15 objective General Appearance: Ill-appearing lady, intubated sedated HEENT: Atraumatic, PERRLA, EOMI, Mucous membr. moist/pink Respiratory: Normal air movement Cardiovascular: Sinus tachycardia, hypotension Abdominal: Soft; nontender nondistended Abdominal examination is benign soft and incision site is clean Extremities: No clubbing, No cyanosis, No edema, Normal pulses, No tenderness/swelling Skin: No significant lesion Neuro: Normal speech, Normal tone, Sensation intact Psych/Mental Status: Mental status NL laboratory and microbiology Test 07/04/24 20:36 Range/Units Serum Glucose Pending CT SCAN ABD PELVIS IMPRESSION: Post resection of ascending colonic mass. Postsurgical changes are present in the right lower quadrant. Small volume complex ascites; nonspecific. Problems(with codes): (1) Uterine mass (2) Colonic neoplasm (3) History of nephrectomy (4) Hyperglycemia (5) Elevated troponin (6) Elevated liver enzymes Prognosis Plan IV Protonix 40 mg q.12 hours Monitor for any intra-abdominal bleeding Follow serial H&H IV antibiotics Monitor liver enzymes, suspected hypoxic liver injury CT brain pending Cardiology consult appreciated Pressor support, supportive care Transfuse and keep hemoglobin above eight Dietary Evaluation Review Comments: Supplement with Ensure Clear TID when on clear liquid diet. Supplement with Ensure high proterin TID when pt can have a full liquid diet or texture as tolerated regular diet.. Expected Outcomes/Goals: gradual wt gain. avoid wt loss Plan discussed with: Other (ER Nurse and Dr Rod) JAKOB STRANGE MD Jul 04, 2024 21:25
[2024-07-04] MEDS ORDERED: PHENYLEPHRINE HCL 10 MG/ML VL ONE (21:30)
[2024-07-04 21:38] LABS: Basophils % (manual) 0 (0.0-2.0); Blast Cells 0; Hemoglobin 5.1 g/dL (12.2-16.2); Platelet Count (auto) 89 10^3/uL (140-450); Promyelocytes % 0; Reactive Lymphocytes 0
[2024-07-04 21:40] LABS: Band Neutrophils % (manual) 6; Eosinophils % (manual) 1 (0-7); Lymphocytes % (manual) 22 (10.0-50.0); Monocytes % (manual) 9 (0-12)
[2024-07-04 21:41] LABS: Metamyelocytes % 3; Myelocytes % 2
[2024-07-04 21:42] LABS: Platelet Estimate Decreased
[2024-07-04 21:43] LABS: Anisocytosis Slight
[2024-07-04 21:44] LABS: Macrocytosis Moderate
[2024-07-04] MEDS: PANTOPRAZOLE 40mg/50ML NS AE 50 ML IV SCH (21:45)
[2024-07-04] MEDS ORDERED: PANTOPRAZOLE 80 MG in SODIUM CHL 0.9% 100 ML IV ONE (21:45)
[2024-07-04] MEDS ORDERED: PANTOPRAZOLE 40mg/50ML NS AE 50 ML IV SCH (21:45)
[2024-07-04 21:50] LABS: Hematocrit 16.9 % (36.0-46.0); Mean Corpuscular Hemoglobin 30.6 pg (28.0-32.0); Mean Corpuscular Volume 102.1 fL (80.0-100.0); Platelet Count (auto) 76 10^3/uL (140-450); Red Blood Cells 1.66 10^6/uL (4.0-5.20); Red Cell Distribution Width 15.2 % (11.8-14.3); White Blood Cell 20.1 10^3/uL (4.4-10.8)
[2024-07-04 21:55] LABS: Hemoglobin 5.1 g/dL (12.2-16.2)
[2024-07-04 21:56] LABS: Basophils % (manual) 0 (0.0-2.0); Blast Cells 0; Monocytes % (manual) 0 (0-12); Promyelocytes % 0; Reactive Lymphocytes 0
[2024-07-04 21:57] LABS: Chloride 105 mmol/L (98-107); Potassium 4.9 mmol/L (3.5-5.1)
[2024-07-04 21:58] LABS: Anion Gap 36 (5-15)
[2024-07-04] MEDS ORDERED: PANTOPRAZOLE 40 MG/10 ML VIAL INJ IV SCH (22:00)
[2024-07-04] MEDS ORDERED: MEROPENEM 1GM IVPB 50 ML IV SCH (22:00)
[2024-07-04] MEDS ORDERED: TPN PER PHARMACY IV NR (22:00)
[2024-07-04 22:02] LABS: Calcium 8.2 mg/dL (8.7-10.4); Carbon Dioxide 11 mmol/L (20-31); Sodium 152 mmol/L (136-145)
[2024-07-04 22:03] LABS: BUN/Creatinine Ratio 16.9 (10.0-20.0); Blood Urea Nitrogen 21 mg/dL (9-23)
[2024-07-04] MEDS ORDERED: ATROPINE SULF 1 MG/10ml SYR IM ONE (22:06)
[2024-07-04 22:07] LABS: Glucose 532 mg/dL (74-106)
[2024-07-04] MEDS ORDERED: EPINEPHrine HCL 1 MG/10 ML SYRG ONE (22:40)
[2024-07-04 22:41] LABS: Band Neutrophils % (manual) 3; Eosinophils % (manual) 3 (0-7); Lymphocytes % (manual) 29 (10.0-50.0); Metamyelocytes % 5; Myelocytes % 2
[2024-07-04 22:42] LABS: Anisocytosis Slight; Macrocytosis Slight; Platelet Estimate Decreased
[2024-07-04] MEDS ORDERED: EPINEPHrine HCL 1 MG/10 ML SYRG IV ONE (22:42)
--- NOTE | 2024-07-04 22:47 | PRN ---
Misceleneous Note Note Note Multiple cardiac arrest overnight, patient with 4 pressors maxed. possible acute hemorrhage, unstable for any intervention. After the last cardiac arrest, 3 rounds were done, maxed out pressors, epi, and bicarb push. Last vbg showed ph of 6.7. Medical futility was called. Time of 22.43 pm. CHUCK JOSE MD Jul 04, 2024 22:47
[2024-07-04 23:28] LABS: Prothrombin Time 28.2 sec (9.3-11.8)
[2024-07-04 23:30] LABS: INR 2.96 (0.9-1.15)
--- NOTE | 2024-07-05 04:40 | RESUS ---
CODE BLUE ASSESSSMENT History of Events History of Events: 69 year old female presents to the ED with chief complaint of diarrhea and blood in stool. Patient reports that she has been experiencing diarrhea with noted blood present in her stools and associated abdominal cramping for the past 5 days. Patient relays that she has been drinking 2 beers a day up until last week. Patient states she is currently on Baclofen for chronic body pains. Patient denies any N/V, hematemesis, fever, chills, dysuria, hematuria, or dizziness. On ct pt found to have a r. colon mass, she had Laprascopy colon resection on 06/30 and had to transferred to icu on 07/03. Tonight became bradycardic and arrested. Pt was intubated sedated and maxed on multiple pressors. Initial Information Date: Jul 04, 2024 Time: 21:24 Location of Arrest: ICU ([facility]) Arrest Witnessed: Yes CPR started initial time: 21:24 CPR started by whom: Hospital Staff Pre-Hospital Care: ACLS Type of arrest: Cardiac, Respiratory, Adult Spontaneous Respirations: No Pulse Present: No Monitoring: ECG, Pulse Oximetry, Apnea, Telemetry Crash Cart Opened and Supplies: Yes Airway Ventilation Breathing at Onset: Apneic O2 Sat by Pulse Oximetry: 0 Oxygen Delivery Method: Mechanical Ventilator Artificial Ventilation: Bag/Endo tube Intubation Size: 7.5 cuffed Tube secured at: 24 Comments: pt intubated prior to code Circulation Circulation : Time: 21:24 Pulse Rate (adult): 0 Blood Pressure Systolic: 0 Blood Pressure Diastolic: 0 Temperature (Fahrenheit): 92.5 Procedure - IV Procedure - IV #1: IV Side: Left IV Location: Wrist IV Gauge: 20 Comment placed prior to code Procedure - IV #2: IV Side: Right IV Location: Forearm Anterior IV Gauge: 20 Comment placed prior to code Medications & Response Medications and Responses #1: Medication Time: 21:24 ADULT Medications Given ADULT: Epinephrine 1 mg, Atropine 1 mg, 2 Amps Na Bicarb, Calcium Chloride 10 mL Route of Administration: IV Heart Rate: 0 Blood Pressure Systolic: 0 Blood Pressure Diastolic: 0 Respiratory Rate: 0 O2 Sat by Pulse Oximetry: 0 Comment PULSE [id number] NO PULSE Medications and Responses #2: ADULT Medications Given ADULT: Epinephrine 1 mg Route of Administration: IV Heart Rate: 0 EKG Rhythm: PEA Blood Pressure Systolic: 0 Blood Pressure Diastolic: 0 Respiratory Rate: 0 O2 Sat by Pulse Oximetry: 0 EKG Rhythm: PEA Comment pulse check at 2127 ROSC. 2210 pt became bradycardic again and lost pulses. Medications and Responses #3: Medication Time: 22:10 ADULT Medications Given ADULT: Epinephrine 1 mg, Sodium Bacarbinate 50 meq Route of Administration: IV Heart Rate: 0 EKG Rhythm: PEA Blood Pressure Systolic: 0 Blood Pressure Diastolic: 0 Respiratory Rate: 0 O2 Sat by Pulse Oximetry: 0 EKG Rhythm: PEA Comment pulse check at 2212, pulse check at 2214 Rosc. 2218 no pulse Medications and Responses #4: Medication Time: 22:18 ADULT Medications Given ADULT: Epinephrine 1 mg, Sodium Bacarbinate 50 meq Route of Administration: IV Heart Rate: 0 EKG Rhythm: PEA Blood Pressure Systolic: 0 Blood Pressure Diastolic: 0 Respiratory Rate: 0 O2 Sat by Pulse Oximetry: 0 EKG Rhythm: PEA Comment no pulse 2220 Medications and Responses #5: Medication Time: 22:21 ADULT Medications Given ADULT: Epinephrine 1 mg, Calcium Chloride 10 mL Route of Administration: IV Heart Rate: 0 EKG Rhythm: PEA Blood Pressure Systolic: 0 Blood Pressure Diastolic: 0 Respiratory Rate: 0 O2 Sat by Pulse Oximetry: 0 EKG Rhythm: PEA Comment no pulse 2222, pulse check as per MD at 2223 ROSC hr 55 bp 160/59. 2226 no pulse. Medications and Responses #6: Medication Time: 22:27 ADULT Medications Given ADULT: Epinephrine 1 mg, Sodium Bacarbinate 50 meq Heart Rate: 0 EKG Rhythm: PEA Blood Pressure Systolic: 0 Blood Pressure Diastolic: 0 Respiratory Rate: 0 O2 Sat by Pulse Oximetry: 0 EKG Rhythm: PEA Comment pulse check 2229 no pulse Medications and Responses #7: Medication Time: 22:30 ADULT Medications Given ADULT: Epinephrine 1 mg Route of Administration: IV Heart Rate: 0 EKG Rhythm: PEA Blood Pressure Systolic: 0 Blood Pressure Diastolic: 0 Respiratory Rate: 0 O2 Sat by Pulse Oximetry: 0 EKG Rhythm: PEA Comment 2231 no pulse Medications and Responses #8: Medication Time: 22:33 ADULT Medications Given ADULT: Epinephrine 1 mg, Sodium Bacarbinate 50 meq Route of Administration: IV Heart Rate: 0 Blood Pressure Systolic: 0 Blood Pressure Diastolic: 0 Respiratory Rate: 0 O2 Sat by Pulse Oximetry: 0 EKG Rhythm: PEA Comment no pulse 2235 Medications and Responses #9: Medication Time: 22:36 ADULT Medications Given ADULT: Epinephrine 1 mg Route of Administration: IV Heart Rate: 0 EKG Rhythm: PEA Blood Pressure Systolic: 0 Blood Pressure Diastolic: 0 Respiratory Rate: 0 O2 Sat by Pulse Oximetry: 0 EKG Rhythm: PEA Comment no [id number], 2239 Medications and Responses #10: Medication Time: 22:39 ADULT Medications Given ADULT: Epinephrine 1 mg, Sodium Bacarbinate 50 meq Heart Rate: 0 EKG Rhythm: PEA Blood Pressure Systolic: 0 Blood Pressure Diastolic: 0 Respiratory Rate: 0 O2 Sat by Pulse Oximetry: 0 EKG Rhythm: PEA Comment 2241 no pulse Medications and Responses #11: Medication Time: 22:42 ADULT Medications Given ADULT: Epinephrine 1 mg Route of Administration: IV Heart Rate: 0 Blood Pressure Systolic: 0 Blood Pressure Diastolic: 0 Respiratory Rate: 0 O2 Sat by Pulse Oximetry: 0 EKG Rhythm: PEA Comment no pulse 2143, pt pronounced Pacing Pacer Pads Applied and Pacing: Yes Procedure - Central Venous Cat Central venous catheter site: Comment: placed prior to code r. upper arm picc line Procedure - Mendez Catheter Comment: placed prior to code Nurses Notes Natalie Coma Scale Eye Opening: None (1) Elton Coma Scale Verbal: None (1) Elton Coma Scale Motor: None (1) Glascow Total: 3 Pupil Reaction: Non Reactive EKG Rhythm: Asystole Time Code Ended Time Code Ended: 22:43 Post Arrest Status: Outcome of code: Unsuccessful Patient pronounced by: DR JOSE Time patient pronounced: 22:43 Code Team Present: DR JOSE, DR RUANO, DANIELLE ANDERSON RN HS, CARLIE VETERINARY RECEPTIONIST, BEN RN, SELENE EDWARD RN ZENIA CCT, DRE NARVAEZ RT Post Resuscitation Neurologica Pupil Size: 4 Comment: fixed DANIELLE JHAVERI Jul 05, 2024 04:40
--- NOTE | 2024-07-05 15:20 | ECG ---
[facility] Test Date: 2024-07-04 Test Time: 13:33:42 Pat Name: DAMIAN EDEN Department: icu Room: [address] [place] [address] A Gender: F Check Out Clerk: mik : 1955 Requested By: BOBO JONES Order Number: [id number] Reading MD: Lon Kurtz Measurements Intervals Yoder Rate: 142 P: 261 OR: 52 QRS: 61 QRSD: 88 T: 84 QT: 351 QTc: 540 Interpretive Statements Ectopic atrial tachycardia, unifocal ST depression, probably rate related Prolonged QT interval Electronically Signed On 07-07-2024 20:23:02 PDT by Lon Kurtz Please click the below link to view image of tracing.
--- NOTE | 2024-07-08 16:24 | DVHSR ---
APPROVED REPORT EXAM: LIMITED Two-dimensional and M-mode echocardiogram with Doppler and color Doppler. Blood Pressure: 123/71 mmHg INDICATION Tachycardia RISK FACTORS Height: 62, Weight: 93 DIMENSIONS LVDd3.5 (3.8-5.7cm)LA (2D) (1.9-4.0cm)Aortic Root (2.0-3.7cm) LVDs2.0 (2.5-4.0cm)LA (MM) (1.9-4.0cm)Aortic Cusp Exc (1.5-2.0cm) EF (%) 75.0 (55-70%)Rt. Atrium (1.9-4.0cm)Asc. Aorta cm Mitral Valve MitralMitral Stenosis A wavem/sMV Peak GR.129mmHg E/A ratio0.02D MVAcm2 Other Information Technically limited study due to body habitus, patient position and patient on a vent. Limited for f unction only. Conclusion lvef 55% mild LVH trivial pericardial effusion noted very limited study , only sub images done
--- NOTE | 2024-07-15 18:43 | DVHDS2 ---
Discharge Summary Date of Admission Jun 25, 2024 at 12:45 Date of Discharge: Jul 05, 2024 Admitting Diagnosis Intractable abdominal pain, rule out GI bleed, colonic mass Labs/Diagnostic Data: Laboratory Results Test 07/04/24 22:02 07/04/24 21:36 07/04/24 20:36 07/04/24 20:35 Prothrombin Time 28.2 sec (9.3-11.8) Prothrombin Time INR 2.96 (0.9-1.15) D-Dimer, Quantitative > 35.20 mg/L FEU (0.0-0.49) White Blood Count 20.1 10^3/uL (4.4-10.8) Red Blood Count 1.66 10^6/uL (4.0-5.20) Hemoglobin 5.1 g/dL (12.2-16.2) Hematocrit 16.9 % (36.0-46.0) Mean Corpuscular Volume 102.1 fL (80.0-100.0) Mean Corpuscular Hemoglobin 30.6 pg (28.0-32.0) Mean Corpuscular Hemoglobin Concent 30.0 g/dL (32.0-36.0) Red Cell Distribution Width 15.2 % (11.8-14.3) Platelet Count 76 10^3/uL (140-450) Mean Platelet Volume 10.0 fL (6.9-10.8) Neutrophils (%) (Auto) % (37.0-80.0) Lymphocytes (%) (Auto) % (10.0-50.0) Monocytes (%) (Auto) % (0.0-12.0) Basophils (%) (Auto) % (0.0-2.0) Neutrophils # (Auto) 10 ^3/uL (1.6-8.6) Lymphocytes # (Auto) 10 ^3/uL (0.4-5.4) Monocytes # (Auto) 10 ^3/uL (0-1.3) Differential Total Cells Counted 100.0 (100) Neutrophils % (Manual) 58 (37.0-80.0) Band Neutrophils % (Manual) 3 Lymphocytes % (Manual) 29 (10.0-50.0) Monocytes % (Manual) 0 (0-12) Eosinophils % (Manual) 3 (0-7) Basophils % (Manual) 0 (0.0-2.0) Metamyelocytes % (manual) 5 Myelocytes % (Manual) 2 Promyelocytes % (Manual) 0 Blast Cells % (Manual) 0 Nucleated Red Blood Cells 2.0 % Reactive Lymphocytes 0 Platelet Estimate Decreased Anisocytosis (manual) Slight Macrocytosis Slight Reticulocyte Count (auto) 1.64 % (0.5-1.5) Sodium Level 152 mmol/L (136-145) Potassium Level 4.9 mmol/L (3.5-5.1) Chloride Level 105 mmol/L (98-107) Carbon Dioxide Level 11 mmol/L (20-31) Anion Gap 36 (5-15) Blood Urea Nitrogen 21 mg/dL (9-23) Creatinine 1.24 mg/dL (0.550-1.02) Glomerular Filtration Rate Calc 47 mL/min (>90) BUN/Creatinine Ratio 16.9 (10.0-20.0) Serum Glucose 532 mg/dL (74-106) Calcium Level 8.2 mg/dL (8.7-10.4) Lactate Dehydrogenase 1460 U/L (120-246) Immature Granulocytes % 2 Magnesium Level 2.6 mg/dL (1.6-2.6) Blood Gas Specimen Type Venous Blood Gas Sample Site Other Blood Gas Patient Temperature 37.0 Arterial Blood Date Drawn Charles Test N/a Venous Blood pH 6.712 (7.320-7.430) Venous Blood pCO2 at Patient Temp 63.5 mmHg (38.0-54.0) Venous Blood pO2 at Patient Temp < 36.5 mmHg (23.0-48.0) Venous Blood HCO3 7.9 mmol/L (22.0-29.0) Venous Blood Base Excess -29.2 mmol/L (-2.0-3.0) Blood Gas Set Respiration Rate 26.0 Blood Gas Modality ac FiO2 % 100.0 Blood Gas Tidal Volume 400.0 Blood Gas PEEP or CPAP 5.0 Specimen Drawn By [employer] homa delacruz Blood Gas Critical Value Read Back Yes Blood Gas Notified Whom sanaz Cueva Blood Gas Notified Time [id number] Blood Gas Notified By [employer] Worker homa delacruz Test 07/04/24 19:47 07/04/24 15:48 07/04/24 13:41 07/04/24 03:15 POC Glucose 526 mg/dl (70-106) Arterial Blood pH 6.964 (7.350-7.450) Arterial Blood Partial Pressure CO2 29.1 mmHg (32.0-45.0) Arterial Blood Partial Pressure O2 373.4 mmHg (83.0-108.0) Arterial Blood HCO3 6.5 mmol/L (21.0-28.0) Arterial Blood Oxygen Saturation 99.9 % (94.0-98.0) Arterial Blood Base Excess -23.2 mmol/L (-2.0-3.0) Arterial Blood Oxyhemoglobin 98.5 % (94.0-98.0) Arterial Blood Carboxyhemoglobin 1.3 % (0.5-1.5) Arterial Blood Methemoglobin 0.1 % (0.0-1.5) Blood Gas Total Hemoglobin 5.40 g/dL (12.0-16.0) Eosinophils (%) (Auto) 3.0 % (0.0-7.0) Eosinophils # (Auto) 0.4 10 ^3/uL (0-0.8) Basophils # (Auto) 0 10 ^3/uL (0-0.2) Total Bilirubin 0.5 mg/dL (0.2-1.0) Aspartate Amino Transferase (AST) 338 U/L (13-40) Alanine Aminotransferase (ALT) 385 U/L (7-40) Alkaline Phosphatase 105 U/L (46-116) Troponin I High Sensitivity 40 ng/L (</=34) Total Protein 5.2 g/dL (5.7-8.2) Albumin 3.3 g/dL (3.2-4.8) Phosphorus Level 3.8 mg/dL (2.4-5.1) Test 07/02/24 05:34 06/28/24 05:15 06/27/24 14:42 06/26/24 05:06 Triglycerides Level 106 mg/dL (< 150) Activated Partial Thromboplast Time 25.6 SEC (24.5-34.5) CA 125 Antigen 8.2 U/mL (0.0-38.1) Carcinoembryonic Antigen 1.38 ng/mL (<=5.0) Test 06/25/24 09:45 06/25/24 09:37 Lipase 56 U/L (12-53) Urine Color Yellow (Yellow) Urine Clarity Clear (Clear) Urine pH 5.5 (5.0-9.0) Urine Specific [place] 1.023 (1.001-1.035) Urine Protein Trace (Negative) Urine Ketones Negative (Negative) Urine Blood Negative /uL (Negative) Urine Nitrite Negative (Negative) Urine Bilirubin Negative (Negative) Urine Urobilinogen Normal mg/dL (Negative) Urine Leukocyte Esterase Negative /uL (Negative) Urine RBC 1 /hpf (0 - 4) Urine Microscopic WBC 2 /HPF (0-5) Urine Squamous Epithelial Cells Few /hpf (<5) Urine Bacteria None seen /hpf (None Seen) Urine Mucus Few (None Seen) Urine Glucose Normal mg/dL (Normal) Other Laboratory Tests 07/04/24 21:36 Brief Hx & Hospital Course: History of Present Illness Noris Quigley is a 69-year-old female with past medical history of arthritis, PUD, epilepsy, and left nephrectomy who presents to the ED with bloody diarrhea and cramps with the abdominal pain x5 days. Patient reports that she has been holding this off for some time but she knows that she gets bloody diarrhea constantly because of her peptic ulcer disease. Patient states that the pain is 5/10 intermittent and crampy like. Patient denies any chest pain, shortness of breath, fever, chills, recent trauma or injury, recent ingestion of spoiled food, recent sick contacts, lightheadedness, weakness, dizziness, nausea, or vomiting. Upon examination when given information about the CT abdominal pelvis results patient became very emotional and is unaware of any abnormalities or other diagnoses. Course of hospitalization: Patient was started on empiric antibiotic therapy. Patient had GI consultation for which patient had appropriate bowel prep undergoing colonoscopy. Patient was found to have the following findings on endoscopy: POSTOPERATIVE DIAGNOSES: 1. Patient had a large mass seen in the proximal ascending colon just beyond the hepatic flexure beyond which the colonoscope could not be advanced. 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 Moderate oozing was noted from biopsy sites and also within the large tumor 2. Moderate sigmoid diverticular disease with mild tortuosity of the colon 3. Trace to 1+ internal hemorrhoids otherwise grossly normal examination up to the site of the ascending colon mass PROCEDURE PERFORMED BY: Carleen David M.D. Patient underwent exploratory laparotomy by Dr. David. Following findings were noted: POSTOPERATIVE DIAGNOSIS: Right colon mass, with a bleed. PROCEDURE: Laparoscopic lysis of adhesions, with open right colon resection, primary anastomosis. SURGEON: Billy David MD Postoperatively the patient was able to have her diet advanced, and noted to be ambulating. The patient did have an issue of hypertension, on 07/04/2024, which at that time the patient was transferred to ICU and placed on a Tridil drip with the patient was stating that she was having some chest discomfort. Troponins were negative at that time. Patient was also had VBG which was unremarkable. The following morning, the patient was found to be without any complaints. Tridil drip was weaned off. Patient was noted to ambulate that morning. In the late morning and afternoon in the patient has significant hemodynamic changes, for which the patient ended up getting endotracheally intubated, placed on vasopressor therapy. Prior to those interventions the patient had CT scan with the following findings: IMPRESSION: Post resection of ascending colonic mass. Postsurgical changes are present in the right lower quadrant. Small volume complex ascites; nonspecific. Radiation optimization: All CT scans at this facility use at least one of these dose optimization techniques: automated exposure control mA and/or kV adjustment per patient size (includes targeted exams where dose is matched to clinical indication) or iterative reconstruction. ATED BY: EDGAR BEASLEY MD DICTATED DATE/TIME: 07/04/24 1442 Patient was found to have decreased hemoglobin to 8.5 patient was in the afternoon, and despite the patient receiving 2 units of PRBCs, the patient was hemoglobin continued to drop to 5.1. Dr. Sneha David was made aware in assessed with the patient in the ICU. Patient's overall clinical status continued to decline despite antibiotic therapy, volume resuscitation, vasopressor therapy. Patient had several episodes of cardiac arrest with the patient eventually not having return of spontaneous circulation. 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 Patient was counseled about treatment plan, medications, possible side effects, patientverbalized understanding. All questions were answered to the best of my ability. This discharge took greater then 30 minutes in planning, reviewing documentation, counseling the patient, and discussing with other team members." ASSESSMENT ASSESSMENT Assessment Date of Service: Jul 05, 2024 Billing Provider: BOBO JONES NP Common Visit Codes: 35437-FDM/OBS DISCH DAY <30MIN BOBO JONES NP Jul 15, 2024 18:43
== END 2024-07-04 22:43 | DRG 330 ==
LOC: ER 09:08 → OVERFLOW 12:45 → CENTRAL 16:57 → TELE-CENTR 07-02 19:54 → ICU WEST 07-03 10:43
PROVIDERS: ADMIT Nurse Practitioner Acute Care; ATTEND Nurse Practitioner Acute Care
PROC: 0DBK8ZX Excision of Ascending Colon, Via Natural or Artificial Opening Endoscopic, Diagnostic (ICD-10-PCS; 2024-06-29)
PROC: 02HV33Z Insertion of Infusion Device into Superior Vena Cava, Percutaneous Approach (ICD-10-PCS; 2024-06-30)
PROC: B548ZZA Ultrasonography of Superior Vena Cava, Guidance (ICD-10-PCS; 2024-06-30)
PROC: 0DTF0ZZ Resection of Right Large Intestine, Open Approach (ICD-10-PCS; principal; 2024-06-30 08:49)
PROC: 30233N1 Transfusion of Nonautologous Red Blood Cells into Peripheral Vein, Percutaneous Approach (ICD-10-PCS; 2024-07-04)
PROC: 5A1935Z Respiratory Ventilation, Less than 24 Consecutive Hours (ICD-10-PCS; 2024-07-04)
PROC: 0BH17EZ Insertion of Endotracheal Airway into Trachea, Via Natural or Artificial Opening (ICD-10-PCS; 2024-07-04)
PROC: 5A12012 Performance of Cardiac Output, Single, Manual (ICD-10-PCS; 2024-07-04)
DX: C18.2 Malignant neoplasm of ascending colon (principal); R18.8 Other ascites; R64 Cachexia; R65.10 Systemic inflammatory response syndrome (SIRS) of non-infectious origin without acute organ dysfunction; Z68.1 Body mass index [BMI] 19.9 or less, adult; F10.10 Alcohol abuse, uncomplicated; I46.9 Cardiac arrest, cause unspecified; G40.909 Epilepsy, unspecified, not intractable, without status epilepticus; D25.9 Leiomyoma of uterus, unspecified; J44.9 Chronic obstructive pulmonary disease, unspecified; F41.9 Anxiety disorder, unspecified; Z87.11 Personal history of peptic ulcer disease; I10 Essential (primary) hypertension; E87.6 Hypokalemia; K63.9 Disease of intestine, unspecified; R57.1 Hypovolemic shock; K57.30 Diverticulosis of large intestine without perforation or abscess without bleeding; E11.65 Type 2 diabetes mellitus with hyperglycemia; K52.9 Noninfective gastroenteritis and colitis, unspecified; K66.0 Peritoneal adhesions (postprocedural) (postinfection); Z79.899 Other long term (current) drug therapy; Z82.49 Family history of ischemic heart disease and other diseases of the circulatory system; Z83.3 Family history of diabetes mellitus; Z90.5 Acquired absence of kidney; K64.8 Other hemorrhoids; R63.6 Underweight
CPT/HCPCS: 36415; 36430; 36569; 36600; 71045; 71046; 74176; 74177; 76817; 76856; 76937; 80048; 80053; 81001; 82378; 82805; 82962; 83615; 83690; 83735; 84100; 84132; 84478; 84484; 85007; 85025; 85027; 85045; 85379; 85610; 85730; 86304; 86850; 86870; 86900; 86901; 86902; 86922; 87040; 87081; 92950; 93005; 93306; 94002; 96361; 96374; 97163; G0378; J0171; J0330; J0690; J1100; J1815; J2185; J2250; J2270; J2405; J2470; J2704; J3480; J3490; J7042; J7131